=== PATIENT | male | born 1945 | race Caucasian/White ===

== ENCOUNTER 2024-05-15 05:10 | Inpatient (IN) | payer MEDICARE, BC, SELFPAY ==
[2024-05-15] VITALS (8 sets, daily range): BP systolic 139–180; BP diastolic 73–92; PULSE 59–86; RESP 14–18; TEMP 36.1–36.8; O2SAT 97–100; BMI 28.8
--- NOTE | ~2024-05-15 | CT_ITS ---
EXAMINATION: CT abdomen pelvis w con DATE: 05/15/2024 06:11 INDICATION: Abdominal pain. TECHNIQUE: Computed tomography (CT) of the abdomen and pelvis was performed with 100 mL Omnipaque 350 intravenous contrast. Automated exposure control and iterative reconstruction technique were employe d. The dose-length product was 679.13 mGy-cm. COMPARISON: None. FINDINGS: The visualized portions of lung bases demonstrate mild atelectasis. There is a pneumatocele in right lung. No pleural effusion. Calcified right hilar lymph nodes are consistent with old granul omatous disease. Cardiomegaly is noted. There are coronary artery calcifications. No pericardial effu cedrick. There is a small sliding hiatal hernia. There are approximately 5 hypodense masses in the liver measuring up to 18 mm. The gallbladder, spleen, pancreas, and adrenal glands are normal. There are c ysts in the kidneys measuring up to 7.5 cm on the right. There are 3 stones in right kidney measuring up to 4 mm. There is a 3 mm stone in left kidney. The prostate is severely enlarged. There is diffus e bladder wall thickening, likely secondary to chronic outlet obstruction. There are multiple stones in the bladder measuring up to 4 mm. There is diverticulosis of the colon without evidence of diverti culitis. There is focal wall thickening of the ascending colon, consistent with primary malignancy. T he colon is distended proximal to this area. The appendix is normal. There are no pathologically enla rged lymph nodes. There is no free intraperitoneal fluid. There is a right inguinal hernia containing fat. There is severe lumbar spondylosis. There is chronic height loss of multiple vertebral bodies c ourse of L1. IMPRESSION: 1. Focal wall thickening of the ascending colon, consistent with primary malignancy with partial otilia l obstruction. 2. Liver masses, consistent with metastatic disease. Ultrasound-guided core needle biopsy of a liver mass is recommended. Reviewed, dictated and finalized at location A. IMPRESSION: 1. Focal wall thickening of the ascending colon, consistent with primary malign naren with partial bowel obstruction. 2. Liver masses, consistent with metastatic disease. Ultrasound-guided core nee dle biopsy of a liver mass is recommended.
--- NOTE | ~2024-05-15 | US_ITS ---
EXAMINATION: US biopsy liver DATE: 05/18/2024 12:04 INDICATION: Colon cancer with hepatic masses suspicious for metastatic disease TECHNIQUE: The procedure including the risks and benefits was discussed with the patient. Risks discu ssed included bleeding and infection. The patient understood the risks and agreed to proceed. The sk in overlying the liver was prepped and draped in usual sterile fashion. Anesthetic was administered with 1% lidocaine subcutaneously. An 18 gauge core biopsy needle was advanced under continuous ultra sound observation to the lesion of interest. 5 core biopsy specimens were obtained. The needle was removed and the entry site was cleaned and dressed. Post procedure ultrasound demonstrated no hemorr jazmin. FINDINGS: Ultrasound images demonstrate biopsy needle advanced into a subtle approximately 1.5 cm hyp oechoic nodule at the inferior right hepatic lobe which corresponds to the hypodense lesions of penny rn on prior CT. IMPRESSION: 1. Successful Ultrasound-guided biopsy of a 1.5 cm subtly hypoechoic nodule at the inferior right hep atic lobe. Reviewed, dictated and finalized at location A. IMPRESSION: 1. Successful Ultrasound-guided biopsy of a 1.5 cm subtly hypoechoic nodule at the inferior right hepatic lobe.
--- NOTE | ~2024-05-15 | CT_ITS ---
EXAMINATION:CT diagnostic chest w con DATE: 05/16/2024 09:43 INDICATION: Colon cancer. TECHNIQUE: Computed tomography (CT) of the chest was performed with 75 mL Omnipaque 350 intravenous c ontrast. Automated exposure control and iterative reconstruction technique were employed. The dose-le ngth product (DLP) was 456.46 mGy-cm. COMPARISON: CT abdomen and pelvis 05/15/2024 FINDINGS: The lungs demonstrate mild atelectasis. There is a pneumatocele in right lung. A calcified right lung nodule and calcified right hilar lymph nodes are consistent with old granulomatous disease . No pleural effusion. The heart size is normal. No pericardial effusion. There are coronary artery c alcifications. There is contrast in the gallbladder. There are 3 visible hypodense liver masses measu ring up to 14 mm. There are cysts in the kidneys measuring up to 7.7 cm on the right. There is severe cervical and lumbar spondylosis and mild thoracic spondylosis. There is a chronic compression fractu re of L1. IMPRESSION: 1. Liver masses, consistent with metastatic disease. Ultrasound-guided core needle biopsy is recommen ded. Reviewed, dictated and finalized at location A. IMPRESSION: 1. Liver masses, consistent with metastatic disease. Ultrasound-guided core nee dle biopsy is recommended.
[2024-05-15 05:39] LABS: Basophils Absolute Auto 0.1 K/mm3 (0.0-0.1); Basophils Percent Auto 0.7 % (0.2-1.2); Eosinophils Absolute Auto 0.2 K/mm3 (0-0.3); Hematocrit 28.6 % (42.0-52.0); Hemoglobin 7.8 g/dL (14.0-18.0); Immature Granulocyte Absolute 0.02 K/mm3 (0.00-0.031); Immature Granulocyte Percent A 0.3 % (0-0.5); Lymphocytes Absolute Auto 1.27 K/mm3 (0.9-3.2); Lymphocytes Percent Auto 16.8 % (18.3-44.2); Mean Corpuscular HGB Conc 27.3 g/dl (32-36); Mean Corpuscular Volume 73.3 fl (80-100); Mean Platelet Volume 9.1 fl (7.4-10.4); Monocytes Absolute Auto 1.1 K/mm3 (0.1-0.6); Monocytes Percent Auto 14.8 % (2.6-8.5); Neutrophils Percent Auto 65.4 % (45.5-73.1); Platelet Count Result 377 k/mm3 (150-375); White Blood Count 7.6 K/mm3 (4.5-10.0)
[2024-05-15 05:49] LABS: Alanine Aminotransferase 12 U/L (6-50); Alkaline Phosphatase 88 U/L (38-126); Anion Gap 8 mmol/L (4-12); Aspartate Amino Transferase 26 U/L (17-59); Bilirubin,Total 0.3 mg/dL (0.2-1.3); Blood Urea Nitrogen 14 mg/dL (9-20); Calcium 9.5 mg/dL (8.4-10.2); Carbon Dioxide 27 mmol/L (22-30); Chloride 102 mmol/L (98-107); Estimated CRCL calculation 67 ml/min; Estimated Glomerular Filt Rate > 60; Glucose 129 mg/dL (65-110); Lipase 166 U/L (23-300); Sodium 137 mmol/L (137-145)
[2024-05-15 05:54] LABS: Platelet Estimate Adequate (Adequate)
--- NOTE | 2024-05-15 05:54 | ED.GENADULT ---
HPI - General Adult General Chief complaint: Abdominal Pain Stated complaint: abd pain Time Seen by Provider: 05/15/24 05:17 History of Present Illness HPI narrative: patient 78-year-old gentleman who presents emergency department with chief complaint of lower abdominal pain. Patient reports that pain started around 10 30 last night and reports that has been increasing the patient reports some lower quadrants reports worse whenever he ambulates and improved with rest. The patient reports no trauma denies fever denies vomiting denies diarrhea patient reports that the pain is tolerable whenever he is laying on the stretcher Related Data Allergies Allergy/AdvReac Type Severity Reaction Status Date / Time No Known Allergies Allergy Verified 05/15/24 05:16 Review of Systems Review of Systems: A 10 system review of systems was completed on the patient and is negative except for what is stated in the HPI. Nursing and ancillary documentation was reviewed. Exam Narrative: GENERAL: Well-appearing, well-nourished, and in no acute distress. HEAD: Normocephalic, atraumatic. EYES: PERRLA and EOMI. ENT: Nares clear, no rhinorrhea or epistaxis. Mucous membranes moist. NECK: Supple. CHEST: Clear to auscultation. No respiratory distress. HEART: Regular rate and rhythm. No murmur heard. Normal peripheral pulses. ABDOMEN: Soft, tenderness palpation in the lower quadrants of the abdomen no guarding no rebound noted nondistended, normal active bowel sounds. EXTREMITIES: Normal range of motion. No edema. SKIN: Warm, dry, no rash. NEURO: No focal deficits. Alert and oriented x3. PSYCH: Normal mood and affect. Course Vital Signs Vital signs: Vital Signs Temperature 36.8 C 05/15/24 05:16 Pulse Rate 59 L 05/15/24 05:16 Respiratory Rate 14 05/15/24 05:16 Blood Pressure 173/73 H 05/15/24 05:16 Pulse Oximetry 100 05/15/24 05:16 Oxygen Delivery Room Air 05/15/24 05:16 Temperature 36.8 C 05/15/24 05:16 Pulse Rate 73 05/15/24 06:24 Respiratory Rate 14 05/15/24 06:24 Blood Pressure 176/86 H 05/15/24 06:24 Pulse Oximetry 100 05/15/24 06:24 Oxygen Delivery Room Air 05/15/24 05:16 Medical Decision Making KAUSHAL Narrative Medical decision making narrative: differential diagnosis includes intra-abdominal infection, diverticulitis, colitis, intra-abdominal mass, bowel obstruction CT scan of the abdomen pelvis showed partial small bowel obstruction and a mass with possible metastatic lesions. Case was discussed with Dr. Gerardo who will consult on the patient Vital Signs Vital Signs: Vital Signs Temperature 36.8 C 05/15/24 05:16 Pulse Rate 59 L 05/15/24 05:16 Respiratory Rate 14 05/15/24 05:16 Blood Pressure 173/73 H 05/15/24 05:16 Pulse Oximetry 100 05/15/24 05:16 Oxygen Delivery Room Air 05/15/24 05:16 Temperature 36.8 C 05/15/24 05:16 Pulse Rate 73 05/15/24 06:24 Respiratory Rate 14 05/15/24 06:24 Blood Pressure 176/86 H 05/15/24 06:24 Pulse Oximetry 100 05/15/24 06:24 Oxygen Delivery Room Air 05/15/24 05:16 Lab Data 05/15/24 05:30 05/15/24 05:30 Labs: Lab Results 05/15/24 05/15/24 Range/Units 05:30 06:26 WBC 7.6 (4.5-10.0) K/mm3 RBC 3.90 L (4.6-6.20) M/mm3 Hgb 7.8 L (14.0-18.0) g/dL Hct 28.6 L (42.0-52.0) % MCV 73.3 L (80-100) fl MCH 20.0 L (26-34) pg MCHC 27.3 L (32-36) g/dl RDW 19.0 H (11.5-14.5) % Plt Count 377 H (150-375) k/mm3 MPV 9.1 (7.4-10.4) fl Immature Gran % (Auto) 0.3 (0-0.5) % Neut % (Auto) 65.4 (45.5-73.1) % Lymph % (Auto) 16.8 L (18.3-44.2) % [place] % (Auto) 14.8 H (2.6-8.5) % Eos % (Auto) 2.0 (0-4.4) % Baso % (Auto) 0.7 (0.2-1.2) % Lymph # (Auto) 1.27 (0.9-3.2) K/mm3 [place] # (Auto) 1.1 H (0.1-0.6) K/mm3 Eos # (Auto) 0.2 (0-0.3) K/mm3 Baso # (Auto) 0.1 (0.0-0.1) K/mm3 Abs Immat Gran (auto) 0.02
[2024-05-15 05:55] LABS: Anisocytosis 2+; Hypochromasia 1+; Schistocytes None Seen
[2024-05-15 06:42] LABS: Add Urine Microscopic? YES; Appearance Urine Turbid (Clear); Bacteria Urine None Seen /hpf; Bilirubin Urine Negative (Negative); Blood Urine Negative (Negative); Color Urine Yellow (Yellow); Glucose Urine UA Negative (Negative); Ketones Urine Negative (Negative); Leukocyte Esterase Ur Negative LEU/UL (Negative); Nitrate Urine Negative (Negative); Non Pathogenic Casts 0-2; Protein Urine Negative (Negative); RBC Urine 0-2 /hpf (0-2); Specific Grav Ur 1.015 (1.001-1.035); Squamous Epithelial Cell Urine None Seen /hpf (Few); WBC Urine 0-5 /hpf (0-3)
--- NOTE | 2024-05-15 09:22 | PM.IMHP ---
H&P: HPI History of Present Illness Date/Time: 05/15/24 09:22 Chief Complaint: Abdominal pain nausea vomiting Narrative: patient 78-year-old gentleman who presents emergency department with chief complaint of lower abdominal pain. Patient reports that pain started around 10 30 last night and reports that has been increasing the patient reports some lower quadrants reports worse whenever he ambulates and improved with rest. The patient reports no trauma denies fever denies vomiting denies diarrhea patient reports that the pain is tolerable whenever he is laying on the stretcher. ED evaluation revealed partial small-bowel obstruction along with ascending colon mass liver masses. He is admitted in the setting Review of Systems Review of Systems: - CONSTITUTIONAL: Denies weight loss, fever and chills. - HEENT: Denies changes in vision and hearing - RESPIRATORY: Denies SOB and cough. - CV: Denies palpitations and CP. - GI: Reports abdominal pain, nausea, vomiting and denies diarrhea. - : Denies dysuria and urinary frequency. - MSK: Denies myalgia and joint pain. - SKIN: Denies rash and pruritus. - NEUROLOGICAL: Denies headache and syncope. - PSYCHIATRIC: Denies recent changes in mood. Denies anxiety and depression. [facility] Past Medical History Medical History Colonic mass Metastatic disease Microcytic anemia Nausea Social History Social History Smokeless tobacco user: chewing tobacco Second hand tobacco smoke exposure: No Alcohol intake: current Drinks per week: 25 Substance use: never Substance use type: does not use Do You Feel Safe in your Home?: Yes Lack of Transportation: YES Lack of Food: Never True Current Housing: I Do Not Have Housing Concerned About Future Housing: No Difficulty Paying Gas/Electric Bills: No Difficulty Paying for Meds: No Currently Unemployed: No Education: Associate Degree Difficulty w/ Childcare or Family Care: No Spiritual care concerns: No Meds Home Medications and Allergies Home Medications Medication Instructions Recorded Confirmed Type aspirin 81 mg tablet 81 mg PO DAILY 05/15/24 05/15/24 History atorvastatin 40 mg tablet (Lipitor) 40 mg DAILY 05/15/24 05/15/24 History Allergies Allergy/AdvReac Type Severity Reaction Status Date / Time No Known Allergies Allergy Verified 05/15/24 05:16 Vital Signs Vital Signs - 24 hr 05/15/24 05:16 05/15/24 06:24 05/15/24 07:00 Temperature 98.2 F 97.8 F Pulse Rate 59 L 73 82 Respiratory Rate 14 14 16 Blood Pressure 173/73 H 176/86 H 168/90 H Pulse Oximetry 100 100 98 Oxygen Delivery Room Air 05/15/24 08:00 05/15/24 09:00 Temperature 97.8 F 97.7 F Pulse Rate 86 82 Respiratory Rate 16 16 Blood Pressure 162/88 H 158/86 H Pulse Oximetry 97 97 Oxygen Delivery Exam Narrative: GENERAL: Well-appearing, well-nourished, and in no acute distress. HEAD: Normocephalic, atraumatic. EYES: PERRLA and EOMI. ENT: Nares clear, no rhinorrhea or epistaxis. Mucous membranes moist. NECK: Supple. CHEST: Clear to auscultation. No respiratory distress. HEART: Regular rate and rhythm. No murmur heard. Normal peripheral pulses. ABDOMEN: Soft, tenderness palpation in the lower quadrants of the abdomen no guarding no rebound noted nondistended, normal active bowel sounds. EXTREMITIES: Normal range of motion. No edema. SKIN: Warm, dry, no rash. NEURO: No focal deficits. Alert and oriented x3. PSYCH: Normal mood and affect. H&P: Results Labs Labs: Short CBC 05/15/24 Range/Units 05:30 WBC 7.6 (4.5-10.0) K/mm3 Hgb 7.8 L (14.0-18.0) g/dL Hct 28.6 L (42.0-52.0) % Plt Count 377 H (150-375) k/mm3 [facility] 05/15/24 05:30 Sodium 137 Potassium 4.0 Chloride 102 Carbon Dioxide 27 BUN 14 Creatinine 0.80 Glucose 129 H Calcium 9.5
[2024-05-15 09:50] LABS: Iron 32 ug/dL (49-181)
--- NOTE | 2024-05-15 09:50 | ADMGEN ---
This patient, Eamon Wade, was admitted to 3 [facility] Room 301-01. Patient/family oriented to hospital policies and general routines including ID bracelet, bed and alarms, visiting hours, pain management, procedures, bathroom and other care routines, personal items, smoking policy, room service/diet, and visiting hours. Information on how to activate the Rapid Response Team has been discussed. Patient/Family are encouraged to report perceived risks to care and to ask questions if they do not understand what they are told or what they should do.
[2024-05-15 09:53] LABS: Lactate Dehydrogenase 161 U/L (120-246)
[2024-05-15 10:07] LABS: Percent Iron Saturation 7 % (20-50)
[2024-05-15 10:26] LABS: Ferritin 5.92 ng/mL (11.1-264)
[2024-05-15 10:45] LABS: Immature Reticulocyte Fraction 23.6 % (3.0-15.9); Reticulocyte Hemoglobin Conten 21.8 pg (28.2-36.6); Reticulocyte Percent 1.45 % (0.7-4.3); Reticulocytes Absolute 0.06 10^6/uL (0.02-0.10)
[2024-05-15] MEDS: SODIUM CHLORIDE 0.9% IV 1,000 ML 100 ML IV CONT (10:50)
[2024-05-15 11:00] LABS: Folic Acid 11.8 ng/mL (2.76->20)
--- NOTE | 2024-05-15 11:08 | WPDGICN ---
Assessment and Plan Assessment and plan (1) Colonic mass: Code(s): K63.89 - Other specified diseases of intestine Status: Acute Assessment and Plan: most likely colon cancer, if he is able to tolerate liquid diet then we attempt colonoscopy Friday (he denies any more nausea or pain today) will get CEA level and ask oncology to see (2) Partial small bowel obstruction: Code(s): K56.600 - Partial intestinal obstruction, unspecified as to cause Status: Acute Assessment and Plan: clinically improved surgery to see patient (3) Metastatic disease: Code(s): C79.9 - Secondary malignant neoplasm of unspecified site Status: Acute Assessment and Plan: unfortunately with mets to liver oncology to see (4) Microcytic anemia: Code(s): D50.9 - Iron deficiency anemia, unspecified Status: Acute Assessment and Plan: probably from malignancy (5) Abdominal pain: Code(s): R10.9 - Unspecified abdominal pain Status: Acute (6) Nausea: Code(s): R11.0 - Nausea Status: Acute GI Consult Note Consult date/time: 05/15/24 11:08 Reason for consult: metastatic disease, partial sbo HPI: Eamon Wade is a 78 year old male here with new onset of lower abdominal pain that got severe, cramping and also nausea. Because pain worsened he came to ER, CT scan showed partial SBO with possible ascending mass and liver mets (he says that had colonoscopy about 6 years ago). Also noted hgb 7.5 with microcytosis. He is feeling better now, no more pain and he is having BM's Review of Systems Constitutional: Constitutional: Denies headache(s) and Denies weakness Eyes: Eyes: Denies blurry vision ENT: Reports Normal hearing present, Denies headache(s) and Denies neck pain Cardiovascular: Cardiovascular: Denies chest pain and Denies dyspnea Respiratory: Respiratory: Denies dyspnea Gastrointestinal: Gastrointestinal: Reports no additional gastrointestinal complaints Genitourinary: Genitourinary: Denies dysuria Musculoskeletal: Musculoskeletal: Denies neck pain Integumentary/Breasts: Skin/Breast: Denies dry skin Neurologic: Reports Normal hearing present, Denies headache(s) and Denies weakness Psychiatric: Psychiatric: Denies anxiety Endocrine: Endocrine: Denies change in body appearance Hematologic/Lymphatic: Hematologic/Lymphatic: Denies easy bleeding Allergic/Immunologic: Allergic/Immunologic: Denies urticaria PMFSH Past Medical History Medical History (Updated 05/15/24 @ 11:11 by Ollie Denis MD) Colonic mass Metastatic disease Microcytic anemia Nausea Social History Social History Smokeless tobacco user: chewing tobacco Second hand tobacco smoke exposure: No Alcohol intake: current Drinks per week: 25 Substance use: never Substance use type: does not use Do You Feel Safe in your Home?: Yes Lack of Transportation: YES Lack of Food: Never True Current Housing: I Do Not Have Housing Concerned About Future Housing: No Difficulty Paying Gas/Electric Bills: No Difficulty Paying for Meds: No Currently Unemployed: No Education: Associate Degree Difficulty w/ Childcare or Family Care: No Spiritual care concerns: No Meds Home Medications and Allergies Home Medications Medication Instructions Recorded Confirmed Type aspirin 81 mg tablet 81 mg PO DAILY 05/15/24 05/15/24 History atorvastatin 40 mg tablet (Lipitor) 40 mg DAILY 05/15/24 05/15/24 History Allergies Allergy/AdvReac Type Severity Reaction Status Date / Time No Known Allergies Allergy Verified 05/15/24 05:16 Vital Signs Vital Signs - 24 hr 05/15/24 05:16 05/15/24 06:24 05/15/24 07:00 Temperature 98.2 F 97.8 F Pulse Rate 59 L 73 82 Respiratory Rate 14 14 16 Blood Pressure 173/73 H 176/86 H 168/90 H Pulse Oximetry 100 100 98 Oxygen Delivery Amada
--- NOTE | 2024-05-15 12:01 | WPDCN ---
Assessment and Plan Assessment and plan (1) Colonic mass: Code(s): K63.89 - Other specified diseases of intestine Status: Acute Assessment and Plan: Patient has a partially obstructing right ascending colon mass. Likely represents a malignant neoplasm. He is having bowel movements today now and is tolerating some clear liquids. He has been seen by GI and a colonoscopy is planned for Friday as long as he can tolerate a bowel prep. Will need to wait for pathology results. Because as partial obstruction and he does not have other contraindications at this time I think he would benefit from having a right hemicolectomy as he will eventually completely obstructed. This can likely be done during this admission. The only other obvious metastatic disease right now in the abdomen it is the small spots in his liver which will need to be biopsied. Getting oncology on board early would be recommended. Would order a full staging CT of the chest abdomen and pelvis with IV contrast. (2) Metastatic disease: Code(s): C79.9 - Secondary malignant neoplasm of unspecified site Status: Acute Assessment and Plan: Patient appears to have 5 lesions in the liver showed relatively small. Radiologist feels that these can be biopsy with ultrasound-guided liver biopsy. That has been ordered by the primary team. Will await results. HPI Data of Consult Date/Time: 05/15/24 12:01 Requesting Physician: Toney Santacruz MD Primary Care Provider: UNKNOWN,DOCTOR Consult Narrative Reason for consult: Right colon mass with partial obstruction, multiple liver masses Narrative: Eamon Wade is a 78 year old male who presents to the emergency room yesterday with the sudden onset of lower abdominal pain after eating some large meals. He presented to the emergency room for his pain upon workup he was found to be anemic with a hemoglobin of about 7. CT scan abdomen pelvis was performed showing a thickening of the right ascending colon with partial obstruction. Multiple small liver masses were seen consistent with metastatic disease. Patient states he had a colonoscopy done greater than 10 years ago in which x3 benign polyps were removed. The colonoscopy was done down in at [facility] in [facility]. He had another colonoscopy done about 6 or 7 years ago which time he stated there were no polyps removed. He has not had any prior abdominal surgery. He did have an open left inguinal hernia repair with mesh about 5 years ago. He denies any prior history of diabetes, congestive heart failure, myocardial infarction, or stroke. He has prior bilateral knee surgeries in the past many years ago but does not have any replaced joints. Review of Systems Review of Systems: The remainder of the review of systems to include constitutional, HEENT, cardiovascular, respiratory, GI, , integumentary, musculoskeletal, endocrine, immunologic, hematologic, psychiatric, and neurologic are all negative except for which is mentioned above in the HPI. [facility] Past Medical History Medical History Colonic mass Metastatic disease Microcytic anemia Nausea Social History Social History Smokeless tobacco user: chewing tobacco Second hand tobacco smoke exposure: No Alcohol intake: current Drinks per week: 25 Substance use: never Substance use type: does not use Do You Feel Safe in your Home?: Yes Lack of Transportation: YES Lack of Food: Never True Current Housing: I Do Not Have Housing Concerned About Future Housing: No Difficulty Paying Gas/Electric Bills: No Difficulty Paying for Meds: No Currently Unemployed: No Education: Associate Degree Difficulty w/ Childcare or Family Care: No Spiritual care concerns: No Meds Home Medications and Allergies Home Medications Medic
[2024-05-15 12:48] LABS: Hematocrit 28.8 % (42.0-52.0); Hemoglobin 7.7 g/dL (14.0-18.0)
[2024-05-15] MEDS: IRON SUCROSE COMPLEX 200 MG in SODIUM CHLORIDE 0.9% IV 100 ML 220 MG IVPB (16:12)
[2024-05-15 17:06] LABS: Carcinoembryonic Antigen 1.8 ng/mL (0.0-3.0)
[2024-05-15 18:13] LABS: Hematocrit 25.9 % (42.0-52.0); Hemoglobin 7.4 g/dL (14.0-18.0)
[2024-05-15 21:47] LABS: IFOB Positive Control Positive; Immunochemical Fecal Occult Bl Negative (N)
[2024-05-15 23:34] LABS: Hematocrit 24.1 % (42.0-52.0)
[2024-05-15 23:45] LABS: Hemoglobin 6.9 g/dL (14.0-18.0)
[2024-05-16] VITALS (9 sets, daily range): BP systolic 123–173; BP diastolic 56–83; PULSE 68–72; RESP 15–20; TEMP 36.1–37; O2SAT 95–100
[2024-05-16] MEDS: SODIUM CHLORIDE 0.9% IV 1,000 ML 70 ML IV CONT (00:31)
[2024-05-16 00:37] LABS: Hematocrit 25.6 % (42.0-52.0)
[2024-05-16] MEDS: SODIUM CHLORIDE 0.9% IV 250 ML 30 ML IV CONT (01:45)
[2024-05-16 08:08] LABS: Carcinoembryonic Antigen 1.8 ng/mL (0.0-3.0)
[2024-05-16] MEDS: CYANOCOBALAMIN INJ 1,000 MCG/ML VIAL 1000 MCG IM (08:21)
[2024-05-16] MEDS: ATORVASTATIN 40 MG TABLET BY MOUTH (08:21)
--- NOTE | 2024-05-16 10:12 | WPDPN ---
Progress Note: A&P Assessment and Plan (1) Microcytic anemia: Code(s): D50.9 - Iron deficiency anemia, unspecified Status: Acute Assessment and Plan: Likely due to probable right colon cancer. Level is stable. (2) Colonic mass: Code(s): K63.89 - Other specified diseases of intestine Status: Acute Assessment and Plan: Right ascending colon mass which is only partially obstructive. Most likely represents a malignant neoplasm. Colonoscopy is set for tomorrow to evaluate and get a biopsy. Eventually he will obstruct and so as long as there is no contraindication I would recommend a right hemicolectomy hopefully via hand assisted laparoscopic approach. The biopsy reveals primary colonic malignancy with liver metastasis then certainly get oncology on board sooner than later. (3) Liver mass: Code(s): R16.0 - Hepatomegaly, not elsewhere classified Status: Acute Assessment and Plan: Multiple small liver masses seen. Radiologist feels that he could be biopsied with ultrasound guidance. Ultrasound-guided liver biopsy of the mass is already ordered. Await results. Subjective Date/time seen: 05/16/24 10:12 Interval history: Doing well this morning. He is tolerating clear liquids. He really wants some coffee. No abdominal pain or nausea. Her CEA level was normal at 1.8. Plans is for a colonoscopy tomorrow as long as he can bowel prep and then get a ultrasound-guided biopsy of the liver lesions. Exam GI: Other: Abdomen is soft and nondistended. Nontender. No masses. Benign. Objective Data Vital Signs Vital Signs: Vital Signs - 24 hr 05/15/24 10:16 05/15/24 14:00 05/15/24 20:46 Temperature 36.1 C L 36.1 C L Pulse Rate 63 69 Respiratory Rate 18 18 Blood Pressure 139/92 H 180/88 H Pulse Oximetry 100 99 Oxygen Delivery Room Air 05/15/24 21:00 05/15/24 20:00 05/16/24 01:46 Temperature 36.4 C Pulse Rate 72 Respiratory Rate 18 Blood Pressure 168/82 H 158/78 H Pulse Oximetry 96 Oxygen Delivery Room Air 05/16/24 02:03 05/16/24 03:03 05/16/24 04:03 Temperature 36.4 C L 36.7 C 37.0 C Pulse Rate 68 72 68 Respiratory Rate 18 20 18 Blood Pressure 160/80 H 154/66 H 160/69 H Pulse Oximetry 100 95 95 Oxygen Delivery 05/16/24 05:03 05/16/24 05:23 05/16/24 06:00 Temperature 36.1 C L 36.1 C L 37.0 C Pulse Rate 69 72 69 Respiratory Rate 16 15 18 Blood Pressure 132/56 L 123/60 160/69 H Pulse Oximetry 95 95 95 Oxygen Delivery Intake/Output Intake/Output: Intake & Output 05/13/24 05/14/24 05/15/24 05/16/24 23:59 23:59 23:59 23:59 Intake Total 2732.0 823.8 Output Total 1 Balance 2731.0 823.8 Meds/Results Medications: Active Medications Generic Name Dose Route Start Last Admin Trade Name Freq PRN Reason Stop Dose Admin Atorvastatin Calcium 40 mg 05/16/24 09:00 05/16/24 08:21 Atorvastatin 40 Mg Tablet BY MOUTH 40 mg DAILY DANDRE Administration Cyanocobalamin 1,000 mcg 05/16/24 09:00 05/16/24 08:21 Cyanocobalamin Inj 1,000 Mcg/Ml Vial IM 05/23/24 08:59 1,000 mcg DAILY DANDRE Administration Sodium Chloride 1,000 mls @ 70 mls/hr 05/15/24 07:05 05/16/24 05:24 Normal Saline Iv IV CONT 70 mls/hr .[id number] DANDRE Infusion Morphine Sulfate 2 mg 05/15/24 07:01 Morphine Sulfate (*Crx) 2 Mg/Ml Inj IV PUSH Q2H PRN Pain Rated 7-10 Ondansetron HCl 4 mg 05/15/24 07:01 Ondansetron Inj 4 Mg/2 Ml Vial IV PUSH Q4H PRN Nausea Radiology Results: ITS Impressions Abdomen/Pelvis CT 05/15/24 06:13 IMPRESSION: 1. Focal wall thickening of the ascending colon, consistent with primary malignancy with partial bowel obstruction. 2. Liver masses, consistent with metastatic disease. Ultrasound-guided core needle biopsy of a liver mass is recommended. Chest CT 05/16/24 09:47 IMPRESSION: 1. Liver masses, consistent with metastatic disease. Ultrasound-guided core
--- NOTE | 2024-05-16 11:48 | PM.IMPN ---
Progress Note: A&P Assessment and Plan (1) Partial small bowel obstruction: Code(s): K56.600 - Partial intestinal obstruction, unspecified as to cause Status: Acute (2) Intestinal mass: Code(s): K63.89 - Other specified diseases of intestine Status: Acute (3) Abdominal pain: Code(s): R10.9 - Unspecified abdominal pain Status: Acute (4) Anemia: Code(s): D64.9 - Anemia, unspecified Status: Acute Plan This is a 78-year-old male presents to the ED with complaint of lower abdominal pain which started last night constant progressive 3 worsening worse with ambulation and improved with rest. Associated nausea and vomiting. On ED evaluation vitals were stable. Laboratory evaluation showed normal WBC count at 7.6 hemoglobin 7.8 no prior levels available. Anemia is microcytic hypochromic. Renal function and came panel was unremarkable. LFTs were normal urinalysis was negative lipase was normal. CT abdomen pelvis was performed. CT abdomen pelvis reveals focal wall thickening of the descending colon consistent with primary malignancy with partial bowel obstruction. There are also numerous liver masses consistent with metastatic disease. Ultrasound-guided core needle biopsy of the liver masses recommended. GI and General surgery has been consulted. Plan for colonoscopy tomorrow. No active vomiting and hence no NG tube splint placed. Also have ordered IR perform ultrasound-guided biopsy of the liver masses. CEA less came back normal. Anemia likely related to this mass. Iron panel suggestive of iron deficiency. IV Venofer. Also has vitamin B12 deficiency. CT chest reviewed. DVT prophylaxis SCDs Code status full code Subjective Date/time seen: 05/16/24 11:48 Interval history: No overnight events. Received 1 unit of packed red blood cells yesterday for hemoglobin 6.9. Received IV iron as well as vitamin B12. Review of Systems Review of Systems: All systems reviewed & are unremarkable except as noted in HPI and below Exam Narrative: GENERAL: Well-appearing, well-nourished, and in no acute distress. HEAD: Normocephalic, atraumatic. EYES: PERRLA and EOMI. ENT: Nares clear, no rhinorrhea or epistaxis. Mucous membranes moist. NECK: Supple. CHEST: Clear to auscultation. No respiratory distress. HEART: Regular rate and rhythm. No murmur heard. Normal peripheral pulses. ABDOMEN: Soft, tenderness palpation in the lower quadrants of the abdomen no guarding no rebound noted nondistended, normal active bowel sounds. EXTREMITIES: Normal range of motion. No edema. SKIN: Warm, dry, no rash. NEURO: No focal deficits. Alert and oriented x3. PSYCH: Normal mood and affect. Objective Data Vital Signs Vital Signs: Vital Signs - 24 hr 05/15/24 14:00 05/15/24 20:46 05/15/24 21:00 Temperature 97.0 F L 97.0 F L Pulse Rate 63 69 Respiratory Rate 18 18 Blood Pressure 139/92 H 180/88 H 168/82 H Pulse Oximetry 100 99 Oxygen Delivery 05/15/24 20:00 05/16/24 01:46 05/16/24 02:03 Temperature 97.6 F 97.5 F L Pulse Rate 72 68 Respiratory Rate 18 18 Blood Pressure 158/78 H 160/80 H Pulse Oximetry 96 100 Oxygen Delivery Room Air 05/16/24 03:03 05/16/24 04:03 05/16/24 05:03 Temperature 98.0 F 98.6 F 97.0 F L Pulse Rate 72 68 69 Respiratory Rate 20 18 16 Blood Pressure 154/66 H 160/69 H 132/56 L Pulse Oximetry 95 95 95 Oxygen Delivery 05/16/24 05:23 05/16/24 06:00 05/16/24 08:20 Temperature 97 F L 98.6 F Pulse Rate 72 69 Respiratory Rate 15 18 Blood Pressure 123/60 160/69 H Pulse Oximetry 95 95 Oxygen Delivery Room Air Intake/Output Intake/Output: Intake & Output 05/13/24 05/14/24 05/15/24 05/16/24 23:59 23:59 23:59 23:59 Intake Total 2732.0 1423.8 Output Total 1 Balance 2731.0 1423.8 Meds/Results Medications: Active Medications Generic Name Dose Route Start Last Admin Trade Name Freq PRN Reason Stop Dose Admin
--- NOTE | 2024-05-16 14:21 | WPDGIPROGNO ---
Progress Note: A&P Assessment and Plan (1) Colonic mass: Code(s): K63.89 - Other specified diseases of intestine Status: Acute Assessment and Plan: will proceed with colonoscopy tomorrow, no more pain or nausea he should be able to tolerate bowel prep, therefore no need to ask radiology for liver biopsy- will cancel order also will need oncology evaluation (2) Metastatic disease: Code(s): C79.9 - Secondary malignant neoplasm of unspecified site Status: Acute Assessment and Plan: primary probably colon (3) Partial small bowel obstruction: Code(s): K56.600 - Partial intestinal obstruction, unspecified as to cause Status: Acute Assessment and Plan: resolved (4) Nausea: Code(s): R11.0 - Nausea Status: Acute (5) Microcytic anemia: Code(s): D50.9 - Iron deficiency anemia, unspecified Status: Acute Assessment and Plan: from colon mass Subjective Date/time seen: 05/16/24 14:21 Interval history: had BM and no pain Review of Systems Review of Systems: All systems reviewed & are unremarkable except as noted in HPI and below Exam Const: General: comfortable and no acute distress HENMT: Face/Nose/Sinus: Normal nares present Eyes: General: appearance normal, both eyes and all related structures Neck: Neck: no JVD Resp: Auscultation: clear to auscultation bilaterally Cardio: Rate: regular rate Rhythm: regular rhythm GI: Inspection: non-distended GI Palp: Yes Soft to palpation, Yes Tenderness to palpation present (GI) (minimal pain but almost gone, no rebound) and No Guarding due to palpation present (GI) Skin: General skin exam: normal color Neuro: General: gait normal Speech: normal speech Extrem: General: normal to inspection Psych: Mental Status: mental status grossly normal Objective Data Vital Signs Vital Signs: Vital Signs - 24 hr 05/15/24 20:46 05/15/24 21:00 05/15/24 20:00 Temperature 97.0 F L Pulse Rate 69 Respiratory Rate 18 Blood Pressure 180/88 H 168/82 H Pulse Oximetry 99 Oxygen Delivery Room Air 05/16/24 01:46 05/16/24 02:03 05/16/24 03:03 Temperature 97.6 F 97.5 F L 98.0 F Pulse Rate 72 68 72 Respiratory Rate 18 18 20 Blood Pressure 158/78 H 160/80 H 154/66 H Pulse Oximetry 96 100 95 Oxygen Delivery 05/16/24 04:03 05/16/24 05:03 05/16/24 05:23 Temperature 98.6 F 97.0 F L 97 F L Pulse Rate 68 69 72 Respiratory Rate 18 16 15 Blood Pressure 160/69 H 132/56 L 123/60 Pulse Oximetry 95 95 95 Oxygen Delivery 05/16/24 06:00 05/16/24 08:20 Temperature 98.6 F Pulse Rate 69 Respiratory Rate 18 Blood Pressure 160/69 H Pulse Oximetry 95 Oxygen Delivery Room Air Intake/Output Intake/Output: Intake & Output 05/13/24 05/14/24 05/15/24 05/16/24 23:59 23:59 23:59 23:59 Intake Total 2732.0 1423.8 Output Total 1 Balance 2731.0 1423.8 Meds/Results Medications: Active Medications Generic Name Dose Route Start Last Admin Trade Name Freq PRN Reason Stop Dose Admin Atorvastatin Calcium 40 mg 05/16/24 09:00 05/16/24 08:21 Atorvastatin 40 Mg Tablet BY MOUTH 40 mg DAILY DANDRE Administration Bisacodyl 20 mg 05/16/24 17:00 Bisacodyl 5 Mg Tablet Ec PO 05/16/24 17:01 ONCE ONE Cyanocobalamin 1,000 mcg 05/16/24 09:00 05/16/24 08:21 Cyanocobalamin Inj 1,000 Mcg/Ml Vial IM 05/23/24 08:59 1,000 mcg DAILY DANDRE Administration Magnesium Citrate 300 ml 05/17/24 02:00 Magnesium Citrate 300 Ml Btl PO 05/17/24 02:01 ONCE ONE Morphine Sulfate 2 mg 05/15/24 07:01 Morphine Sulfate (*Crx) 2 Mg/Ml Inj IV PUSH Q2H PRN Pain Rated 7-10 Ondansetron HCl 4 mg 05/15/24 07:01 Ondansetron Inj 4 Mg/2 Ml Vial IV PUSH Q4H PRN Nausea Polyethylene Glycol 238 gm 05/16/24 17:00 Polyethylene Glycol 3350 238 Gm Bottle PO 05/16/24 17:01 ONCE ONE Radiology Results: ITS Impression
[2024-05-16] MEDS: polyethylene glycoL 3350 238 GM BOTTLE PO (18:06)
[2024-05-16] MEDS: BISACODYL 5 MG TABLET EC 20 MG PO (18:06)
[2024-05-17] VITALS (7 sets, daily range): BP systolic 135–171; BP diastolic 63–88; PULSE 65–81; RESP 16–25; TEMP 36.3–37.3; O2SAT 95–99
[2024-05-17] MEDS: MAGNESIUM CITRATE 300 ML BTL PO (01:49)
[2024-05-17 05:14] LABS: Basophils Percent Auto 0.7 % (0.2-1.2); Eosinophils Absolute Auto 0.3 K/mm3 (0-0.3); Eosinophils Percent Auto 4.2 % (0-4.4); Hematocrit 29.2 % (42.0-52.0); Hemoglobin 8.4 g/dL (14.0-18.0); Immature Granulocyte Absolute 0.02 K/mm3 (0.00-0.031); Immature Granulocyte Percent A 0.3 % (0-0.5); Lymphocytes Absolute Auto 1.05 K/mm3 (0.9-3.2); Lymphocytes Percent Auto 17.1 % (18.3-44.2); Mean Corpuscular HGB Conc 28.8 g/dl (32-36); Mean Corpuscular Hemoglobin 20.9 pg (26-34); Mean Corpuscular Volume 72.8 fl (80-100); Mean Platelet Volume 9.2 fl (7.4-10.4); Monocytes Percent Auto 16.4 % (2.6-8.5); Neutrophils Absolute Auto 3.8 K/mm3 (1.3-6.7); Neutrophils Percent Auto 61.3 % (45.5-73.1); Platelet Count Result 340 k/mm3 (150-375); Red Blood Count 4.01 M/mm3 (4.6-6.20); Red Cell Distribution Width 19.5 % (11.5-14.5); White Blood Count 6.2 K/mm3 (4.5-10.0)
[2024-05-17 05:27] LABS: INR 1.2; Prothrombin Time 15.3 Seconds (11.1-14.7)
[2024-05-17 05:28] LABS: Partial Thromboplastin Time 29.7 Seconds (22.3-36.8)
[2024-05-17 05:34] LABS: Alanine Aminotransferase 13 U/L (6-50); Albumin Level 3.9 g/dL (3.5-5.1); Alkaline Phosphatase 80 U/L (38-126); Anion Gap 10 mmol/L (4-12); Aspartate Amino Transferase 29 U/L (17-59); Bilirubin,Total 0.4 mg/dL (0.2-1.3); Blood Urea Nitrogen 7 mg/dL (9-20); Calcium 9.4 mg/dL (8.4-10.2); Carbon Dioxide 24 mmol/L (22-30); Chloride 101 mmol/L (98-107); Estimated CRCL calculation 67 ml/min; Estimated Glomerular Filt Rate > 60; Glucose 109 mg/dL (65-110); Magnesium 2.1 mg/dL (1.6-2.3); Potassium 3.5 mmol/L (3.4-5.0); Sodium 135 mmol/L (137-145)
[2024-05-17 05:58] LABS: Anisocytosis 1+; Giant Platelets Present; Hypochromasia 1+; Platelet Clumps Present; Platelet Estimate Adequate (Adequate)
[2024-05-17 05:59] LABS: Microcytosis 1+ (NORMAL); Schistocytes None Seen
--- NOTE | 2024-05-17 11:13 | PC.NURSE ---
Pt. down to GI lab via wheelchair.
[2024-05-17] MEDS: LACTATED RINGERS 1,000 ML 150 ML IV CONT (11:24)
--- NOTE | 2024-05-17 11:40 | WPDANESEPPF ---
Anes - Initial Pre Proc Eval Procedure: Operation Date: 05/17/24 16:00 Proposed Procedures p Colonoscopy - Ollie Denis MD Date/Time: 05/17/24 11:40 Surgeon: Toney Santacruz MD Pre Op Diagnosis: abdominal pain,partial small bowel obsruction,inte Patient Data Age: 78 Gender: M Height: 1.78 m Weight: 91.1 kg Last Vital Signs Temp 97.8 F 05/17/24 11:22 Pulse 66 05/17/24 11:22 Resp 19 05/17/24 11:22 BP 147/70 H 05/17/24 11:22 Pulse Ox 99 05/17/24 11:22 O2 Del Method Room Air 05/17/24 11:22 Allergies Allergy/AdvReac Type Severity Reaction Status Date / Time No Known Allergies Allergy Verified 05/17/24 11:19 Home Medications Medication Instructions Recorded Confirmed Type aspirin 81 mg tablet 81 mg PO DAILY 05/15/24 05/15/24 History atorvastatin 40 mg tablet (Lipitor) 40 mg DAILY 05/15/24 05/15/24 History Laboratory Tests 05/17/24 05:05 WBC 6.2 K/mm3 (4.5-10.0) RBC 4.01 L M/mm3 (4.6-6.20) Hgb 8.4 L g/dL (14.0-18.0) Hct 29.2 L % (42.0-52.0) MCV 72.8 L fl (80-100) MCH 20.9 L pg (26-34) MCHC 28.8 L g/dl (32-36) RDW 19.5 H % (11.5-14.5) Plt Count 340 k/mm3 (150-375) MPV 9.2 fl (7.4-10.4) Immature Gran % (Auto) 0.3 % (0-0.5) Neut % (Auto) 61.3 % (45.5-73.1) Lymph % (Auto) 17.1 L % (18.3-44.2) Sullivan % (Auto) 16.4 H % (2.6-8.5) Eos % (Auto) 4.2 % (0-4.4) Baso % (Auto) 0.7 % (0.2-1.2) Lymph # (Auto) 1.05 K/mm3 (0.9-3.2) Sullivan # (Auto) 1.0 H K/mm3 (0.1-0.6) Eos # (Auto) 0.3 K/mm3 (0-0.3) Baso # (Auto) 0.0 K/mm3 (0.0-0.1) Abs Immat Gran (auto) 0.02 K/mm3 (0.00-0.031) Absolute Neuts (auto) 3.8 K/mm3 (1.3-6.7) Absolute Nucleated RBC 0.000 K/mm3 (0.0-0.012) Nucleated RBC % 0.0 % (0.0-0.2) Platelet Estimate Adequate (Adequate) Clumped Platelets Present Giant Platelets Present Hypochromasia 1+ Anisocytosis 1+ Microcytosis 1+ (NORMAL) Schistocytes None seen PT 15.3 H Seconds (11.1-14.7) INR 1.2 APTT 29.7 Seconds (22.3-36.8) Sodium 135 L mmol/L (137-145) Potassium 3.5 mmol/L (3.4-5.0) Chloride 101 mmol/L (98-107) Carbon Dioxide 24 mmol/L (22-30) Anion Gap 10 mmol/L (4-12) BUN 7 L D mg/dL (9-20) Creatinine 0.80 mg/dL (0.7-1.3) Estim Creat Clear Calc 67 ml/min Estimated GFR > 60 (59 - ) Glucose 109 mg/dL (65-110) Calcium 9.4 mg/dL (8.4-10.2) Magnesium 2.1 mg/dL (1.6-2.3) Total Bilirubin 0.4 mg/dL (0.2-1.3) AST 29 U/L (17-59) ALT 13 U/L (6-50) Alkaline Phosphatase 80 U/L (38-126) Total Protein 7.0 g/dL (6.3-8.2) Albumin 3.9 g/dL (3.5-5.1) Patient hx anesthesia problems: none Family hx anesthesia problems: none Results Review: All pre-operative results and documents have been reviewed as part of the pre-operative evaluation. [facility] Past Medical History Medical History Colonic mass Metastatic disease Microcytic anemia Nausea Social History Social History Smokeless tobacco user: chewing tobacco Second hand tobacco smoke exposure: No Alcohol intake: current Drinks per week: 25 Substance use: never Substance use type: does not use Do You Feel Safe in your Home?: Yes Lack of Transportation: YES Lack of Food: Never True Current Housing: I Do Not Have Housing Concerned About Future Housing: No Difficulty Paying Gas/Electric Bills: No Difficulty Paying for Meds: No Currently Unemployed: No Education: Associate Degree Difficulty w/ Childcare or Family Care: No Spiritual care concerns: No Anes - Eval Final PreProcedure Day of Procedure 05/17/24 11:40 Patient weight: normal Heart: regular rate and rhythm Jim
--- NOTE | 2024-05-17 12:34 | PM.IMPN ---
Progress Note: A&P Assessment and Plan (1) Partial small bowel obstruction: Code(s): K56.600 - Partial intestinal obstruction, unspecified as to cause Status: Acute (2) Intestinal mass: Code(s): K63.89 - Other specified diseases of intestine Status: Acute (3) Abdominal pain: Code(s): R10.9 - Unspecified abdominal pain Status: Acute (4) Anemia: Code(s): D64.9 - Anemia, unspecified Status: Acute Plan This is a 78-year-old male presents to the ED with complaint of lower abdominal pain which started last night constant progressive 3 worsening worse with ambulation and improved with rest. Associated nausea and vomiting. On ED evaluation vitals were stable. Laboratory evaluation showed normal WBC count at 7.6 hemoglobin 7.8 no prior levels available. Anemia is microcytic hypochromic. Renal function and came panel was unremarkable. LFTs were normal urinalysis was negative lipase was normal. CT abdomen pelvis was performed. CT abdomen pelvis reveals focal wall thickening of the descending colon consistent with primary malignancy with partial bowel obstruction. There are also numerous liver masses consistent with metastatic disease. Ultrasound-guided core needle biopsy of the liver masses recommended. GI and General surgery has been consulted. Plan for colonoscopy tomorrow. No active vomiting and hence no NG tube splint placed. Also have ordered IR perform ultrasound-guided biopsy of the liver masses which has been canceled by the GI doctor.. CEA less came back normal. Anemia likely related to this mass. Iron panel suggestive of iron deficiency. IV Venofer. Also has vitamin B12 deficiency. CT chest reviewed. Status post colonoscopy 05/17/2024: A partially obstructing large circumferential fungating friable infiltrative malignancy this was observed in the distal ascending. Few diverticula in left colon. Not actively bleeding. Biopsies were obtained. Oncology consultation for metastatic workup. He may need surgical right hemicolectomy due to potentially obstructing in near future DVT prophylaxis SCDs Code status full code Subjective Date/time seen: 05/17/24 12:34 Interval history: Patient underwent colonoscopy today. Found to have a large ascending colon mass. Partially obstructing. Patient wanted to go home. Awaiting oncology evaluation. Review of Systems Review of Systems: All systems reviewed & are unremarkable except as noted in HPI and below Exam Narrative: GENERAL: Well-appearing, well-nourished, and in no acute distress. HEAD: Normocephalic, atraumatic. EYES: PERRLA and EOMI. ENT: Nares clear, no rhinorrhea or epistaxis. Mucous membranes moist. NECK: Supple. CHEST: Clear to auscultation. No respiratory distress. HEART: Regular rate and rhythm. No murmur heard. Normal peripheral pulses. ABDOMEN: Soft, nontender nondistended, normal active bowel sounds. EXTREMITIES: Normal range of motion. No edema. SKIN: Warm, dry, no rash. NEURO: No focal deficits. Alert and oriented x3. PSYCH: Normal mood and affect. Objective Data Vital Signs Vital Signs: Vital Signs - 24 hr 05/16/24 14:00 05/16/24 20:45 05/17/24 06:00 Temperature 98.3 F 98.1 F 97.7 F Pulse Rate 70 69 71 Respiratory Rate 18 18 20 Blood Pressure 173/78 H 171/83 H 137/64 Pulse Oximetry 96 100 95 Oxygen Delivery 05/17/24 08:00 05/17/24 11:22 05/17/24 12:10 Temperature 97.8 F Pulse Rate 66 72 Respiratory Rate 19 16 Blood Pressure 147/70 H 135/64 Pulse Oximetry 99 96 Oxygen Delivery Room Air Room Air Room Air 05/17/24 12:20 Temperature Pulse Rate 65 Respiratory Rate 17 Blood Pressure 139/63 Pulse Oximetry 97 Oxygen Delivery Room Air Intake/Output Intake/Output: Intake & Output 05/14/24 05/15/24 05/16/24 05/17/24 23:59 23:59 23:59 23:59 Intake Total 2732.0 1783.8 350 Output Total 1 Balance 2731.0 1783.8 350 Meds/Results Medications: Active Med
[2024-05-17] MEDS: ATORVASTATIN 40 MG TABLET BY MOUTH (12:57)
--- NOTE | 2024-05-17 12:59 | PC.NURSE ---
Pt. back from GI lab at 12:45.
[2024-05-17] MEDS: CYANOCOBALAMIN INJ 1,000 MCG/ML VIAL 1000 MCG IM (15:34)
--- NOTE | 2024-05-17 18:52 | PDONCCN ---
HPI - Date of Consult Date/Time: 05/17/24 18:52 Requesting Physician: Toney Santacruz MD Primary Care Provider: UNKNOWN,DOCTOR - Consult Narrative Reason for consult: Right colon mass with partial obstruction, multiple liver masses Narrative: Eamon Wade is a 78 year old male came into the emergency department with complain of lower abdominal pain started night before admission along with tiredness and fatigue. He denies any diarrhea and constipation. Denies any melena hematochezia. He was having some nausea. CT scan showed focal wall thickening of ascending colon along with liver masses consistent with metastatic disease and liver biopsy was recommended. CT chest showed liver masses. Labs showed hemoglobin of 6.9. He received 1 unit of packed red blood cell. He is feeling slightly better. Review of Systems - Review of Systems All systems reviewed & are unremarkable except as noted in HPI and bel - Neurologic Reports hearing normal, Denies headache(s), Denies weakness PMFSH Medical History: Medical History (Last Reviewed 05/15/24 @ 12:04 by Kenneth Gerardo MD) Colonic mass Metastatic disease Microcytic anemia Nausea - Social History Social History: Social History (Last Reviewed 05/15/24 @ 12:04 by Kenneth Gerardo MD) Alcohol Use: Alcohol intake: current Drinks per week: 25 Substance Use: Substance use: never Substance use type: does not use Others: Spiritual care concerns: No Smoking Status: Smokeless tobacco user: chewing tobacco Second hand tobacco smoke exposure: No Social Determinants of Health: Do You Feel Safe in your Home?: Yes Has the Lack of Transportation Kept You From Medical Appointments or From Getting Medications?: Yes Within the Past 12 Months, Were You Worried Whether Your Food Would Run Out Before You Got Money to Buy More?: Never True What is Your Housing Situation Today?: I Do Not Have Housing Are You Worried That in the Next 2 Months, You May Not Have Your Own Housing to Live In?: No Do You Have Trouble Paying Your Heating Or Electricity Bill?: No Do You Have Trouble Paying For Medicines?: No Are You Currently Unemployed and Looking for Work?: No Highest Level of Education Completed: Associate Degree Do You Have Trouble With Childcare or the Care of a Family Member?: No Exam - Vital Signs Vital Signs - 24 hr 05/16/24 20:45 05/17/24 06:00 05/17/24 08:00 Temperature 36.7 C 36.5 C Pulse Rate 69 71 Respiratory Rate 18 20 Blood Pressure 171/83 H 137/64 Pulse Oximetry 100 95 Oxygen Delivery Room Air 05/17/24 11:22 05/17/24 12:10 05/17/24 12:20 Temperature 36.6 C Pulse Rate 66 72 65 Respiratory Rate 19 16 17 Blood Pressure 147/70 H 135/64 139/63 Pulse Oximetry 99 96 97 Oxygen Delivery Room Air Room Air Room Air 05/17/24 12:30 05/17/24 12:56 Temperature 36.3 C L Pulse Rate 70 71 Respiratory Rate 25 H 16 Blood Pressure 137/81 159/88 H Pulse Oximetry 99 98 Oxygen Delivery Room Air - Exam HEENT: EOMI, PERRLA Neck: supple Lungs: clear to auscultation, normal air movement Heart: no murmurs, gallops, or rubs, regular rhythm, regular rate Abdomen: abdomen soft, non-distended, normal bowel sounds Extremities: normal pulses Integumentary: no abnormalities Neurological: normal speech Psychological: mental status NL, mood NL - Lab Results Laboratory Last Values WBC 6.2 K/mm3 (4.5-10.0) 05/17/24 05:05 RBC 4.01 M/mm3 (4.6-6.20) L 05/17/24 05:05 Hgb 8.4 g/dL (14.0-18.0) L 05/17/24 05:05 Hct 29.2 % (42.0-52.0) L 05/17/24 05:05 MCV 72.8 fl (80-100) L 05/17/24 05:05 MCH 20.9 pg (26-34) L 05/17/24 05:05 MCHC 28.8 g/dl (32-36) L 05/17/24 05:05 RDW 19.5 % (11.5-14.5) H 05/17/24 05:05 Plt Count 340 k/mm3 (150-375) 05/17/24 05:05 MPV 9.2 fl (7.4-10.4) 05/17/24 05:05 Immature Gran % (Auto) 0
[2024-05-17] MEDS: IRON SUCROSE COMPLEX 400 MG, IRON SUCROSE COMPLEX 100 MG in SODIUM CHLORIDE 0.9% IV 250 ML 78.57 MG IVPB (21:46)
[2024-05-18 05:05] VITALS: BP 153/76; PULSE 67; RESP 20; TEMP 36.5; O2SAT 95
[2024-05-18 07:17] LABS: Basophils Percent Auto 0.7 % (0.2-1.2); Eosinophils Absolute Auto 0.2 K/mm3 (0-0.3); Eosinophils Percent Auto 3.9 % (0-4.4); Hematocrit 29.3 % (42.0-52.0); Hemoglobin 8.1 g/dL (14.0-18.0); Immature Granulocyte Absolute 0.01 K/mm3 (0.00-0.031); Immature Granulocyte Percent A 0.2 % (0-0.5); Lymphocytes Absolute Auto 0.96 K/mm3 (0.9-3.2); Lymphocytes Percent Auto 15.8 % (18.3-44.2); Mean Corpuscular HGB Conc 27.6 g/dl (32-36); Mean Corpuscular Hemoglobin 20.6 pg (26-34); Mean Corpuscular Volume 74.6 fl (80-100); Mean Platelet Volume 9.3 fl (7.4-10.4); Monocytes Absolute Auto 1.1 K/mm3 (0.1-0.6); Monocytes Percent Auto 18.2 % (2.6-8.5); Neutrophils Absolute Auto 3.7 K/mm3 (1.3-6.7); Neutrophils Percent Auto 61.2 % (45.5-73.1); Platelet Count Result 319 k/mm3 (150-375); Red Blood Count 3.93 M/mm3 (4.6-6.20); Red Cell Distribution Width 19.8 % (11.5-14.5); White Blood Count 6.1 K/mm3 (4.5-10.0)
[2024-05-18 07:35] LABS: Anisocytosis 1+; Hypochromasia 1+; Microcytosis 1+ (NORMAL); Platelet Estimate Adequate (Adequate); Schistocytes None Seen
[2024-05-18 07:45] LABS: Alanine Aminotransferase 12 U/L (6-50); Albumin Level 3.4 g/dL (3.5-5.1); Alkaline Phosphatase 74 U/L (38-126); Anion Gap 9 mmol/L (4-12); Aspartate Amino Transferase 25 U/L (17-59); Bilirubin,Total 0.5 mg/dL (0.2-1.3); Blood Urea Nitrogen 12 mg/dL (9-20); Calcium 8.5 mg/dL (8.4-10.2); Carbon Dioxide 27 mmol/L (22-30); Chloride 100 mmol/L (98-107); Estimated CRCL calculation 60 ml/min; Estimated Glomerular Filt Rate > 60; Glucose 95 mg/dL (65-110); Magnesium 2.1 mg/dL (1.6-2.3); Potassium 3.6 mmol/L (3.4-5.0); Sodium 136 mmol/L (137-145)
[2024-05-18] MEDS: CYANOCOBALAMIN INJ 1,000 MCG/ML VIAL 1000 MCG IM (07:55)
[2024-05-18] MEDS: ATORVASTATIN 40 MG TABLET BY MOUTH (07:56)
--- NOTE | 2024-05-18 10:43 | WPDPN ---
Progress Note: A&P Assessment and Plan (1) Mass of hepatic flexure of colon: Code(s): K63.89 - Other specified diseases of intestine Status: Acute Assessment and Plan: Patient has malignant appearing mass in the distal ascending colon near the hepatic flexure of the colon. Biopsy results are still pending but it is partially obstructive and will to have it resected to avoid a complete obstruction over time. ultrasound-guided liver biopsy of the liver lesion was done today. Path is pending on that as well. We will keep him on clear liquids for now with some Ensure. Given some MiraLax each day and hopefully this can pretty much perform a bowel prep without need to have a full volume mechanical bowel prep in 2 days. Plan on surgery on Friday this week. Plan will be for hand assisted laparoscopic right hemicolectomy. Subjective Date/time seen: 05/18/24 10:43 Interval history: Patient is doing well. He got his ultrasound-guided liver biopsy today. Path pending. Past still pending on the biopsy the colon mass but it certainly looks malignant on endoscopy. He is having some issues with early satiety after eating. I do think he has a partial colonic obstruction. I think if he is discharged home he will be pretty symptomatic if he eats solid food and so I have scheduled the surgery be done on Friday later this week. Exam GI: Other: Abdomen is soft minimally distended. Nontender to palpation. No masses . Benign. Objective Data Vital Signs Vital Signs: Vital Signs - 24 hr 05/17/24 11:22 05/17/24 12:10 05/17/24 12:20 Temperature 36.6 C Pulse Rate 66 72 65 Respiratory Rate 19 16 17 Blood Pressure 147/70 H 135/64 139/63 Pulse Oximetry 99 96 97 Oxygen Delivery Room Air Room Air Room Air 05/17/24 12:30 05/17/24 12:56 05/17/24 21:00 Temperature 36.3 C L 37.3 C Pulse Rate 70 71 81 Respiratory Rate 25 H 16 20 Blood Pressure 137/81 159/88 H 171/75 H Pulse Oximetry 99 98 99 Oxygen Delivery Room Air 05/17/24 20:00 05/18/24 05:05 05/18/24 08:00 Temperature 36.5 C Pulse Rate 67 Respiratory Rate 20 Blood Pressure 153/76 H Pulse Oximetry 95 Oxygen Delivery Room Air Room Air Intake/Output Intake/Output: Intake & Output 05/15/24 05/16/24 05/17/24 05/18/24 23:59 23:59 23:59 23:59 Intake Total 2732.0 1783.8 1380 400 Output Total 1 Balance 2731.0 1783.8 1380 400 Meds/Results Medications: Active Medications Generic Name Dose Route Start Last Admin Trade Name Freq PRN Reason Stop Dose Admin Atorvastatin Calcium 40 mg 05/16/24 09:00 05/18/24 07:56 Atorvastatin 40 Mg Tablet BY MOUTH 40 mg DAILY DANDRE Administration Cyanocobalamin 1,000 mcg 05/16/24 09:00 05/18/24 07:55 Cyanocobalamin Inj 1,000 Mcg/Ml Vial IM 05/23/24 08:59 1,000 mcg DAILY DANDRE Administration Morphine Sulfate 2 mg 05/15/24 07:01 Morphine Sulfate (*Crx) 2 Mg/Ml Inj IV PUSH Q2H PRN Pain Rated 7-10 Ondansetron HCl 4 mg 05/15/24 07:01 Ondansetron Inj 4 Mg/2 Ml Vial IV PUSH Q4H PRN Nausea Radiology Results: ITS Impressions Abdomen/Pelvis CT 05/15/24 06:13 IMPRESSION: 1. Focal wall thickening of the ascending colon, consistent with primary malignancy with partial bowel obstruction. 2. Liver masses, consistent with metastatic disease. Ultrasound-guided core needle biopsy of a liver mass is recommended. Chest CT 05/16/24 09:47 IMPRESSION: 1. Liver masses, consistent with metastatic disease. Ultrasound-guided core needle biopsy is recommended. Labs Labs: Laboratory Results - last 24 hr 05/18/24 06:42 WBC 6.1 RBC 3.93 L Hgb 8.1 L Hct 29.3 L MCV 74.6 L MCH 20.6 L MCHC 27.6 L RDW 19.8 H Plt Count 319 MPV 9.3 Immature Gran % (Auto) 0.2 Neut % (Auto) 61.2 Lymph % (Auto) 15.8 L [place] % (Auto) 18.2 H Eos % (Auto) 3.9 Baso % (Auto) 0.7 Lymph # (Auto) 0.96 [place] # (Auto) 1.1 H Eos # (Auto)
[2024-05-18] MEDS: polyethylene glycoL 3350 17 GM POWD.PACK PO (12:47)
--- NOTE | 2024-05-18 13:38 | PM.IMPN ---
Progress Note: A&P Assessment and Plan (1) Partial small bowel obstruction: Code(s): K56.600 - Partial intestinal obstruction, unspecified as to cause Status: Acute (2) Intestinal mass: Code(s): K63.89 - Other specified diseases of intestine Status: Acute (3) Abdominal pain: Code(s): R10.9 - Unspecified abdominal pain Status: Acute (4) Anemia: Code(s): D64.9 - Anemia, unspecified Status: Acute Plan This is a 78-year-old male presents to the ED with complaint of lower abdominal pain which started last night constant progressive 3 worsening worse with ambulation and improved with rest. Associated nausea and vomiting. On ED evaluation vitals were stable. Laboratory evaluation showed normal WBC count at 7.6 hemoglobin 7.8 no prior levels available. Anemia is microcytic hypochromic. Renal function and came panel was unremarkable. LFTs were normal urinalysis was negative lipase was normal. CT abdomen pelvis was performed. CT abdomen pelvis reveals focal wall thickening of the descending colon consistent with primary malignancy with partial bowel obstruction. There are also numerous liver masses consistent with metastatic disease. Ultrasound-guided core needle biopsy of the liver masses recommended. GI and General surgery has been consulted. Plan for colonoscopy tomorrow. No active vomiting and hence no NG tube splint placed. Also have ordered IR perform ultrasound-guided biopsy of the liver masses which has been canceled by the GI doctor.. CEA less came back normal. Anemia likely related to this mass. Iron panel suggestive of iron deficiency. IV Venofer. Also has vitamin B12 deficiency. CT chest reviewed. He also received biopsy of liver masses on 05/18/24. Status post colonoscopy 05/17/2024: A partially obstructing large circumferential fungating friable infiltrative malignancy this was observed in the distal ascending. Few diverticula in left colon. Not actively bleeding. Biopsies were obtained. Oncology consultation for metastatic workup. He is planned for surgical right hemicolectomy due to potentially obstructing in near future on Friday. Iron deficiency Vitamin B12 deficiency DVT prophylaxis SCDs Code status full code Subjective Date/time seen: 05/18/24 13:38 Interval history: No overnight events. Patient underwent liver biopsy today. No new complaints. Oncology note reviewed. He is planned for right colectomy on Friday Review of Systems Review of Systems: All systems reviewed & are unremarkable except as noted in HPI and below Exam Narrative: GENERAL: Well-appearing, well-nourished, and in no acute distress. HEAD: Normocephalic, atraumatic. EYES: PERRLA and EOMI. ENT: Nares clear, no rhinorrhea or epistaxis. Mucous membranes moist. NECK: Supple. CHEST: Clear to auscultation. No respiratory distress. HEART: Regular rate and rhythm. No murmur heard. Normal peripheral pulses. ABDOMEN: Soft, nontender nondistended, normal active bowel sounds. EXTREMITIES: Normal range of motion. No edema. SKIN: Warm, dry, no rash. NEURO: No focal deficits. Alert and oriented x3. PSYCH: Normal mood and affect. Objective Data Vital Signs Vital Signs: Vital Signs - 24 hr 05/17/24 21:00 05/17/24 20:00 05/18/24 05:05 Temperature 99.1 F 97.7 F Pulse Rate 81 67 Respiratory Rate 20 20 Blood Pressure 171/75 H 153/76 H Pulse Oximetry 99 95 Oxygen Delivery Room Air 05/18/24 08:00 Temperature Pulse Rate Respiratory Rate Blood Pressure Pulse Oximetry Oxygen Delivery Room Air Intake/Output Intake/Output: Intake & Output 05/15/24 05/16/24 05/17/24 05/18/24 23:59 23:59 23:59 23:59 Intake Total 2732.0 1783.8 1380 640 Output Total 1 Balance 2731.0 1783.8 1380 640 Meds/Results Medications: Active Medications Generic Name Dose Route Start Last Admin Trade Name Freq PRN Reason Stop Dose Admin Atorvastatin Calcium 40 mg
[2024-05-18 14:00] VITALS: BP 164/70; PULSE 83; RESP 14; TEMP 36.7; O2SAT 97
--- NOTE | 2024-05-18 14:01 | WPDANESPN ---
Anes - Prog Note Post-Op Date/Time: 05/18/24 14:01 Vital Signs: Last Vital Signs Temp 36.5 C 05/18/24 05:05 Pulse 67 05/18/24 05:05 Resp 20 05/18/24 05:05 BP 153/76 H 05/18/24 05:05 Pulse Ox 95 05/18/24 05:05 O2 Del Method Room Air 05/18/24 08:00 Pain Score (VAS): 0 I/O: Intake & Output 05/17/24 05/18/24 05/18/24 23:59 07:59 15:59 Intake Total 790 400 240 Balance 790 400 240 Laboratory Tests 05/18/24 06:42 05/18/24 06:42 05/18/24 06:42 WBC 6.1 RBC 3.93 L Hgb 8.1 L Hct 29.3 L MCV 74.6 L MCH 20.6 L MCHC 27.6 L RDW 19.8 H Plt Count 319 MPV 9.3 Immature Gran % (Auto) 0.2 Neut % (Auto) 61.2 Lymph % (Auto) 15.8 L [place] % (Auto) 18.2 H Eos % (Auto) 3.9 Baso % (Auto) 0.7 Lymph # (Auto) 0.96 [place] # (Auto) 1.1 H Eos # (Auto) 0.2 Baso # (Auto) 0.0 Abs Immat Gran (auto) 0.01 Absolute Neuts (auto) 3.7 Absolute Nucleated RBC 0.000 Nucleated RBC % 0.0 Platelet Estimate Adequate Hypochromasia 1+ Anisocytosis 1+ Microcytosis 1+ Schistocytes None seen Sodium 136 L Potassium 3.6 Chloride 100 Carbon Dioxide 27 Anion Gap 9 BUN 12 D Creatinine 0.90 Estim Creat Clear Calc 60 Estimated GFR > 60 Glucose 95 Calcium 8.5 Magnesium 2.1 Total Bilirubin 0.5 AST 25 ALT 12 Alkaline Phosphatase 74 Total Protein 6.0 L Albumin 3.4 L Patient Feedback: Patient satisfied with anesthetic care.
--- NOTE | 2024-05-18 17:22 | WPDGIPROGNO ---
Progress Note: A&P Assessment and Plan (1) Colon cancer: Code(s): C18.9 - Malignant neoplasm of colon, unspecified Status: Acute Assessment and Plan: primary source with liver mets surgery is planning rt hemicolectomy to prevent obstructive symptom oncology on board (2) Microcytic anemia: Code(s): D50.9 - Iron deficiency anemia, unspecified Status: Acute Assessment and Plan: from malignancy no overt gib (3) Metastatic disease: Code(s): C79.9 - Secondary malignant neoplasm of unspecified site Status: Acute (4) Abdominal pain: Code(s): R10.9 - Unspecified abdominal pain Status: Acute Assessment and Plan: improved (5) Nausea: Code(s): R11.0 - Nausea Status: Acute Assessment and Plan: tolerating liquid diet Subjective Date/time seen: 05/18/24 17:22 Interval history: colonoscopy with large lesion in ascending colon, today had liver biopsy tolerating liquid diet Review of Systems Review of Systems: All systems reviewed & are unremarkable except as noted in HPI and below Exam Const: General: comfortable and no acute distress HENMT: Face/Nose/Sinus: Normal nares present Eyes: General: appearance normal, both eyes and all related structures Neck: Neck: supple Resp: Auscultation: clear to auscultation bilaterally Cardio: Rate: regular rate Rhythm: regular rhythm GI: Inspection: non-distended GI Palp: Yes Soft to palpation and No Tenderness to palpation present (GI) Auscultation: normal bowel sounds Other: recent liver bx Skin: General skin exam: normal color Neuro: Speech: normal speech Motor exam (neuro): 5/5 motor strength present throughout Extrem: General: normal to inspection Psych: Mental Status: mental status grossly normal Objective Data Vital Signs Vital Signs: Vital Signs - 24 hr 05/17/24 21:00 05/17/24 20:00 05/18/24 05:05 Temperature 99.1 F 97.7 F Pulse Rate 81 67 Respiratory Rate 20 20 Blood Pressure 171/75 H 153/76 H Pulse Oximetry 99 95 Oxygen Delivery Room Air 05/18/24 08:00 05/18/24 14:00 Temperature 98.0 F Pulse Rate 83 Respiratory Rate 14 Blood Pressure 164/70 H Pulse Oximetry 97 Oxygen Delivery Room Air Intake/Output Intake/Output: Intake & Output 05/15/24 05/16/24 05/17/24 08/27/24 23:59 23:59 23:59 23:59 Intake Total 2732.0 1783.8 1380 640 Output Total 1 Balance 2731.0 1783.8 1380 640 Meds/Results Medications: Active Medications Generic Name Dose Route Start Last Admin Trade Name Freq PRN Reason Stop Dose Admin Atorvastatin Calcium 40 mg 05/16/24 09:00 05/18/24 07:56 Atorvastatin 40 Mg Tablet BY MOUTH 40 mg DAILY [facility] Administration Cyanocobalamin 1,000 mcg 05/16/24 09:00 05/18/24 07:55 Cyanocobalamin Inj 1,000 Mcg/Ml Vial IM 05/23/24 08:59 1,000 mcg DAILY [facility] Administration Morphine Sulfate 2 mg 05/15/24 07:01 Morphine Sulfate (*Crx) 2 Mg/Ml Inj IV PUSH Q2H PRN Pain Rated 7-10 Ondansetron HCl 4 mg 05/15/24 07:01 Ondansetron Inj 4 Mg/2 Ml Vial IV PUSH Q4H PRN Nausea Polyethylene Glycol 17 gm 05/19/24 09:00 Polyethylene Glycol 3350 17 Gm Powd.Pack PO QAM [facility] Radiology Results: ITS Impressions Abdomen/Pelvis CT 05/15/24 06:13 IMPRESSION: 1. Focal wall thickening of the ascending colon, consistent with primary malignancy with partial bowel obstruction. 2. Liver masses, consistent with metastatic disease. Ultrasound-guided core needle biopsy of a liver mass is recommended. Chest CT 05/16/24 09:47 IMPRESSION: 1. Liver masses, consistent with metastatic disease. Ultrasound-guided core needle biopsy is recommended. Liver Biopsy Ultrasound 05/18/24 13:28 IMPRESSION: 1. Successful Ultrasound-guided biopsy of a 1.5 cm subtly hypoechoic nodule at the inferior right hepatic lobe. Labs Labs: Laboratory Results - last 24 hr
[2024-05-18 20:53] VITALS: BP 166/67; PULSE 74; RESP 20; TEMP 37.2; O2SAT 99
[2024-05-19 05:24] VITALS: BP 136/71; PULSE 80; RESP 18; TEMP 37.4; O2SAT 94
[2024-05-19 06:55] LABS: Basophils Percent Auto 0.6 % (0.2-1.2); Eosinophils Absolute Auto 0.2 K/mm3 (0-0.3); Eosinophils Percent Auto 3.4 % (0-4.4); Hematocrit 29.7 % (42.0-52.0); Hemoglobin 8.4 g/dL (14.0-18.0); Immature Granulocyte Absolute 0.01 K/mm3 (0.00-0.031); Immature Granulocyte Percent A 0.1 % (0-0.5); Lymphocytes Percent Auto 14.7 % (18.3-44.2); Mean Corpuscular HGB Conc 28.3 g/dl (32-36); Mean Corpuscular Hemoglobin 21.4 pg (26-34); Mean Corpuscular Volume 75.8 fl (80-100); Mean Platelet Volume 9.6 fl (7.4-10.4); Monocytes Absolute Auto 1.3 K/mm3 (0.1-0.6); Monocytes Percent Auto 18.6 % (2.6-8.5); Neutrophils Absolute Auto 4.3 K/mm3 (1.3-6.7); Neutrophils Percent Auto 62.6 % (45.5-73.1); Platelet Count Result 331 k/mm3 (150-375); Red Blood Count 3.92 M/mm3 (4.6-6.20); Red Cell Distribution Width 20.8 % (11.5-14.5); White Blood Count 6.8 K/mm3 (4.5-10.0)
[2024-05-19 07:06] LABS: Alanine Aminotransferase 11 U/L (6-50); Albumin Level 3.4 g/dL (3.5-5.1); Alkaline Phosphatase 78 U/L (38-126); Anion Gap 6 mmol/L (4-12); Aspartate Amino Transferase 24 U/L (17-59); Bilirubin,Total 0.5 mg/dL (0.2-1.3); Blood Urea Nitrogen 11 mg/dL (9-20); Calcium 8.7 mg/dL (8.4-10.2); Carbon Dioxide 29 mmol/L (22-30); Chloride 101 mmol/L (98-107); Estimated CRCL calculation 67 ml/min; Estimated Glomerular Filt Rate > 60; Glucose 91 mg/dL (65-110); Magnesium 1.9 mg/dL (1.6-2.3); Potassium 3.7 mmol/L (3.4-5.0); Sodium 136 mmol/L (137-145)
[2024-05-19] MEDS: polyethylene glycoL 3350 17 GM POWD.PACK PO (07:37)
[2024-05-19] MEDS: ATORVASTATIN 40 MG TABLET BY MOUTH (07:37)
[2024-05-19] MEDS: CYANOCOBALAMIN INJ 1,000 MCG/ML VIAL 1000 MCG IM (07:37)
[2024-05-19 07:58] LABS: Hypochromasia 2+; Platelet Estimate Adequate (Adequate)
[2024-05-19 07:59] LABS: Anisocytosis 1+; Microcytosis 1+ (NORMAL); Schistocytes None Seen
--- NOTE | 2024-05-19 13:56 | P.PNIM_ITS ---
Progress Note: A&P Assessment and Plan (1) Colon cancer: Code(s): C18.9 - Malignant neoplasm of colon, unspecified Status: Acute Assessment and Plan: * CT abdomen pelvis reveals focal wall thickening of the descending colon consistent with primary malignancy with partial bowel obstruction * Surgery consulted * GI consulted * colonoscopy performed 05/18/2024 A partially obstructing large circumferential fungating friable infiltrative malignancy this was observed in the distal ascending * Liquid Diet * Miralax PRN * Pain control * RT hemicolectomy 05/21 (2) Mass of hepatic flexure of colon: Code(s): K63.89 - Other specified diseases of intestine Status: Acute Assessment and Plan: * See Above (3) Liver mass: Code(s): R16.0 - Hepatomegaly, not elsewhere classified Status: Acute Assessment and Plan: * Liver biopsy pending * Mass noted consistent with metastatic * Oncology consulted (4) Microcytic anemia: Code(s): D50.9 - Iron deficiency anemia, unspecified Status: Acute Assessment and Plan: * Likely secondary to current colon and liver mass * Iron panel showing iron deficiency anemia * Monitor H&H * transfuse PRBC if Hgb <7.0 * Start Iron supplements Plan Code status: Full code per patient DVT prophylaxis: SCDs Stress ulcer prophylaxis: Protonix 40 daily PT/OT notes: Ambulatory Disposition: Patient continues admission to the medical unit planned for gallo fraga on Monday 05/21. Patient is ambulatory and plan is to return home when medically stable. Time Spent With Patient Time with patient: 15 - 25 minutes Subjective Date/time seen: 05/19/24 13:56 Interval history: Admission: Medical Chart patient 78-year-old gentleman who presents emergency department with chief complaint of lower abdominal pain. Patient reports that pain started around 10 30 last night and reports that has been increasing the patient reports some lower quadrants reports worse whenever he ambulates and improved with rest. The patient reports no trauma denies fever denies vomiting denies diarrhea patient reports that the pain is tolerable whenever he is laying on the stretcher. ED evaluation revealed partial small-bowel obstruction along with ascending colon mass liver masses. He is admitted in the setting 05/19/2024: Assumed Care Patient up in chair in no acute distress with no complaints. Denies any ABD pain, continues on liquid diet and having BM, plan for right hemicolectomy on Friday05/21/2024. Review of Systems Review of Systems: All systems reviewed & are unremarkable except as noted in HPI and below Exam Narrative: Physical Exam: * GENERAL: Alert and oriented x 3. No acute distress. * EYES: EOMI. No scleral icterus. PERRLA. * HEENT: Moist mucous membranes. * LUNGS: Clear to auscultation bilaterally. No accessory muscle use. * CARDIOVASCULAR: Regular rate and rhythm. No murmur. No JVD. S1-S2 * ABDOMEN: Soft, non tenderness and non-distended. No palpable masses. * EXTR
--- NOTE | 2024-05-19 13:56 | PM.IMPN ---
Progress Note: A&P Assessment and Plan (1) Colon cancer: Code(s): C18.9 - Malignant neoplasm of colon, unspecified Status: Acute Assessment and Plan: CT abdomen pelvis reveals focal wall thickening of the descending colon consistent with primary malignancy with partial bowel obstruction Surgery consulted GI consulted colonoscopy performed 05/18/2024 A partially obstructing large circumferential fungating friable infiltrative malignancy this was observed in the distal ascending Liquid Diet Miralax PRN Pain control RT hemicolectomy 05/21 (2) Mass of hepatic flexure of colon: Code(s): K63.89 - Other specified diseases of intestine Status: Acute Assessment and Plan: See Above (3) Liver mass: Code(s): R16.0 - Hepatomegaly, not elsewhere classified Status: Acute Assessment and Plan: Liver biopsy pending Mass noted consistent with metastatic Oncology consulted (4) Microcytic anemia: Code(s): D50.9 - Iron deficiency anemia, unspecified Status: Acute Assessment and Plan: Likely secondary to current colon and liver mass Iron panel showing iron deficiency anemia Monitor H&H transfuse PRBC if Hgb <7.0 Start Iron supplements Plan Code status: Full code per patient DVT prophylaxis: SCDs Stress ulcer prophylaxis: Protonix 40 daily PT/OT notes: Ambulatory Disposition: Patient continues admission to the medical unit planned for surgery on Monday 05/21. Patient is ambulatory and plan is to return home when medically stable. Time Spent With Patient Time with patient: 15 - 25 minutes Subjective Date/time seen: 05/19/24 13:56 Interval history: Admission: Medical Chart patient 78-year-old gentleman who presents emergency department with chief complaint of lower abdominal pain. Patient reports that pain started around 10 30 last night and reports that has been increasing the patient reports some lower quadrants reports worse whenever he ambulates and improved with rest. The patient reports no trauma denies fever denies vomiting denies diarrhea patient reports that the pain is tolerable whenever he is laying on the stretcher. ED evaluation revealed partial small-bowel obstruction along with ascending colon mass liver masses. He is admitted in the setting 05/19/2024: Assumed Care Patient up in chair in no acute distress with no complaints. Denies any ABD pain, continues on liquid diet and having BM, plan for right hemicolectomy on Friday05/21/2024. Review of Systems Review of Systems: All systems reviewed & are unremarkable except as noted in HPI and below Exam Narrative: Physical Exam: GENERAL: Alert and oriented x 3. No acute distress. EYES: EOMI. No scleral icterus. PERRLA. HEENT: Moist mucous membranes. LUNGS: Clear to auscultation bilaterally. No accessory muscle use. CARDIOVASCULAR: Regular rate and rhythm. No murmur. No JVD. S1-S2 ABDOMEN: Soft, non tenderness and non-distended. No palpable masses. EXTREMITIES: No edema. Non-tender SKIN: No rashes or lesions. Skin warm, dry. NEUROLOGIC: No focal neurological deficits. CN II-XII grossly intact PSYCHIATRIC: Appropriate mood and affect. Good judgement and insight. No visual or auditory hallucinations. No suicidal or homicidal ideation. Objective Data Vital Signs Vital Signs: Vital Signs - 24 hr 05/18/24 14:00 05/18/24 20:53 05/19/24 05:24 Temperature 98.0 F 99 F 99.4 F Pulse Rate 83 74 80 Respiratory Rate 14 20 18 Blood Pressure 164/70 H 166/67 H 136/71 Pulse Oximetry 97 99 94 Oxygen Delivery 05/19/24 08:00 Temperature Pulse Rate Respiratory Rate Blood Pressure Pulse Oximetry Oxygen Delivery Room Air Intake/Output Intake/Output: Intake & Output 05/16/24 05/17/24 05/18/24 05/19/24 23:59 23:59 23:59 23:59 Intake Total 1783.8 1380 1380 620 Balance 1783.8 1380 1380 620 Meds/Results [facility]
[2024-05-19 14:00] VITALS: BP 156/68; PULSE 70; RESP 12; TEMP 37; O2SAT 99
--- NOTE | 2024-05-19 16:04 | WPDPN ---
Progress Note: A&P Assessment and Plan (1) Colon cancer: Code(s): C18.9 - Malignant neoplasm of colon, unspecified Status: Acute Assessment and Plan: Pathology on the right colon mass and liver lesions shows invasive adenocarcinoma with metastatic disease to the liver. He will need to have a right hemicolectomy as the mass was eventually obstruct him. On Tuesday May 21, 2024 he is scheduled undergo a hand assisted laparoscopic right hemicolectomy. Continue clear liquids and Ensure for now. We will do a gentle bowel prep tomorrow with mechanical and antibiotic prep. (2) Metastasis to liver: Code(s): C78.7 - Secondary malignant neoplasm of liver and intrahepatic bile duct Status: Acute Assessment and Plan: Ultrasound-guided core needle biopsy of the liver lesion shows metastatic disease consistent with colon primary. He will need to be evaluated by oncology and likely need adjuvant chemotherapy. Subjective Date/time seen: 05/19/24 16:04 Interval history: Patient is clinically stable. He had a bowel movement yesterday. He is tolerating a clear liquid diet with some Ensure. The pathology results are back on his colonoscopy biopsy and this shows invasive adenocarcinoma in the right ascending colon mass. The needle core biopsies which were done ultrasound-guided yesterday in Radiology the liver lesion showed metastatic adenocarcinoma from the colon primary. He is scheduled for a hand assisted laparoscopic right hemicolectomy on Tuesday May 21, 2024. He will eventually obstruct if the right colon is not resected. Postoperatively he can evaluated by Oncology for adjuvant chemotherapy. Exam GI: GI Palp: Yes Soft to palpation, No Firmness to palpation present (GI), No Tenderness to palpation present (GI), No Guarding due to palpation present (GI) and No Hernia present Objective Data Vital Signs Vital Signs: Vital Signs - 24 hr 05/18/24 20:53 05/19/24 05:24 05/19/24 08:00 Temperature 37.2 C 37.4 C Pulse Rate 74 80 Respiratory Rate 20 18 Blood Pressure 166/67 H 136/71 Pulse Oximetry 99 94 Oxygen Delivery Room Air 05/19/24 14:00 Temperature 37.0 C Pulse Rate 70 Respiratory Rate 12 Blood Pressure 156/68 H Pulse Oximetry 99 Oxygen Delivery Intake/Output Intake/Output: Intake & Output 05/16/24 05/17/24 05/18/24 05/19/24 23:59 23:59 23:59 23:59 Intake Total 1783.8 1380 1380 1100 Balance 1783.8 1380 1380 1100 Meds/Results Medications: Active Medications Generic Name Dose Route Start Last Admin Trade Name Freq PRN Reason Stop Dose Admin Acetaminophen 650 mg 05/19/24 14:06 Acetaminophen 325 Mg Tablet PO Q4H PRN Mild Pain (1-3) or Fever Atorvastatin Calcium 40 mg 05/16/24 09:00 05/19/24 07:37 Atorvastatin 40 Mg Tablet BY MOUTH 40 mg DAILY [facility]AND[facility] Administration Cyanocobalamin 1,000 mcg 05/16/24 09:00 05/19/24 07:37 Cyanocobalamin Inj 1,000 Mcg/Ml Vial IM 05/23/24 08:59 1,000 mcg DAILY [facility] Administration Morphine Sulfate 2 mg 05/15/24 07:01 Morphine Sulfate (*Crx) 2 Mg/Ml Inj IV PUSH Q2H PRN Pain Rated 7-10 Ondansetron HCl 4 mg 05/15/24 07:01 Ondansetron Inj 4 Mg/2 Ml Vial IV PUSH Q4H PRN Nausea Ondansetron HCl 4 mg 05/19/24 14:06 Ondansetron Inj 4 Mg/2 Ml Vial IV PUSH Q6H PRN Nausea And Vomiting Pantoprazole Sodium 40 mg 05/20/24 09:00 Pantoprazole Sodium Iv 40 Mg Vial IV PUSH QAM DANDRE Polyethylene Glycol 17 gm 05/19/24 09:00 05/19/24 07:37 Polyethylene Glycol 3350 17 Gm Powd.Pack PO 17 gm QAM DANDRE Administration Radiology Results: ITS Impressions Abdomen/Pelvis CT 05/15/24 06:13 IMPRESSION: 1. Focal wall thickening of the ascending colon, consistent with primary malignancy with partial bowel obstruction. 2. Liver masses, consistent with metastatic disease. Ultrasound-guided core needle biopsy of a liver mass is recommended. Chest CT
[2024-05-19 20:10] VITALS: BP 146/71; PULSE 78; RESP 18; TEMP 37.1; O2SAT 98
[2024-05-19 22:00] VITALS: O2SAT 98
[2024-05-20 06:00] VITALS: BP 142/77; PULSE 68; RESP 20; TEMP 36.3; O2SAT 94
[2024-05-20 06:34] LABS: Basophils Percent Auto 0.6 % (0.2-1.2); Eosinophils Absolute Auto 0.2 K/mm3 (0-0.3); Eosinophils Percent Auto 2.8 % (0-4.4); Hematocrit 30.2 % (42.0-52.0); Hemoglobin 8.6 g/dL (14.0-18.0); Immature Granulocyte Absolute 0.01 K/mm3 (0.00-0.031); Immature Granulocyte Percent A 0.1 % (0-0.5); Lymphocytes Absolute Auto 1.12 K/mm3 (0.9-3.2); Lymphocytes Percent Auto 16.8 % (18.3-44.2); Mean Corpuscular HGB Conc 28.5 g/dl (32-36); Mean Corpuscular Hemoglobin 21.7 pg (26-34); Mean Corpuscular Volume 76.1 fl (80-100); Mean Platelet Volume 9.1 fl (7.4-10.4); Monocytes Absolute Auto 1.4 K/mm3 (0.1-0.6); Monocytes Percent Auto 21.3 % (2.6-8.5); Neutrophils Absolute Auto 3.9 K/mm3 (1.3-6.7); Neutrophils Percent Auto 58.4 % (45.5-73.1); Platelet Count Result 314 k/mm3 (150-375); Red Blood Count 3.97 M/mm3 (4.6-6.20); Red Cell Distribution Width 21.6 % (11.5-14.5); White Blood Count 6.7 K/mm3 (4.5-10.0)
[2024-05-20 06:48] LABS: Alanine Aminotransferase 11 U/L (6-50); Albumin Level 3.4 g/dL (3.5-5.1); Alkaline Phosphatase 79 U/L (38-126); Anion Gap 8 mmol/L (4-12); Aspartate Amino Transferase 21 U/L (17-59); Bilirubin,Total 0.6 mg/dL (0.2-1.3); Blood Urea Nitrogen 9 mg/dL (9-20); Calcium 8.8 mg/dL (8.4-10.2); Carbon Dioxide 28 mmol/L (22-30); Chloride 99 mmol/L (98-107); Estimated CRCL calculation 67 ml/min; Estimated Glomerular Filt Rate > 60; Glucose 95 mg/dL (65-110); Potassium 3.4 mmol/L (3.4-5.0); Sodium 135 mmol/L (137-145)
[2024-05-20 07:02] LABS: Anisocytosis 2+; Hypochromasia 1+; Macrocytosis 1+ (NORMAL); Microcytosis 1+ (NORMAL); Platelet Estimate Adequate (Adequate); Polychromasia 1+
[2024-05-20 07:03] LABS: Schistocytes None Seen
--- NOTE | 2024-05-20 07:53 | P.PNIM_ITS ---
Progress Note: A&P Assessment and Plan (1) Colon cancer: Code(s): C18.9 - Malignant neoplasm of colon, unspecified Status: Acute Assessment and Plan: * CT abdomen pelvis reveals focal wall thickening of the descending colon consistent with primary malignancy with partial bowel obstruction * Surgery consulted * GI consulted * colonoscopy performed 05/18/2024 A partially obstructing large circumferential fungating friable infiltrative malignancy this was observed in the distal ascending * Liquid Diet * Miralax PRN * Pain control * RT hemicolectomy 05/21 (2) Mass of hepatic flexure of colon: Code(s): K63.89 - Other specified diseases of intestine Status: Acute Assessment and Plan: * See Above (3) Liver mass: Code(s): R16.0 - Hepatomegaly, not elsewhere classified Status: Acute Assessment and Plan: * Liver biopsy 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 Patient is ambulatory and plan is to return home when medically stable. Will need follow-up with oncology outpatient for further treatment plans Time Spent With Patient Time with patient: 15 - 25 minutes Subjective Date/time seen: 05/20/24 07:53 Interval history: Admission: Medical Chart patient 78-year-old gentleman who presents emergency department with chief complaint of lower abdominal pain. Patient reports that pain started around 10 30 last night and reports that has been increasing the patient reports some lower quadrants reports worse whenever he ambulates and improved with rest. The patient reports no trauma denies fever denies vomiting denies diarrhea patient reports that the pain is tolerable whenever he is laying on the stretcher. ED evaluation revealed partial small-bowel obstruction along with ascending colon mass liver masses. He is admitted in the setting 05/19/2024: Assumed Care Patient up in chair in no acute distress with no complaints. Denies any ABD pain, continues on liquid diet and having BM, plan for right hemicolectomy on Friday05/21/2024. 05/20/24: Hgb stable, no acute distress plan for surgery 05/21. Patient with no complaints and denies ABD pain. Patient passing gas and tolerating liquids. Review of Systems Review of Systems: All systems reviewed & are unremarkable except as noted in HPI and below Exam Narrative: Physical Exam:
--- NOTE | 2024-05-20 07:53 | PM.IMPN ---
Progress Note: A&P Assessment and Plan (1) Colon cancer: Code(s): C18.9 - Malignant neoplasm of colon, unspecified Status: Acute Assessment and Plan: CT abdomen pelvis reveals focal wall thickening of the descending colon consistent with primary malignancy with partial bowel obstruction Surgery consulted GI consulted colonoscopy performed 05/18/2024 A partially obstructing large circumferential fungating friable infiltrative malignancy this was observed in the distal ascending Liquid Diet Miralax PRN Pain control RT hemicolectomy 05/21 (2) Mass of hepatic flexure of colon: Code(s): K63.89 - Other specified diseases of intestine Status: Acute Assessment and Plan: See Above (3) Liver mass: Code(s): R16.0 - Hepatomegaly, not elsewhere classified Status: Acute Assessment and Plan: Liver biopsy 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 Patient is ambulatory and plan is to return home when medically stable. Will need follow-up with oncology outpatient for further treatment plans Time Spent With Patient Time with patient: 15 - 25 minutes Subjective Date/time seen: 05/20/24 07:53 Interval history: Admission: Medical Chart patient 78-year-old gentleman who presents emergency department with chief complaint of lower abdominal pain. Patient reports that pain started around 10 30 last night and reports that has been increasing the patient reports some lower quadrants reports worse whenever he ambulates and improved with rest. The patient reports no trauma denies fever denies vomiting denies diarrhea patient reports that the pain is tolerable whenever he is laying on the stretcher. ED evaluation revealed partial small-bowel obstruction along with ascending colon mass liver masses. He is admitted in the setting 05/19/2024: Assumed Care Patient up in chair in no acute distress with no complaints. Denies any ABD pain, continues on liquid diet and having BM, plan for right hemicolectomy on Friday05/21/2024. 05/20/24: Hgb stable, no acute distress plan for surgery 05/21. Patient with no complaints and denies ABD pain. Patient passing gas and tolerating liquids. Review of Systems Review of Systems: All systems reviewed & are unremarkable except as noted in HPI and below Exam Narrative: Physical Exam: GENERAL: Alert and oriented x 3. No acute distress. EYES: EOMI. No scleral icterus. PERRLA. HEENT: Moist mucous membranes. LUNGS: Clear to auscultation bilaterally. No accessory muscle use. CARDIOVASCULAR: Regular rate and rhythm. No murmur. No JVD. S1-S2 ABDOMEN: Soft, non tenderness and non-distended. No palpable masses. EXTREMITIES: No edema. Non-tender SKIN: No rashes or lesions. Skin warm, dry. NEUROLOGIC: No focal neurological deficits. CN II-XII grossly intact PSYCHIATRIC: Appropriate mood and affect. Good judgement and insight. No visual or auditory hallucinations. No suicidal or homicidal ideation. Objective Data Vital Signs Vital Signs: Vital Signs - 24 hr 05/19/24 08:00 05/19/24 14:00 05/19/24 20:10 Temperature 98.6 F 98.8 F Pulse Rate 70 78 Respiratory Rate 12 18 Blood Pressure 156/68 H 146/71 H Pulse Oximetry 99 98 Oxygen Delivery Room Air 05/19/24 22:00 08
[2024-05-20] MEDS: PANTOPRAZOLE SODIUM IV 40 MG VIAL IV PUSH (09:12)
[2024-05-20] MEDS: polyethylene glycoL 3350 17 GM POWD.PACK PO ×2 (09:12→14:55)
[2024-05-20] MEDS: CYANOCOBALAMIN INJ 1,000 MCG/ML VIAL 1000 MCG IM (09:12)
[2024-05-20] MEDS: ATORVASTATIN 40 MG TABLET BY MOUTH (09:12)
--- NOTE | 2024-05-20 09:53 | WPDPN ---
Progress Note: A&P Assessment and Plan (1) Colon cancer: Code(s): C18.9 - Malignant neoplasm of colon, unspecified Status: Acute Assessment and Plan: Patient is to undergo a hand assisted laparoscopic right hemicolectomy tomorrow. We will make sure all of his preoperative labs are done he has type and screen for blood. He has been on clear liquids and ensure. Will give an additional dose of MiraLax today to make sure his colon is cleaned out. Will also give Cipro and Flagyl orally for antibiotic prep. Patient was informed of his biopsy results today. His daughter works at [facility] [facility]. His preference is to have Oncology evaluation after surgery as an outpatient with the oncologist at [facility]. Subjective Date/time seen: 05/20/24 09:53 Interval history: Patient is doing well today. No acute clinical changes. Continuing on clear liquids with Ensure. Both the liver biopsy and biopsy of colon mass shows invasive adenocarcinoma. Exam GI: GI Palp: Yes Soft to palpation, No Firmness to palpation present (GI), No Tenderness to palpation present (GI), No Guarding due to palpation present (GI) and No Hernia present Objective Data Vital Signs Vital Signs: Vital Signs - 24 hr 05/19/24 14:00 05/19/24 20:10 05/19/24 22:00 Temperature 37.0 C 37.1 C Pulse Rate 70 78 Respiratory Rate 12 18 Blood Pressure 156/68 H 146/71 H Pulse Oximetry 99 98 98 Oxygen Delivery Room Air 05/20/24 06:00 Temperature 36.3 C L Pulse Rate 68 Respiratory Rate 20 Blood Pressure 142/77 H Pulse Oximetry 94 Oxygen Delivery Intake/Output Intake/Output: Intake & Output 05/17/24 05/18/24 05/19/24 05/20/24 23:59 23:59 23:59 23:59 Intake Total 1380 1380 1350 750 Balance 1380 1380 1350 750 Meds/Results Medications: Active Medications Generic Name Dose Route Start Last Admin Trade Name Freq PRN Reason Stop Dose Admin Acetaminophen 650 mg 05/19/24 14:06 Acetaminophen 325 Mg Tablet PO Q4H PRN Mild Pain (1-3) or Fever Atorvastatin Calcium 40 mg 05/16/24 09:00 05/20/24 09:12 Atorvastatin 40 Mg Tablet BY MOUTH 40 mg DAILY DANDRE Administration Cyanocobalamin 1,000 mcg 05/16/24 09:00 05/20/24 09:12 Cyanocobalamin Inj 1,000 Mcg/Ml Vial IM 05/23/24 08:59 1,000 mcg DAILY DANDRE Administration Morphine Sulfate 2 mg 05/15/24 07:01 Morphine Sulfate (*Crx) 2 Mg/Ml Inj IV PUSH Q2H PRN Pain Rated 7-10 Ondansetron HCl 4 mg 05/15/24 07:01 Ondansetron Inj 4 Mg/2 Ml Vial IV PUSH Q4H PRN Nausea Ondansetron HCl 4 mg 05/19/24 14:06 Ondansetron Inj 4 Mg/2 Ml Vial IV PUSH Q6H PRN Nausea And Vomiting Pantoprazole Sodium 40 mg 05/20/24 09:00 05/20/24 09:12 Pantoprazole Sodium Iv 40 Mg Vial IV PUSH 40 mg QAM DANDRE Administration Polyethylene Glycol 17 gm 05/19/24 09:00 05/20/24 09:12 Polyethylene Glycol 3350 17 Gm Powd.Pack PO 17 gm QAM DANDRE Administration Radiology Results: ITS Impressions Abdomen/Pelvis CT 05/15/24 06:13 IMPRESSION: 1. Focal wall thickening of the ascending colon, consistent with primary malignancy with partial bowel obstruction. 2. Liver masses, consistent with metastatic disease. Ultrasound-guided core needle biopsy of a liver mass is recommended. Chest CT 05/16/24 09:47 IMPRESSION: 1. Liver masses, consistent with metastatic disease. Ultrasound-guided core needle biopsy is recommended. Liver Biopsy Ultrasound 05/18/24 13:28 IMPRESSION: 1. Successful Ultrasound-guided biopsy of a 1.5 cm subtly hypoechoic nodule at the inferior right hepatic lobe. Labs Labs: Laboratory Results - last 24 hr 05/20/24 05:51 WBC 6.7 RBC 3.97 L Hgb 8.6 L Hct 30.2 L MCV 76.1 L MCH 21.7 L MCHC 28.5 L RDW 21.6 H Plt Count 314 MPV 9.1 Immature Gran % (Auto) 0.1 Neut % (Auto) 58.4 Lymph % (Auto) 16.8 L [place] % (Auto) 21.3 H Eos % (Auto) 2.8 Baso % (Auto) 0.6 Lymph
[2024-05-20] MEDS: metroNIDAZOLE 500 MG TABLET PO ×3 (13:44→22:15)
[2024-05-20] MEDS: CIPROFLOXACIN 500 MG TAB PO (13:44)
[2024-05-20] MEDS: HEPARIN SODIUM 5,000 UNITS/ML VIAL 5000 UNITS SUB-Q ×2 (13:45→22:15)
[2024-05-20 14:00] VITALS: BP 144/68; PULSE 76; RESP 18; TEMP 36.4; O2SAT 98
[2024-05-20] MEDS: CHLORHEXIDINE GLUCONATE 4% SOL 120 ML BTL 1 APPLIC TOPICAL (16:41)
[2024-05-20 19:55] VITALS: BP 146/82; PULSE 70; RESP 18; TEMP 36.6; O2SAT 100
[2024-05-21] VITALS (9 sets, daily range): BP systolic 112–160; BP diastolic 48–76; PULSE 71–88; RESP 15–22; TEMP 36.6–37.7; O2SAT 93–99
[2024-05-21 06:38] LABS: Basophils Percent Auto 0.3 % (0.2-1.2); Eosinophils Absolute Auto 0.2 K/mm3 (0-0.3); Eosinophils Percent Auto 3.5 % (0-4.4); Hematocrit 29.8 % (42.0-52.0); Hemoglobin 8.4 g/dL (14.0-18.0); Immature Granulocyte Absolute 0.03 K/mm3 (0.00-0.031); Immature Granulocyte Percent A 0.5 % (0-0.5); Lymphocytes Absolute Auto 1.14 K/mm3 (0.9-3.2); Lymphocytes Percent Auto 19.3 % (18.3-44.2); Mean Corpuscular HGB Conc 28.2 g/dl (32-36); Mean Corpuscular Hemoglobin 21.4 pg (26-34); Mean Platelet Volume 9.2 fl (7.4-10.4); Monocytes Absolute Auto 1.1 K/mm3 (0.1-0.6); Monocytes Percent Auto 18.1 % (2.6-8.5); Neutrophils Absolute Auto 3.5 K/mm3 (1.3-6.7); Neutrophils Percent Auto 58.3 % (45.5-73.1); Platelet Count Result 308 k/mm3 (150-375); Red Blood Count 3.92 M/mm3 (4.6-6.20); Red Cell Distribution Width 22.5 % (11.5-14.5); White Blood Count 5.9 K/mm3 (4.5-10.0)
[2024-05-21 06:49] LABS: Anion Gap 7 mmol/L (4-12); Aspartate Amino Transferase 22 U/L (17-59); Bilirubin,Total 0.5 mg/dL (0.2-1.3); Blood Urea Nitrogen 8 mg/dL (9-20); Calcium 8.6 mg/dL (8.4-10.2); Carbon Dioxide 28 mmol/L (22-30); Chloride 98 mmol/L (98-107); Estimated CRCL calculation 67 ml/min; Estimated Glomerular Filt Rate > 60; Glucose 100 mg/dL (65-110); Potassium 3.4 mmol/L (3.4-5.0); Sodium 133 mmol/L (137-145)
[2024-05-21 06:50] LABS: Alanine Aminotransferase 11 U/L (6-50); Albumin Level 3.4 g/dL (3.5-5.1); Alkaline Phosphatase 78 U/L (38-126)
[2024-05-21 07:02] LABS: Anisocytosis 1+; Hypochromasia 2+; Microcytosis 1+ (NORMAL); Platelet Estimate Adequate (Adequate); Schistocytes None Seen
--- NOTE | 2024-05-21 07:31 | WPDHPUPDATE1 ---
History and Physical Update Update Date/Time: 05/21/24 07:31 History and Physical has been reviewed, including an updated exam of the patient. There are NO changes in the patient's condition. Risks, benefits, and alternatives have been discussed and questions answered. Patient agrees to proceed with procedure.
--- NOTE | 2024-05-21 07:40 | P.PNIM_ITS ---
Progress Note: A&P Assessment and Plan (1) Colon cancer: Code(s): C18.9 - Malignant neoplasm of colon, unspecified Status: Acute Assessment and Plan: * CT abdomen pelvis reveals focal wall thickening of the descending colon consistent with primary malignancy with partial bowel obstruction * Surgery consulted * GI consulted * colonoscopy performed 05/18/2024 A partially obstructing large circumferential fungating friable infiltrative malignancy this was observed in the distal ascending * Liquid Diet * Miralax PRN * Pain control * RT hemicolectomy 05/21 (2) Mass of hepatic flexure of colon: Code(s): K63.89 - Other specified diseases of intestine Status: Acute Assessment and Plan: * See Above (3) Liver mass: Code(s): R16.0 - Hepatomegaly, not elsewhere classified Status: Acute Assessment and Plan: * Liver biopsy 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 Patient is ambulatory and plan is to return home when medically stable. Will need follow-up with oncology outpatient for further treatment plans Time Spent With Patient Time with patient: 15 - 25 minutes Subjective Date/time seen: 05/21/24 07:40 Interval history: Admission: Medical Chart patient 78-year-old gentleman who presents emergency department with chief complaint of lower abdominal pain. Patient reports that pain started around 10 30 last night and reports that has been increasing the patient reports some lower quadrants reports worse whenever he ambulates and improved with rest. The patient reports no trauma denies fever denies vomiting denies diarrhea patient reports that the pain is tolerable whenever he is laying on the stretcher. ED evaluation revealed partial small-bowel obstruction along with ascending colon mass liver masses. He is admitted in the setting 05/19/2024: Assumed Care Patient up in chair in no acute distress with no complaints. Denies any ABD pain, continues on liquid diet and having BM, plan for right hemicolectomy on Friday05/21/2024. 05/20/24: Hgb stable, no acute distress plan for surgery 05/21. Patient with no complaints and denies ABD pain. Patient passing gas and tolerating liquids. 05/21/24: Patient to have surgery today aware of the liver biopsy findings will follow outpatient with an oncologist for further evaluation and discuss treatment options. Hgb remains stable 1530: Follow-up with patie
--- NOTE | 2024-05-21 07:40 | PM.IMPN ---
Progress Note: A&P Assessment and Plan (1) Colon cancer: Code(s): C18.9 - Malignant neoplasm of colon, unspecified Status: Acute Assessment and Plan: CT abdomen pelvis reveals focal wall thickening of the descending colon consistent with primary malignancy with partial bowel obstruction Surgery consulted GI consulted colonoscopy performed 05/18/2024 A partially obstructing large circumferential fungating friable infiltrative malignancy this was observed in the distal ascending Liquid Diet Miralax PRN Pain control RT hemicolectomy 05/21 (2) Mass of hepatic flexure of colon: Code(s): K63.89 - Other specified diseases of intestine Status: Acute Assessment and Plan: See Above (3) Liver mass: Code(s): R16.0 - Hepatomegaly, not elsewhere classified Status: Acute Assessment and Plan: Liver biopsy 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 Patient is ambulatory and plan is to return home when medically stable. Will need follow-up with oncology outpatient for further treatment plans Time Spent With Patient Time with patient: 15 - 25 minutes Subjective Date/time seen: 05/21/24 07:40 Interval history: Admission: Medical Chart patient 78-year-old gentleman who presents emergency department with chief complaint of lower abdominal pain. Patient reports that pain started around 10 30 last night and reports that has been increasing the patient reports some lower quadrants reports worse whenever he ambulates and improved with rest. The patient reports no trauma denies fever denies vomiting denies diarrhea patient reports that the pain is tolerable whenever he is laying on the stretcher. ED evaluation revealed partial small-bowel obstruction along with ascending colon mass liver masses. He is admitted in the setting 05/19/2024: Assumed Care Patient up in chair in no acute distress with no complaints. Denies any ABD pain, continues on liquid diet and having BM, plan for right hemicolectomy on Friday05/21/2024. 05/20/24: Hgb stable, no acute distress plan for surgery 05/21. Patient with no complaints and denies ABD pain. Patient passing gas and tolerating liquids. 05/21/24: Patient to have surgery today aware of the liver biopsy findings will follow outpatient with an oncologist for further evaluation and discuss treatment options. Hgb remains stable 1530: Follow-up with patient post surgery doing well alert oriented, denied any SOB or CP with minimal pain. Can start on liquid diet per surgery and encourage ambulation. Review of Systems Review of Systems: All systems reviewed & are unremarkable except as noted in HPI and below Exam Narrative: Physical Exam: GENERAL: Alert and oriented x 3. No acute distress. EYES: EOMI. No scleral icterus. PERRLA. HEENT: Moist mucous membranes. LUNGS: Clear to auscultation bilaterally. No accessory muscle use. CARDIOVASCULAR: Regular rate and rhythm. No murmur. No JVD. S1-S2 ABDOMEN: Soft, non tenderness and non-distended. No palpable masses. midline incision mitchell in place EXTREMITIES: No edema. Non-tender SKIN: No rashes or lesions. Skin warm, dry. NEUROLOGIC: No focal neurological deficits. CN II-XII grossly intact PSYCHIATRIC: Appropriate mood and affec
--- NOTE | 2024-05-21 08:05 | WPDANESEPPF ---
Anes - Initial Pre Proc Eval Procedure: Operation Date: 05/17/24 16:00 Proposed Procedures p Colonoscopy - Ollie Denis MD Operation Date: 05/21/24 09:00 Proposed Procedures p Hand Assisted Laparoscopic Right Hemicolectomy - Kenneth Gerardo MD Date/Time: 05/21/24 08:05 Surgeon: Lizet Garcia APRN Pre Op Diagnosis: abdominal pain,partial small bowel obsruction,inte Patient Data Age: 78 Gender: M Height: 1.78 m Weight: 91.1 kg Last Vital Signs Temp 97.9 F 05/21/24 07:57 Pulse 72 05/21/24 07:57 Resp 16 05/21/24 07:57 BP 133/76 05/21/24 07:57 Pulse Ox 96 05/21/24 07:57 O2 Del Method Room Air 05/21/24 07:57 Allergies Allergy/AdvReac Type Severity Reaction Status Date / Time No Known Allergies Allergy Verified 05/21/24 07:55 Home Medications Medication Instructions Recorded Confirmed Type aspirin 81 mg tablet 81 mg PO DAILY 05/15/24 05/15/24 History atorvastatin 40 mg tablet (Lipitor) 40 mg DAILY 05/15/24 05/15/24 History Laboratory Tests 05/21/24 05:59 WBC 5.9 K/mm3 (4.5-10.0) RBC 3.92 L M/mm3 (4.6-6.20) Hgb 8.4 L g/dL (14.0-18.0) Hct 29.8 L % (42.0-52.0) MCV 76.0 L fl (80-100) MCH 21.4 L pg (26-34) MCHC 28.2 L g/dl (32-36) RDW 22.5 H % (11.5-14.5) Plt Count 308 k/mm3 (150-375) MPV 9.2 fl (7.4-10.4) Immature Gran % (Auto) 0.5 % (0-0.5) Neut % (Auto) 58.3 % (45.5-73.1) Lymph % (Auto) 19.3 % (18.3-44.2) [place] % (Auto) 18.1 H % (2.6-8.5) Eos % (Auto) 3.5 % (0-4.4) Baso % (Auto) 0.3 % (0.2-1.2) Lymph # (Auto) 1.14 K/mm3 (0.9-3.2) [place] # (Auto) 1.1 H K/mm3 (0.1-0.6) Eos # (Auto) 0.2 K/mm3 (0-0.3) Baso # (Auto) 0.0 K/mm3 (0.0-0.1) Abs Immat Gran (auto) 0.03 K/mm3 (0.00-0.031) Absolute Neuts (auto) 3.5 K/mm3 (1.3-6.7) Absolute Nucleated RBC 0.000 K/mm3 (0.0-0.012) Nucleated RBC % 0.0 % (0.0-0.2) Platelet Estimate Adequate (Adequate) Hypochromasia 2+ Anisocytosis 1+ Microcytosis 1+ (NORMAL) Schistocytes None seen Sodium 133 L mmol/L (137-145) Potassium 3.4 mmol/L (3.4-5.0) Chloride 98 mmol/L (98-107) Carbon Dioxide 28 mmol/L (22-30) Anion Gap 7 mmol/L (4-12) BUN 8 L mg/dL (9-20) Creatinine 0.80 mg/dL (0.7-1.3) Estim Creat Clear Calc 67 ml/min Estimated GFR > 60 (59 - ) Glucose 100 mg/dL (65-110) Calcium 8.6 mg/dL (8.4-10.2) Total Bilirubin 0.5 mg/dL (0.2-1.3) AST 22 U/L (17-59) ALT 11 U/L (6-50) Alkaline Phosphatase 78 U/L (38-126) Total Protein 6.0 L g/dL (6.3-8.2) Albumin 3.4 L g/dL (3.5-5.1) Patient hx anesthesia problems: none Family hx anesthesia problems: none Results Review: All pre-operative results and documents have been reviewed as part of the pre-operative evaluation. [facility] Past Medical History Medical History (Updated 05/19/24 @ 16:07 by Kenneth Gerardo MD) Colon cancer Colonic mass Metastatic disease Microcytic anemia Nausea Social History Social History Smokeless tobacco user: chewing tobacco Second hand tobacco smoke exposure: No Alcohol intake: current Drinks per week: 25 Substance use: never Substance use type: does not use Do You Feel Safe in your Home?: Yes Lack of Transportation: YES Lack of Food: Never True Current Housing: I Do Not Have Housing Concerned About Future Housing: No Difficulty Paying Gas/Electric Bills: No Difficulty Paying for Meds: No Currently Unemployed: No Education: Associate Degree Difficulty w/ Childcare or Family Care: No Spiritual care concerns: No Anes - Eval Final PreProcedure Day of Procedure 05/21/24 08:05 Patient weight: normal Heart: regular rate and rhythm Lungs: clear to auscultation Airway: Mallampati scale
[2024-05-21] MEDS: LACTATED RINGERS 1,000 ML 30 ML IV CONT ×2 (08:33→13:01)
[2024-05-21] MEDS: ALVIMOPAN 12 MG CAPSULE PO ×2 (08:33→19:52)
[2024-05-21] MEDS: ceFAZolin 2 GM/D5W 50 ML 2 GM/50 ML BAG IVPB (09:48)
[2024-05-21] MEDS: LIDO 1%/EPINEPHRINE 1:100,000 20 ML VIAL 30 ML INFILTRATE (10:30)
[2024-05-21] MEDS: BUPivacaine HCL 0.5% PF 30 ML VIAL INFILTRATE (10:36)
[2024-05-21] MEDS: KETOROLAC 15 MG/ML VIAL (*BKC) IV PUSH (12:28)
--- NOTE | 2024-05-21 13:12 | W.PM.PROC2 ---
Procedure Note - Detailed Date of Procedure 05/21/24 Pre-op Diagnosis Right ascending colon invasive adenocarcinoma with liver metastasis Post-op Diagnosis Same Procedure Performed Hand assisted laparoscopic colectomy with [id number] stapled ileocolic anastomosis Surgeon Kenneth Gerardo MD [employer] Summer POTTSA Anesthesia General Indications Patient is a 78-year-old white male admitted to the hospital with severe microcytic anemia. He got blood transfusion and underwent a colonoscopy. He was found to have a partially obstructive right ascending colon mass which was biopsied and results showed invasive adenocarcinoma. He had several small liver lesions as well and 1 of the lesions was biopsied with ultrasound guidance in Radiology and this unfortunate pipe turner to be metastatic adenocarcinoma from the colon primary. He presents now for a hand assisted laparoscopic right hemicolectomy for resection of the primary tumor and to prevent eventually obstruction of the colon. Findings Patient had a tangerine sized mass in the ascending colon just proximal to the hepatic flexure. There was no evidence of extension of the tumor through the serosa of the colon. No enlarged lymph nodes were palpated along the ileocolic chain. There was no peritoneal studding. I could not see any masses on the surface of the liver. Description of Procedure After informed consent was obtained patient brought to the operating room placed supine position and general endotracheal anesthesia was administered. A Reyes catheter was placed decompress the bladder an orogastric tube was placed decompress the stomach. The abdomen was then prepped and draped usual sterile fashion. Time-out was then performed correctly identifying the patient as well as procedure to be performed. He was given preoperative IV antibiotics. I 1st started by placing a 5mm Optiview port left upper quadrant under direct optical insertion. Once inside the abdomen insufflated to adequate pneumoperitoneum of 15mmHg of CO2. There were no adhesions of bowel or omentum to the undersurface of the anterior abdominal wall and so then made a small 7 the 8cm midline incision starting just at the umbilicus and extending cephalad on the lower epigastric region of the abdomen the scalpel. Dissection was then carried down through the subcutaneous tissue electrocautery and the abdomen was entered in the lower epigastric region. The fascia was then opened to match the length of the skin incision. A GelPort was then placed and pneumoperitoneum was then read she had. I then placed 2 more 5mm trocar ports under direct visualization 1 being in the left lateral abdominal wall and other in the right upper quadrant abdominal wall. Working through all these ports I was then able to divide some omental adhesions to the right lateral abdominal wall. This done with the LigaSure energy device. I then placed my hand into the abdomen via the GelPort and then was able to then reflect the omentum to the left side of the abdomen and divided it off of the right transverse colon utilizing the LigaSure device. I then started to mobilize the ascending colon to the midline. The lateral peritoneal reflection on the right side was then divided utilizing LigaSure device. The mass is easily palpated in the ascending colon just proximal to the hepatic flexure. As I continued to mobilize the hepatic flexure to the midline I divided the hepatocolic ligament. I then identified the duodenum and preserved distal any injury continued to dissect the mesentery of the right colon off of the duodenum with the LigaSure device. I continued to mobilize the colon until the hepatic flexure was at the midline. Dissection was carried to the midline to the mid transverse colon. I then proceeded to mobilize the cecum to the midline as well. There was some peritoneal attachments holding the cecum laterally. These were divided with LigaSure device. The appendix was i
[2024-05-21] MEDS: PANTOPRAZOLE SODIUM IV 40 MG VIAL IV PUSH (18:51)
[2024-05-21] MEDS: ceFAZolin 1 GM/NS 50 ML 1 GM/50 ML BAG IVPB (18:51)
[2024-05-21] MEDS: HEPARIN SODIUM 5,000 UNITS/ML VIAL 5000 UNITS SUB-Q (19:53)
[2024-05-22] MEDS: ACETAMINOPHEN 500 MG TABLET 1000 MG PO ×3 (05:09→20:30)
[2024-05-22] MEDS: ceFAZolin 1 GM/NS 50 ML 1 GM/50 ML BAG IVPB (05:11)
[2024-05-22] MEDS: HEPARIN SODIUM 5,000 UNITS/ML VIAL 5000 UNITS SUB-Q (05:11)
[2024-05-22 05:53] VITALS: BP 160/72; PULSE 74; RESP 20; TEMP 37.1; O2SAT 99
[2024-05-22 06:55] LABS: Hematocrit 29.2 % (42.0-52.0); Hemoglobin 8.3 g/dL (14.0-18.0); Mean Corpuscular HGB Conc 28.4 g/dl (32-36); Mean Corpuscular Hemoglobin 21.9 pg (26-34); Mean Platelet Volume 9.2 fl (7.4-10.4); Platelet Count Result 302 k/mm3 (150-375); Red Blood Count 3.79 M/mm3 (4.6-6.20); Red Cell Distribution Width 22.7 % (11.5-14.5)
[2024-05-22 07:14] LABS: Anion Gap 8 mmol/L (4-12); Blood Urea Nitrogen 12 mg/dL (9-20); Calcium 8.8 mg/dL (8.4-10.2); Carbon Dioxide 27 mmol/L (22-30); Chloride 100 mmol/L (98-107); Estimated CRCL calculation 50 ml/min; Estimated Glomerular Filt Rate > 60; Glucose 128 mg/dL (65-110); Potassium 3.6 mmol/L (3.4-5.0); Sodium 135 mmol/L (137-145)
[2024-05-22] MEDS: ALVIMOPAN 12 MG CAPSULE PO (08:43)
[2024-05-22] MEDS: ATORVASTATIN 40 MG TABLET BY MOUTH (08:43)
[2024-05-22] MEDS: PANTOPRAZOLE SODIUM IV 40 MG VIAL IV PUSH (08:44)
[2024-05-22] MEDS: CYANOCOBALAMIN INJ 1,000 MCG/ML VIAL 1000 MCG IM (08:44)
[2024-05-22] MEDS: ENOXAPARIN 40 MG/0.4 ML SYRINGE SUB-Q (08:45)
--- NOTE | 2024-05-22 11:10 | P.PNIM_ITS ---
Progress Note: A&P Assessment and Plan (1) Colon cancer: Code(s): C18.9 - Malignant neoplasm of colon, unspecified Status: Acute Assessment and Plan: * CT abdomen pelvis reveals focal wall thickening of the descending colon consistent with primary malignancy with partial bowel obstruction * Surgery consulted * GI consulted * colonoscopy performed 05/18/2024 A partially obstructing large circumferential fungating friable infiltrative malignancy this was observed in the distal ascending * Liquid Diet * Miralax PRN * Pain control * RT hemicolectomy 05/2105/22/24: * Full liquid diet * encourage activity (2) Mass of hepatic flexure of colon: Code(s): K63.89 - Other specified diseases of intestine Status: Acute Assessment and Plan: * See Above (3) Liver mass: Code(s): R16.0 - Hepatomegaly, not elsewhere classified Status: Acute Assessment and Plan: * Liver biopsy 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 * Mass noted consistent with metastatic * Oncology consulted (4) Microcytic anemia: Code(s): D50.9 - Iron deficiency anemia, unspecified Status: Acute Assessment and Plan: * Likely secondary to current colon and liver mass * Iron panel showing iron deficiency anemia * Monitor H&H * transfuse PRBC if Hgb <7.0 * Start Iron supplements Plan Code status: Full code per patient DVT prophylaxis: SCDs Stress ulcer prophylaxis: Protonix 40 daily PT/OT notes: Ambulatory Disposition: Patient continues admission to the medical unit had surgery on Monday 05/21 waiting on return of bowel function advance diet per surgery.. Patient is ambulatory and plan is to return home when medically stable. Will need follow-up with oncology outpatient for further treatment plans Time Spent With Patient Time with patient: 15 - 25 minutes Subjective Date/time seen: 05/22/24 11:10 Interval history: Admission: Medical Chart patient 78-year-old gentleman who presents emergency department with chief complaint of lower abdominal pain. Patient reports that pain started around 10 30 last night and reports that has been increasing the patient reports some lower quadrants reports worse whenever he ambulates and improved with rest. The patient reports no trauma denies fever denies vomiting denies diarrhea patient reports that the pain is tolerable whenever he is laying on the stretcher. ED evaluation revealed partial small-bowel obstruction along with ascending colon mass liver masses. He is admitted in the setting 05/19/2024: Assumed Care Patient up in chair in no acute distress with no complaints. Denies any ABD pain, continues on liquid diet and having BM, plan for right hemicolectomy on Friday05/21/2024. 05/20/24: Hgb stable, no acute distress plan for surgery 05/21. Patient with no complaints and denies ABD pain. Patient passing gas and tolerating liquids. 05/21/24: Patient to have surgery today aware of the liver biopsy findings will follow outpatient with
--- NOTE | 2024-05-22 11:10 | PM.IMPN ---
Progress Note: A&P Assessment and Plan (1) Colon cancer: Code(s): C18.9 - Malignant neoplasm of colon, unspecified Status: Acute Assessment and Plan: CT abdomen pelvis reveals focal wall thickening of the descending colon consistent with primary malignancy with partial bowel obstruction Surgery consulted GI consulted colonoscopy performed 05/18/2024 A partially obstructing large circumferential fungating friable infiltrative malignancy this was observed in the distal ascending Liquid Diet Miralax PRN Pain control RT hemicolectomy 05/2105/22/24: Full liquid diet encourage activity (2) Mass of hepatic flexure of colon: Code(s): K63.89 - Other specified diseases of intestine Status: Acute Assessment and Plan: See Above (3) Liver mass: Code(s): R16.0 - Hepatomegaly, not elsewhere classified Status: Acute Assessment and Plan: Liver biopsy 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 Mass noted consistent with metastatic Oncology consulted (4) Microcytic anemia: Code(s): D50.9 - Iron deficiency anemia, unspecified Status: Acute Assessment and Plan: Likely secondary to current colon and liver mass Iron panel showing iron deficiency anemia Monitor H&H transfuse PRBC if Hgb <7.0 Start Iron supplements Plan Code status: Full code per patient DVT prophylaxis: SCDs Stress ulcer prophylaxis: Protonix 40 daily PT/OT notes: Ambulatory Disposition: Patient continues admission to the medical unit had surgery on Monday 05/21 waiting on return of bowel function advance diet per surgery.. Patient is ambulatory and plan is to return home when medically stable. Will need follow-up with oncology outpatient for further treatment plans Time Spent With Patient Time with patient: 15 - 25 minutes Subjective Date/time seen: 05/22/24 11:10 Interval history: Admission: Medical Chart patient 78-year-old gentleman who presents emergency department with chief complaint of lower abdominal pain. Patient reports that pain started around 10 30 last night and reports that has been increasing the patient reports some lower quadrants reports worse whenever he ambulates and improved with rest. The patient reports no trauma denies fever denies vomiting denies diarrhea patient reports that the pain is tolerable whenever he is laying on the stretcher. ED evaluation revealed partial small-bowel obstruction along with ascending colon mass liver masses. He is admitted in the setting 05/19/2024: Assumed Care Patient up in chair in no acute distress with no complaints. Denies any ABD pain, continues on liquid diet and having BM, plan for right hemicolectomy on Friday05/21/2024. 05/20/24: Hgb stable, no acute distress plan for surgery 05/21. Patient with no complaints and denies ABD pain. Patient passing gas and tolerating liquids. 05/21/24: Patient to have surgery today aware of the liver biopsy findings will follow outpatient with an oncologist for further evaluation and discuss treatment options. Hgb remains stable 1530: Follow-up with patient post surgery doing well alert oriented, denied any SOB or CP with minimal pain. Can start on liquid diet per surgery and encourage ambulation. 05/22/24: Patient up in chair mild ABD pain, no flatulence or BM currently on full liquid diet will Reyes can advance once patient's bowel function returns patient ambulatory encourage hydration and activity. Normal WBC and afebrile Review of Systems Review of Systems: All systems reviewed & are unremarkable except as noted in HPI and below Exam Narrative: Physical Exam: GENERAL: Alert and oriented x 3. No acute distress. EYES: EOMI. No scleral icterus. PERRLA. HEENT: Moist mucous membranes. LUNGS: Clear to auscultation bilaterally. No accessory muscle use. CARDIOVASCULAR: Regula
[2024-05-22 13:42] VITALS: BP 155/64; PULSE 76; RESP 18; TEMP 36.6; O2SAT 100
--- NOTE | 2024-05-22 13:48 | PM.PNGS ---
Progress Note: A&P Assessment and Plan (1) Colon cancer: Code(s): C18.9 - Malignant neoplasm of colon, unspecified Status: Acute Assessment and Plan: s/p resection, doing well, will ADAT, encourage OOB/IS, home soon Subjective Subjective Date/Time Seen: 05/22/24 13:48 Interval history: feels pretty good, some incisional soreness, nathanael clears Review of Systems Review of Systems: All systems reviewed & are unremarkable except as noted in HPI and below Exam Const: General: cooperative, comfortable and no acute distress Resp: Auscultation: clear to auscultation bilaterally Cardio: Rate: regular rate Rhythm: regular rhythm GI: Inspection: normal to inspection, distended and incision GI Palp: Yes abdominal tenderness, Yes Soft to palpation and Yes Tenderness to palpation present (GI) Objective Data Vital Signs Vital Signs: Vital Signs - 24 hr 05/21/24 13:54 05/21/24 20:00 05/21/24 21:22 Temperature 37.7 C H Pulse Rate 78 78 Respiratory Rate 18 22 H Blood Pressure 132/62 160/75 H Pulse Oximetry 94 94 98 Oxygen Delivery Room Air Room Air 05/22/24 05:53 05/22/24 08:40 05/22/24 13:42 Temperature 37.1 C 36.6 C Pulse Rate 74 76 Respiratory Rate 20 18 Blood Pressure 160/72 H 155/64 H Pulse Oximetry 99 100 Oxygen Delivery Room Air Intake/Output Intake/Output: Intake & Output 05/19/24 05/20/24 05/21/24 05/22/24 23:59 23:59 23:59 23:59 Intake Total 1350 2190 672 1270 Output Total 3 Balance 1350 2187 672 1270 Meds/Results Medications: Active Medications Generic Name Dose Route Start Last Admin Trade Name Freq PRN Reason Stop Dose Admin Acetaminophen 1,000 mg 05/21/24 13:56 05/22/24 12:41 Acetaminophen 500 Mg Tablet PO 1,000 mg Q6H PRN Administration Mild Pain (1-3) or Fever Hydrocodone Bitart/Acetaminophen 1 tab 05/21/24 13:56 Hydrocodone/Acetaminophen (*Crx) 5-325 Mg Tablet PO Q4H PRN Pain Rated 4-6 Atorvastatin Calcium 40 mg 05/16/24 09:00 05/22/24 08:43 Atorvastatin 40 Mg Tablet BY MOUTH 40 mg DAILY DANDRE Administration Cyanocobalamin 1,000 mcg 05/16/24 09:00 05/22/24 08:44 Cyanocobalamin Inj 1,000 Mcg/Ml Vial IM 05/23/24 08:59 1,000 mcg DAILY DANDRE Administration Enoxaparin Sodium 40 mg 05/22/24 09:00 05/22/24 08:45 Enoxaparin 40 Mg/0.4 Ml Syringe SUB-Q 40 mg DAILY DANDRE Administration Fentanyl Citrate 25 mcg 05/21/24 08:07 Fentanyl Citrate Inj (*Crx) 100 Mcg/2 Ml Vial IV PUSH Q2M PRN Pain Heparin Sodium (Porcine) 5,000 units 05/20/24 14:00 05/22/24 12:45 Heparin Sodium 5,000 Units/Ml Vial SUB-Q Not Given Q8HR [facility] Lactated Ringer's 1,000 mls @ 30 mls/hr 05/21/24 08:10 05/22/24 07:39 Lr - Lactated Ringers Iv IV CONT Not Given .Q24H DANDRE Lactated Ringer's 1,000 mls @ 30 mls/hr 05/21/24 08:10 05/22/24 07:39 Lr - Lactated Ringers Iv IV CONT Not Given .Q24H [facility] Ibuprofen 800 mg in 200 mls @ 400 mls/hr 05/21/24 13:56 Caldolor 800 Mg/200 Ml IVPB Q8H PRN Pain Rated 4-6 Dextrose/Lactated Ringer's 1,000 mls @ 125 mls/hr 05/22/24 09:10 Dextrose 5%/Lactated Ringers IV CONT .Q8H [facility] Morphine Sulfate 2 mg 05/15/24 07:01 Morphine Sulfate (*Crx) 2 Mg/Ml Inj IV PUSH Q2H PRN Pain Rated 7-10 Morphine Sulfate 4 mg 05/21/24 13:56 Morphine Sulfate (*Crx) 4 Mg/Ml Inj IV PUSH Q4H PRN Pain Rated 7-10 Ondansetron HCl 4 mg 05/19/24 14:06 Ondansetron Inj 4 Mg/2 Ml Vial IV PUSH Q6H PRN Nausea And Vomiting Ondansetron HCl 4 mg 05/21/24 08:07 Ondansetron Inj 4 Mg/2 Ml Vial IV PUSH ONCE PRN Nausea Oxycodone HCl 5 mg 05/21/24 13:56 Oxycodone Hcl (*Crx) 5 Mg Tab Ir PO Q4H PRN Pain Rated 7-10 Pantoprazole Sodium 40 mg 05/20/24 09:00 05/22/24 08:44 Pantoprazole Sodium Iv 40 Mg Vial IV PUSH 40 mg QAM DANDRE Administration Radiology Results: IT
[2024-05-22] MEDS: DEXTROSE 5%/LACTATED RINGERS 1,000 ML 125 ML IV CONT (16:50)
--- NOTE | 2024-05-22 19:55 | WPDANESPN ---
Anes - Prog Note Post-Op Date/Time: 05/22/24 19:55 Cardiovascular status: normal Respiratory status: normal Airway patency: baseline Mental status: baseline Post-Op hydration status: normal Vital Signs: Last Vital Signs Temp 36.6 C 05/22/24 13:42 Pulse 76 05/22/24 13:42 Resp 18 05/22/24 13:42 BP 155/64 H 05/22/24 13:42 Pulse Ox 100 05/22/24 13:42 O2 Del Method Room Air 05/22/24 19:32 O2 Flow Rate 10 05/21/24 13:01 Pain Score (VAS): 0 I/O: Intake & Output 05/22/24 05/22/24 05/22/24 07:59 15:59 23:59 Intake Total 550 720 720 Balance 550 720 720 Laboratory Tests 05/22/24 06:09 05/22/24 06:09 05/22/24 06:09 WBC 9.0 RBC 3.79 L Hgb 8.3 L Hct 29.2 L MCV 77.0 L MCH 21.9 L MCHC 28.4 L RDW 22.7 H Plt Count 302 MPV 9.2 Sodium 135 L Potassium 3.6 Chloride 100 Carbon Dioxide 27 Anion Gap 8 BUN 12 Creatinine 1.10 Estim Creat Clear Calc 50 Estimated GFR > 60 Glucose 128 H Calcium 8.8 Post-procedural complaints: none Patient Feedback: Patient satisfied with anesthetic care.
[2024-05-22 20:52] VITALS: BP 162/76; PULSE 73; RESP 20; TEMP 36.8; O2SAT 99
[2024-05-23 05:59] VITALS: BP 166/59; PULSE 83; RESP 20; TEMP 38.1; O2SAT 98
[2024-05-23] MEDS: ACETAMINOPHEN 500 MG TABLET 1000 MG PO ×2 (08:48→14:22)
[2024-05-23] MEDS: ENOXAPARIN 40 MG/0.4 ML SYRINGE SUB-Q (08:48)
[2024-05-23] MEDS: ATORVASTATIN 40 MG TABLET BY MOUTH (08:48)
[2024-05-23] MEDS: PANTOPRAZOLE SODIUM IV 40 MG VIAL IV PUSH (08:49)
[2024-05-23 09:53] LABS: Hematocrit 34.4 % (42.0-52.0); Hemoglobin 9.9 g/dL (14.0-18.0); Mean Corpuscular HGB Conc 28.8 g/dl (32-36); Mean Corpuscular Hemoglobin 22.3 pg (26-34); Mean Corpuscular Volume 77.7 fl (80-100); Mean Platelet Volume 8.7 fl (7.4-10.4); Platelet Count Result 335 k/mm3 (150-375); Red Blood Count 4.43 M/mm3 (4.6-6.20); Red Cell Distribution Width 23.9 % (11.5-14.5); White Blood Count 7.5 K/mm3 (4.5-10.0)
--- NOTE | 2024-05-23 10:05 | PM.PNGS ---
Progress Note: A&P Assessment and Plan (1) Colon cancer: Code(s): C18.9 - Malignant neoplasm of colon, unspecified Status: Acute Assessment and Plan: doing well, nathanael regular diet, +flatus, cont routine postop care, OOB/IS, ok to dc home from surgical standpoint if doing well later today Subjective Subjective Date/Time Seen: 05/23/24 10:05 Interval history: feels good, nathanael diet, +flatus Review of Systems Review of Systems: All systems reviewed & are unremarkable except as noted in HPI and below Exam Const: General: cooperative, comfortable and no acute distress Resp: Auscultation: clear to auscultation bilaterally Cardio: Rate: regular rate Rhythm: regular rhythm GI: Inspection: normal to inspection, distended and incision GI Palp: Yes abdominal tenderness and Yes Soft to palpation Other: incisions C/D/I Objective Data Vital Signs Vital Signs: Vital Signs - 24 hr 05/22/24 13:42 05/22/24 19:32 05/22/24 20:52 Temperature 36.6 C 36.8 C Pulse Rate 76 73 Respiratory Rate 18 20 Blood Pressure 155/64 H 162/76 H Pulse Oximetry 100 99 Oxygen Delivery Room Air 05/23/24 05:59 Temperature 38.1 C H Pulse Rate 83 Respiratory Rate 20 Blood Pressure 166/59 H Pulse Oximetry 98 Oxygen Delivery Intake/Output Intake/Output: Intake & Output 05/20/24 05/21/24 05/22/24 05/23/24 23:59 23:59 23:59 23:59 Intake Total 2190 672 1989 840 Output Total 3 Balance 2187 672 1989 840 Meds/Results Medications: Active Medications Generic Name Dose Route Start Last Admin Trade Name Freq PRN Reason Stop Dose Admin Acetaminophen 1,000 mg 05/21/24 13:56 05/23/24 08:48 Acetaminophen 500 Mg Tablet PO 1,000 mg Q6H PRN Administration Mild Pain (1-3) or Fever Hydrocodone Bitart/Acetaminophen 1 tab 05/21/24 13:56 Hydrocodone/Acetaminophen (*Crx) 5-325 Mg Tablet PO Q4H PRN Pain Rated 4-6 Atorvastatin Calcium 40 mg 05/16/24 09:00 05/23/24 08:48 Atorvastatin 40 Mg Tablet BY MOUTH 40 mg DAILY DANDRE Administration Enoxaparin Sodium 40 mg 05/22/24 09:00 05/23/24 08:48 Enoxaparin 40 Mg/0.4 Ml Syringe SUB-Q 40 mg DAILY DANDRE Administration Fentanyl Citrate 25 mcg 05/21/24 08:07 Fentanyl Citrate Inj (*Crx) 100 Mcg/2 Ml Vial IV PUSH Q2M PRN Pain Ibuprofen 800 mg in 200 mls @ 400 mls/hr 05/21/24 13:56 Caldolor 800 Mg/200 Ml IVPB Q8H PRN Pain Rated 4-6 Dextrose/Lactated Ringer's 1,000 mls @ 125 mls/hr 05/22/24 09:10 05/23/24 07:52 Dextrose 5%/Lactated Ringers IV CONT Not Given .Q8H DANDRE Morphine Sulfate 2 mg 05/15/24 07:01 Morphine Sulfate (*Crx) 2 Mg/Ml Inj IV PUSH Q2H PRN Pain Rated 7-10 Morphine Sulfate 4 mg 05/21/24 13:56 Morphine Sulfate (*Crx) 4 Mg/Ml Inj IV PUSH Q4H PRN Pain Rated 7-10 Ondansetron HCl 4 mg 05/19/24 14:06 Ondansetron Inj 4 Mg/2 Ml Vial IV PUSH Q6H PRN Nausea And Vomiting Ondansetron HCl 4 mg 05/21/24 08:07 Ondansetron Inj 4 Mg/2 Ml Vial IV PUSH ONCE PRN Nausea Oxycodone HCl 5 mg 05/21/24 13:56 Oxycodone Hcl (*Crx) 5 Mg Tab Ir PO Q4H PRN Pain Rated 7-10 Pantoprazole Sodium 40 mg 05/20/24 09:00 05/23/24 08:49 Pantoprazole Sodium Iv 40 Mg Vial IV PUSH 40 mg QAM DANDRE Administration Radiology Results: ITS Impressions Abdomen/Pelvis CT 05/15/24 06:13 IMPRESSION: 1. Focal wall thickening of the ascending colon, consistent with primary malignancy with partial bowel obstruction. 2. Liver masses, consistent with metastatic disease. Ultrasound-guided core needle biopsy of a liver mass is recommended. Chest CT 05/16/24 09:47 IMPRESSION: 1. Liver masses, consistent with metastatic disease. Ultrasound-guided core needle biopsy is recommended. Liver Biopsy Ultrasound 05/18/24 13:28 IMPRESSION: 1. Successful Ultrasound-guided biopsy of a 1.5 cm subtly hypoechoic nodule
[2024-05-23 10:06] LABS: Alanine Aminotransferase 14 U/L (6-50); Albumin Level 3.9 g/dL (3.5-5.1); Alkaline Phosphatase 81 U/L (38-126); Anion Gap 8 mmol/L (4-12); Aspartate Amino Transferase 32 U/L (17-59); Bilirubin,Total 0.5 mg/dL (0.2-1.3); Blood Urea Nitrogen 10 mg/dL (9-20); Calcium 9.2 mg/dL (8.4-10.2); Carbon Dioxide 30 mmol/L (22-30); Chloride 98 mmol/L (98-107); Estimated CRCL calculation 60 ml/min; Estimated Glomerular Filt Rate > 60; Glucose 137 mg/dL (65-110); Sodium 136 mmol/L (137-145)
--- NOTE | 2024-05-23 12:07 | P.DS_ITS ---
DS: Admitting Diagnosis Discharge Date 05/23/2024 Admitting Diagnosis SBO secondary to colon mass/ metastatic liver adenocarcinoma DS: Discharge Diagnosis Discharge Diagnosis (1) Colon cancer: Code(s): C18.9 - Malignant neoplasm of colon, unspecified Status: Acute Assessment and Plan: * CT abdomen pelvis reveals focal wall thickening of the descending colon consistent with primary malignancy with partial bowel obstruction * Surgery consulted * GI consulted * colonoscopy performed 05/18/2024 A partially obstructing large circumferential fungating friable infiltrative malignancy this was observed in the distal ascending * Liquid Diet * Miralax PRN * Pain control * RT hemicolectomy 05/2105/22/24: * Full liquid diet * encourage activity (2) Mass of hepatic flexure of colon: Code(s): K63.89 - Other specified diseases of intestine Status: Acute Assessment and Plan: * See Above (3) Liver mass: Code(s): R16.0 - Hepatomegaly, not elsewhere classified Status: Acute Assessment and Plan: * Liver biopsy 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 guerra 2 weeks and follow-up with oncologist at [facility] for metastatic liver adenocarcinoma DS: Summary Hospital Course Reason for hospitalization: SBO secondary to colon mass/ metastatic liver adenocarcinoma Hospital Course: patient was a 78-year-old gentleman who presents emergency department with chief complaint of lower abdominal pain. Patient reports that pain started around 10 30 last night and reports that has been increasing the patient reports some lower quadrants reports worse whenever he ambulates and improved with rest. The patient reports no trauma denies fever denies vomiting denies diarrhea patient reports that the pain is tolerable whenever he is laying on the stretcher. ED evaluation revealed partial small-bowel obstruction along with ascending colon mass liver masses. 05/19/2024: Assumed Care Patient up in chair in no acute distress with no complaints. Denies any ABD pain, continues on liquid diet and having BM, plan for right hemicolectomy on Friday05/21/2024. 05/20/24: Hgb stable, no acute distress plan for surgery 05/21. Patient with no complaints and denies ABD pain. Patient passing gas and tolerating liquids. 05/21/24: Patient to have surgery today aware of the liver biopsy findings will follow outpatient with an oncologist for further evaluation and discuss treatment options. Hgb remains stable 1530: Follow-up with patient post surgery doing well alert oriented
--- NOTE | 2024-05-23 12:07 | PM.DS ---
DS: Admitting Diagnosis Discharge Date 05/23/2024 Admitting Diagnosis SBO secondary to colon mass/ metastatic liver adenocarcinoma DS: Discharge Diagnosis Discharge Diagnosis (1) Colon cancer: Code(s): C18.9 - Malignant neoplasm of colon, unspecified Status: Acute Assessment and Plan: CT abdomen pelvis reveals focal wall thickening of the descending colon consistent with primary malignancy with partial bowel obstruction Surgery consulted GI consulted colonoscopy performed 05/18/2024 A partially obstructing large circumferential fungating friable infiltrative malignancy this was observed in the distal ascending Liquid Diet Miralax PRN Pain control RT hemicolectomy 05/2105/22/24: Full liquid diet encourage activity (2) Mass of hepatic flexure of colon: Code(s): K63.89 - Other specified diseases of intestine Status: Acute Assessment and Plan: See Above (3) Liver mass: Code(s): R16.0 - Hepatomegaly, not elsewhere classified Status: Acute Assessment and Plan: Liver biopsy 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 guerra 2 weeks and follow-up with oncologist at [facility] for metastatic liver adenocarcinoma DS: Summary Hospital Course Reason for hospitalization: SBO secondary to colon mass/ metastatic liver adenocarcinoma Hospital Course: patient was a 78-year-old gentleman who presents emergency department with chief complaint of lower abdominal pain. Patient reports that pain started around 10 30 last night and reports that has been increasing the patient reports some lower quadrants reports worse whenever he ambulates and improved with rest. The patient reports no trauma denies fever denies vomiting denies diarrhea patient reports that the pain is tolerable whenever he is laying on the stretcher. ED evaluation revealed partial small-bowel obstruction along with ascending colon mass liver masses. 05/19/2024: Assumed Care Patient up in chair in no acute distress with no complaints. Denies any ABD pain, continues on liquid diet and having BM, plan for right hemicolectomy on Friday05/21/2024. 05/20/24: Hgb stable, no acute distress plan for surgery 05/21. Patient with no complaints and denies ABD pain. Patient passing gas and tolerating liquids. 05/21/24: Patient to have surgery today aware of the liver biopsy findings will follow outpatient with an oncologist for further evaluation and discuss treatment options. Hgb remains stable 1530: Follow-up with patient post surgery doing well alert oriented, denied any SOB or CP with minimal pain. Can start on liquid diet per surgery and encourage ambulation. 05/22/24: Patient up in chair mild ABD pain, no flatulence or BM currently on full liquid diet will Reyes can advance once patient's bowel function returns patient ambulatory encourage hydration and activity. Normal WBC and afebrile 05/23/24: DISCHARGED Patient postop day 2 ambulatory on own and tolerating full diet minimal abdominal pain post surgery reports gas. Patient was cleared by surgery to discharge home will have follow-up with them in 2 weeks in their office. Patient states he will follow-up with oncologist at [facility] for further evaluation and treatment of metastatic liver cancer. patient denied any new complaints was done any acute distress upon assessment. Status at Discharge Functional status at discharge: independent ambulation Time Spent with
== END 2024-05-23 14:55 | disposition home or self-care (01) | DRG 330 ==
LOC: ANHED 07:07 → ANH3MEDSUR 09:11
PROVIDERS: Internal Medicine Gastroenterology; Radiology Diagnostic Radiology; Surgery; Admitting Provider Internal Medicine; Emergency Provider Emergency Medicine; Visit Provider Nurse Practitioner Family
PROC: 0DJD8ZZ Inspection of Lower Intestinal Tract, Via Natural or Artificial Opening Endoscopic (ICD-10-PCS; CPT 45378; principal; 2024-05-17 16:00)
PROC: 0DTF4ZZ Resection of Right Large Intestine, Percutaneous Endoscopic Approach (ICD-10-PCS; CPT 44204; principal; 2024-05-21 09:00)
DX: C18.9 Malignant neoplasm of colon, unspecified (principal); C78.7 Secondary malignant neoplasm of liver and intrahepatic bile duct; K56.600 Partial intestinal obstruction, unspecified as to cause; K64.8 Other hemorrhoids; K57.30 Diverticulosis of large intestine without perforation or abscess without bleeding; D50.9 Iron deficiency anemia, unspecified; D63.8 Anemia in other chronic diseases classified elsewhere; E53.8 Deficiency of other specified B group vitamins; F17.290 Nicotine dependence, other tobacco product, uncomplicated; Z79.82 Long term (current) use of aspirin; R16.0 Hepatomegaly, not elsewhere classified
CPT/HCPCS: 36415; 36430; 47000; 71260; 74177; 76942; 80048; 80053; 81001; 82274; 82378; 82607; 82728; 82746; 83540; 83550; 83615; 83690; 83735; 85014; 85018; 85025; 85027; 85046; 85610; 85730; 86850; 86900; 86901; 86923; 88305; 88307; 88309; 88342; 96361; 96365; 96372; 99285; A9270; G0378; J0690; J1100; J1170; J1644; J1650; J1756; J1885; J2405; J2470; J2704; J3010; J3420; J7030; J7050; J7120; J7121; P9016; Q9967

== ENCOUNTER 2024-06-07 01:17 | Day surgery (SDC) | payer MEDICARE, BC, SELFPAY ==
[2024-06-03 13:00] VITALS: BMI 25.8
--- NOTE | 2024-06-03 13:29 | PC.NURSE ---
Report to the Outpatient Waiting Room, entrance under the green pavilion located off [facility], at time _11:15AM_ on date _06/07/24_. Planned Procedure Time: _1:15PM_.? Time changes happen often and if your time is changed the preop area will call you the afternoon before. - You and your visitor will be asked to self-screen and do not enter if you have any COVID symptoms. Please call surgeon if you need to reschedule. - A mask is optional within the hospital at this time. Patients may have clear liquids (water, carbonated beverages, clear teas, apple juice) until 3 hours prior to surgery with a maximum of 20 ounces. - No food from midnight until time of surgery and no smoking. Take only the following medications with a SIP of water on the morning of surgery: HYDROCODONE NEEDED DO NOT STOP ANY OF YOUR OTHER PRESCRIPTION MEDICATIONS PRIOR TO SURGERY EXCEPT THE FOLLOWING Medications to discontinue per physician NONE Date to take last dose Please no make-up, nail luxembourgish, hairspray, perfume, deodorant, or body powder the day of surgery.? No jewelry (including any body piercings) or valuables the day of surgery, leave them at home.? Please take a shower or bath the night before, or the morning of, surgery with an antibacterial soap.? Wear comfortable, loose fitting clothing.? - Jewelry must be removed prior to entering the operating room.? Rings and piercings that are not removed may be cut off. - The hospital will not accept responsibility for valuables.? - Please leave all valuables, including medications, at home the day of surgery. If you are going home after surgery, a licensed paratransit driver must drive you home.? - NO public transportation without another adult if you receive anesthesia. - We recommend that an adult stay with you for 24 hours following discharge. - We also recommend that you do not drive, make important decision, drink alcoholic beverages, or take any drugs that were not prescribed by your health care provider for at least 24 hours after your discharge time. . Follow any additional instructions given to you from your surgeon. Telephone instructions given to ____PATIENT and asked if any additional questions and then verbalized understanding. Patient advised to call surgeon office or pre surgery nurse liaison [phone] if any additional questions.
[2024-06-07] VITALS (10 sets, daily range): BP systolic 109–133; BP diastolic 64–94; PULSE 62–117; RESP 16–30; TEMP 36.2–36.3; O2SAT 97–100
--- NOTE | ~2024-06-07 | XR_ITS ---
XR chest port-a-cath/central Ordering provider: Kenneth Gerardo MD History: 78 years Male with . POST-OP, INSERTION CHASTITY CATH . Comparison: None. FINDINGS: MEDIASTINUM: The cardiac silhouette is not enlarged. Right Port-A-Cath with the tip overlying superior vena cava. LUNGS: No infiltrates, effusions or pneumothorax. OTHER: No free air under the diaphragm. IMPRESSION: No acute cardiopulmonary pathology. Reviewed, dictated and finalized at location A.
--- NOTE | ~2024-06-07 | XR_ITS ---
EXAMINATION: XR fl guide central line place DATE: 06/07/2024 14:34 INDICATION: Port placement. TECHNIQUE: 2 intraoperative fluoroscopic views of the chest were obtained. I was not present. Fluoros copy exposure time was 15 seconds. COMPARISON: Chest CT 05/16/2024 FINDINGS: There is a right subclavian port with tip in superior vena cava. IMPRESSION: 1. Port tip in superior vena cava. Reviewed, dictated and finalized at location A.
--- NOTE | 2024-06-07 11:19 | PM.IMHP ---
H&P: HPI History of Present Illness Date/Time: 06/07/24 11:19 Chief Complaint: Metastatic colon cancer Narrative: Patient is a 78-year-old gentleman who approximately 3 weeks ago underwent a hand assisted laparoscopic right hemicolectomy for an invasive partially obstructing right colon cancer. Lesions in the liver were biopsied and this showed metastatic disease to his liver. Resection with a right hemicolectomy also showed for of 23 lymph nodes positive with metastatic cancer. Patient is seen oncology and it is planned that he will undergo chemotherapy treatments. He presents now for placement of a emilie catheter to begin his chemotherapy treatments. Review of Systems Review of Systems: The remainder of the review of systems to include constitutional, HEENT, cardiovascular, respiratory, GI, , integumentary, musculoskeletal, endocrine, immunologic, hematologic, psychiatric, and neurologic are all negative except for which is mentioned above in the HPI. [facility] Past Medical History Medical History (Updated 06/07/24 @ 11:22 by Kenneth Gerardo MD) Colon cancer Colonic mass Metastatic disease Microcytic anemia Nausea Social History Social History Smoking status: Former smoker Tobacco type: cigars and smokeless tobacco Smokeless tobacco user: chewing tobacco Second hand tobacco smoke exposure: No Smoking end date: 03/22/04 Additional smoking assessment comments: 50 YRS -CHEWING TOBACCO, 30 YRS- CIGARS Alcohol intake: current Drinks per week: 28 Substance use: never Substance use type: does not use Do You Feel Safe in your Home?: Yes Lack of Transportation: YES Lack of Food: Never True Current Housing: I Do Not Have Housing Concerned About Future Housing: No Difficulty Paying Gas/Electric Bills: No Difficulty Paying for Meds: No Currently Unemployed: No Education: Associate Degree Difficulty w/ Childcare or Family Care: No Living arrangements: alone Spiritual care concerns: No Meds Home Medications and Allergies Home Medications Medication Instructions Recorded Confirmed Type aspirin 81 mg tablet 81 mg PO DAILY 05/15/24 06/03/24 History atorvastatin 40 mg tablet (Lipitor) 40 mg PO DAILY 05/15/24 06/03/24 History hydrocodone 5 mg-acetaminophen 325 1 tablet PO Q4H PRN pain #20 tabs 05/21/24 06/03/24 Rx mg tablet Allergies Allergy/AdvReac Type Severity Reaction Status Date / Time No Known Allergies Allergy Verified 06/03/24 12:58 Exam Const: General: comfortable and no acute distress HENMT: Ears: TM's normal bilaterally Face/Nose/Sinus: Normal nares present Mouth: Yes moist mucous membranes Eyes: General: appearance normal, both eyes and all related structures Sclera: sclerae normal Pupils: Equal, round and reactive pupils present EOM: EOMs intact bilaterally Neck: Neck: supple and no JVD Resp: Effort & Inspection: normal respiratory effort Auscultation: clear to auscultation bilaterally Cardio: Rate: regular rate Rhythm: regular rhythm GI: Other: Abdomen is soft and nondistended. Port site incisions are healing well without any wound complications. Small hand access midline incision is healing well without any redness or drainage and no incisional hernia. Skin: General skin exam: normal color and no rashes or lesions noted Neuro: General: gait normal Speech: normal speech Motor exam (neuro): 5/5 motor strength present throughout Sensory Exam: normal sensation Extrem: General: normal to inspection Psych: Mental Status: mental status grossly normal Affect: normal affect Assessment and Plan Assessment and plan (1) S/P right hemicolectomy: Code(s): Z90.49 - Acquired absence of other specified parts of digestive tract Status: Acute (2) Colon cancer metastasized to liver: Code(s): C18.9 - Malignant neoplasm of colon, unspecified; C78.7 - S
[2024-06-07] MEDS: LACTATED RINGERS 1,000 ML 30 ML IV CONT ×2 (12:05→16:07)
--- NOTE | 2024-06-07 12:21 | WPDHPUPDATE1 ---
History and Physical Update Update Date/Time: 06/07/24 12:21 History and Physical has been reviewed, including an updated exam of the patient. There are NO changes in the patient's condition. Risks, benefits, and alternatives have been discussed and questions answered. Patient agrees to proceed with procedure.
--- NOTE | 2024-06-07 13:06 | WPDANESEPPF ---
Anes - Initial Pre Proc Eval Procedure: Operation Date: 06/07/24 13:15 Proposed Procedures p Insertion Liu Cath - Kenneth Gerardo MD Date/Time: 06/07/24 13:06 Surgeon: Kenneth Gerardo MD Pre Op Diagnosis: Colon Ca Patient Data Age: 78 Gender: M Height: 1.8 m Weight: 84 kg Last Vital Signs Temp 97.4 F L 06/07/24 11:44 Pulse 62 06/07/24 11:44 Resp 16 06/07/24 11:44 BP 133/67 06/07/24 11:44 Pulse Ox 100 06/07/24 11:44 O2 Del Method Room Air 06/07/24 11:44 Allergies Allergy/AdvReac Type Severity Reaction Status Date / Time No Known Allergies Allergy Verified 06/03/24 12:58 Home Medications Medication Instructions Recorded Confirmed Type aspirin 81 mg tablet 81 mg PO DAILY 05/15/24 06/07/24 History atorvastatin 40 mg tablet (Lipitor) 40 mg PO DAILY 05/15/24 06/07/24 History hydrocodone 5 mg-acetaminophen 325 1 tablet PO Q4H PRN pain #20 tabs 05/21/24 06/03/24 Rx mg tablet Patient hx anesthesia problems: none Family hx anesthesia problems: none Results Review: All pre-operative results and documents have been reviewed as part of the pre-operative evaluation. [facility] Past Medical History Medical History Colon cancer Colonic mass Metastatic disease Microcytic anemia Nausea Social History Social History Smoking status: Former smoker Tobacco type: cigars and smokeless tobacco Smokeless tobacco user: chewing tobacco Second hand tobacco smoke exposure: No Smoking end date: 03/22/04 Additional smoking assessment comments: 50 YRS -CHEWING TOBACCO, 30 YRS- CIGARS Alcohol intake: current Drinks per week: 28 Substance use: never Substance use type: does not use Do You Feel Safe in your Home?: Yes Lack of Transportation: YES Lack of Food: Never True Current Housing: I Do Not Have Housing Concerned About Future Housing: No Difficulty Paying Gas/Electric Bills: No Difficulty Paying for Meds: No Currently Unemployed: No Education: Associate Degree Difficulty w/ Childcare or Family Care: No Living arrangements: alone Spiritual care concerns: No Anes - Eval Final PreProcedure Day of Procedure 06/07/24 13:06 Patient weight: normal Heart: regular rate and rhythm Lungs: clear to auscultation Airway: Mallampati scale and special considerations (Edentulous. ) Neurological: alert and oriented Last oral intake: >/= 8 hours ASA classification: III Emergent: no Anesthetic plan: proceed Anesthesia type and monitoring: general GIVS and standard monitoring Results Review: All pre-operative results and documents have been reviewed as part of the pre-operative evaluation. Colon ca w mets to liver, ex smoker quit approx 1999. Informed Consent: The patient's anesthetic plan and its attendant risks and benefits were discussed with the patient/family/POA. Questions were solicited and answers provided to the satisfaction of the patient/family/POA.
[2024-06-07] MEDS: ceFAZolin 2 GM/D5W 50 ML 2 GM/50 ML BAG IVPB (13:43)
[2024-06-07] MEDS: LIDO 1%/EPINEPHRINE 1:100,000 50 ML VIAL 10 ML INFILTRATE (14:34)
[2024-06-07] MEDS: BUPivacaine HCL 0.5% 10 ML AMP INFILTRATE (14:34)
--- NOTE | 2024-06-07 14:54 | ECG_ITS ---
Test Date: 2024-06-07 15:06:36 Measurements Intervals [place] Rate: 100 P: 0 RI: 0 QRS: 55 QRSD: 101 T: 2 QT: 363 QTc: 470 Interpretive Statements ATRIAL FIBRILLATION WITH RAPID VENTRICULAR RESPONSE MINIMAL Q WAVES- ANTEROLAT/INF LEADS BORDERLINE ST-T WAVE ABNORMALITY- INFERIOR LEADS ABNORMAL ECG No previous ECG available for comparison Electronically Signed On 06-07-2024 20:00:31 CDT by Mekhi Oneil D.O.
--- NOTE | 2024-06-07 15:13 | W.PM.PROC2 ---
Procedure Note - Detailed Date of Procedure 06/07/24 Pre-op Diagnosis Colon Ca with liver metastasis Post-op Diagnosis Same Procedure Performed placement of right subclavian vein single-lumen port a catheter with intraoperative fluoroscopy. Surgeon Kenneth Gerardo MD [employer] Worker Bambi Leonard, [facility] Anesthesia MAC Indications Patient is a 78-year-old gentleman who about 3 weeks ago had a hemicolectomy for obstructing colon cancer. Unfortunately he was found to have metastasis to his liver and metastatic disease to his regional lymph nodes. He has seen Oncology for follow-up and now presents for placement emilie catheter for anticipated chemotherapy treatments. Findings None significant Description of Procedure After informed consent was obtained patient brought to the operating room was placed supine position and then IV sedation was administered by anesthesia. The bilateral upper anterior neck and chest was then prepped and draped usual sterile fashion. Time-out was then performed correctly identifying the patient as well as procedure to be performed. He was given perioperative IV antibiotics. 1% lidocaine mixed with 0.5% Marcaine was injected just below the medial 3rd of the right clavicle. A transverse incision was administered the scalp and then dissection was carried down through the subcu tissue electrocautery. I then created subcu port pocket below the incision utilized electrocautery and blunt finger dissection subcutaneous tissues just above the pectoralis major fascia. Then with the patient head-down Trendelenburg position I then proceeded to percutaneously cannulate the right subclavian vein on the 1st pass with an 18gauge spinal needle. There was prompt performed our venous appearing blood. A guidewire was then passed through the vein into the distal superior vena cava. Intraoperative fluoroscopy was then used to confirm the tip of the guidewire was in the proper position. I then advanced a dilator breakaway sheath over the guidewire. Dilator and guidewire were removed leaving the sheath in place. A single-lumen 9.6 Tunisian silastic catheter was then advanced through the sheath into the right subclavian vein subsequent down into the right atrium of the heart. Then utilizing intraoperative fluoroscopy I visualized the tip of the catheter and then pulled back on the catheter external to the chest wall into the tip was in the distal superior vena cava. About this time the patient started to have a heart rate into the 150s. His blood pressure dropped into the high 80s systolic. He was then given some esmolol which decreased his hear rate into the low 100s. His systolic blood pressure improved. I then cut the catheter to the appropriate length and then attached to the titanium Smart Port. The port was then secured in subcu port pocket on 3 sides utilizing 3-0 Prolene sutures. I then accessed the port and flushed and aspirated blood easily. I then closed the incision utilizing interrupted 3-0 Vicryl sutures in the subcutaneous tissues. The skin edges were then approximated utilizing a running subcuticular 4 Monocryl suture. I then accessed the port percutaneously and once again aspirated blood easily and then flushed with 5000units of heparin. The incision was cleaned and then skin glue was applied. The patient tolerated the procedure well. All sponge ,needles, and instrument counts were correct at the end the procedure. He did have 1 episode of hypotension which responded to asthma wall and decrease of his tachycardia. Estimated blood loss under suture was 15cc. The patient was taken to the recovery room. A formal EKG was obtained in the recovery room in look like he had new onset atrial fibrillation with rapid ventricular rate. Chest x-ray was obtained was no evidence of pneumothorax the tip of the catheter the mid to distal superior vena cava. No pneumothorax was seen. Final reading will be deferred to Radiology reading
--- NOTE | 2024-06-07 15:27 | SUR.PHASEI ---
1525 - dr. levine spoke with Lorie via phone in regards to consulting for pt's new onset of afib 1530 - dr. guerra at bedside talking with pt
--- NOTE | 2024-06-07 15:43 | SUR.PHASEI ---
1540 - dr. smith in PACU
--- NOTE | 2024-06-07 16:06 | PM.CNCAR ---
Assessment and Plan Assessment and plan (1) Atrial fibrillation: Code(s): I48.91 - Unspecified atrial fibrillation Status: Acute Plan This is a 78-year-old man without previous cardiac history who was found to develop atrial fibrillation during his procedure for placement of a chemotherapy infusion port. Procedure was otherwise uneventful. He was still in atrial fibrillation heart rate is 100-110 he is asymptomatic and hemodynamically stable. I would recommend starting beta-travis and I have written orders for metoprolol XL 50 mg starting now. He should be anticoagulated have written orders for apixaban 5 mg q.12 hours. Since he is stable and hemodynamically not embarrassed he does not have to be admitted to the hospital with this. I will see him in the office next week to see if he is back in sinus rhythm or not and further recommendations will be forthcoming at that time. My office will reach out to him for an appointment next week. Obviously he is also about to start chemotherapy for metastatic colon cancer Baltazar Arauz MD [facility] History of Present Illness History of Present Illness Consult date/time: 06/07/24 16:06 Reason For Visit: Colon Ca Narrative: This is a 78-year-old man I am seeing at the request of the surgeon/Dr. Gerardo because of atrial fibrillation. Patient has no prior history of cardiac problems and is currently in PACU bed 1. Following placement of a chemotherapy port today as an outpatient. The patient was recently found to have colon cancer endoscopically when he says he presented with a change in bowel habits. He underwent hemicolectomy recently and unfortunately was found to have metastatic disease in his liver. For this reason he was readmitted today for placement of a chemotherapy port. He says that he has not had any cardiac problems in the past he denies any symptoms of chest pain shortness of breath palpitations syncope near syncope orthopnea PND or edema. The notes in the chart clearly indicate that he was in sinus rhythm when he went to the operating room but that during the surgery he went atrial fib. Unfortunately there are no rhythm strips or EKGs for me to review to corroborate that. Assuming that this is accurate information his atrial fib is a new diagnosis for him he has not been known to have paroxysmal atrial fib in the past he does take medication for his cholesterol but does have no history of diabetes or hypertension. 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 Review of Systems Constitutional: Constitutional: Reports fatigue Eyes: Eyes: Reports no additional eye complaints ENT: Reports system reviewed and no additional complaints, except as documented Cardiovascular: Cardiovascular: Reports no additional cardiovascular complaints Respiratory: Respiratory: Reports no additional respiratory complaints Gastrointestinal: Gastrointestinal: Reports as per HPI Musculoskeletal: Musculoskeletal: Reports no additional musculoskeletal complaints Integumentary/Breasts: Skin/Breast: Reports system reviewed and no additional complaints, except as docu Neurologic: Comments: Alert and oriented x3 Endocrine: Endocrine: Reports no additional endocrine complaints Hematologic/Lymphatic: Hematologic/Lymphatic: Reports no additional hematologic/lymphatic complaints Allergic/Immunologic: Allergic/Immunologic: Reports no additional allergic/immunologic complaints PMFSH Past Medical History Medical History Colon cancer Colonic mass Metastatic disease Microcytic anemia Nausea Social History Social History Smoking status: Former smoker Tobacco type: cigars and smokeless tobacco Smokeless tobacco user: chewing tobacco Second hand tobacco smoke exposure: No Smoking end date: 03/22/04 Additional smoking ass
[2024-06-07] MEDS: METOPROLOL SUCCINATE EXT REL 50 MG TABCR PO (16:37)
== END 2024-06-07 17:00 | disposition home or self-care (01) ==
PROVIDERS: PCP Internal Medicine; Visit Provider Surgery
PROC: (CPT 36561; principal; 2024-06-07 13:15)
DX: C18.9 Malignant neoplasm of colon, unspecified (principal); C78.7 Secondary malignant neoplasm of liver and intrahepatic bile duct; C77.9 Secondary and unspecified malignant neoplasm of lymph node, unspecified; Z90.49 Acquired absence of other specified parts of digestive tract; Z87.891 Personal history of nicotine dependence; I48.91 Unspecified atrial fibrillation
CPT/HCPCS: 36561; 77001; 93005; A9270; C1788; J0690; J1644; J2405; J2704; J3010; J7030; J7120

== ENCOUNTER 2024-09-03 08:45 | Outpatient (CLI) | payer MEDICARE, BC, SELFPAY ==
--- NOTE | ~2024-09-03 | CT_ITS ---
Clinical Indication: Colon cancer CT Scan of the Chest, Abdomen, and Pelvis with Contrast: Technique: Contiguous sections were acquired throughout the chest, abdomen, and pelvis after intraven ous administration of 100 cc of Omnipaque 350. Dose reduction technique was used on this scan by cele crespoing automated exposure control and iterative reconstruction technique. The dose-length product (DL P) was 470.50 mGy-cm. Comparison: 05/16/2024 Findings: There is no evidence of any significant mediastinal, hilar or axillary lymphadenopathy. The mediastin al soft tissues appear normal. There is no evidence of pleural or pericardial effusion. The lungs are clear. No pulmonary nodules or infiltrates are noted. Subcentimeter hypodense lesion present in the inferior hepatic lobe measuring 6 mm (axial image 156). Additional subcentimeter hypodense mass present towards the dome of liver measuring 6 mm (axial imag e 106). The spleen, pancreas, gallbladder, adrenals and kidneys are within normal limits. There are a therosclerotic calcifications of the aorta. No lymphadenopathy. No bowel obstruction or bowel wall thickening. There is evidence of prior right colonic resection. Urinary bladder is unremarkable. Markedly enlarged prostate gland present. No ascites. Stable L1 comp ression fracture. Impression: Small hypodense hepatic lesions, as above, decreased in size from prior exam, which could reflect sma ll metastatic lesions. Correlate with prior biopsy results. Postoperative changes in the large bowel. Marked prostatomegaly. Stable L1 compression fracture. Reviewed, dictated and finalized at location . LATE CLERK Impression: Small hypodense hepatic lesions, as above, decreased in size from prior exam, w hich could reflect small metastatic lesions. Correlate with prior biopsy result s. Postoperative changes in the large bowel. Marked prostatomegaly. Stable L1 compression fracture.
[2024-09-03 09:06] LABS: Estimated Glomerular Filt Rate > 60
== END 2024-09-03 08:46 | disposition home or self-care (01) ==
PROVIDERS: PCP Internal Medicine; Visit Provider Internal Medicine Hematology & Oncology
DX: C18.9 Malignant neoplasm of colon, unspecified (principal); N40.0 Benign prostatic hyperplasia without lower urinary tract symptoms; S32.010A Wedge compression fracture of first lumbar vertebra, initial encounter for closed fracture; X58.XXXA Exposure to other specified factors, initial encounter
CPT/HCPCS: 71260; 74177; Q9967

== ENCOUNTER 2024-12-15 09:55 | Outpatient (CLI) | payer MEDICARE, BC, SELFPAY ==
--- NOTE | ~2024-12-15 | CT_ITS ---
EXAMINATION: CT chest abdomen pelvis w con DATE: 12/15/2024 10:18 INDICATION: Malignant neoplasm of colon. TECHNIQUE: Computed tomography (CT) of the chest, abdomen, and pelvis was performed with 100 mL Omnip aque 350 intravenous contrast. Automated exposure control and iterative reconstruction technique were employed. The dose-length product was 499.08 mGy-cm. COMPARISON: CT 09/03/2024, 05/15/2024 FINDINGS: CHEST CT: There is chronic peripheral septal thickening in the lungs. There is a pneumatocele in right middle l obe. Calcified right lung nodules and calcified right hilar lymph nodes are consistent with old granu lomatous disease. No pleural effusion. The heart size is normal. There are coronary artery calcificat ions. No pericardial effusion. There is a right subclavian port with tip in superior vena cava. There is moderate thoracic spondylosis. ABDOMEN/PELVIS CT: There are 7 mm and 5 mm hypodense masses in right hepatic lobe, improved from 10 mm and 6 mm on 09/03. The gallbladder, spleen, pancreas, and adrenal glands are normal. There are cysts in the kidne ys measuring up to 7.8 cm on the right. There is a 4 mm stone in right kidney. There is a 3 mm stone in left kidney. The prostate is severely enlarged. There are 5 stones in the bladder measuring up to 4 mm. There is a right inguinal hernia containing fat. There is diverticulosis of the colon without e vidence of diverticulitis. There are changes of right hemicolectomy. There are no pathologically enla rged lymph nodes. There is no free intraperitoneal fluid. There is severe lumbar spondylosis. There i s a chronic compression fracture of L1. IMPRESSION: 1. Liver masses with interval improvement, consistent with metastatic disease. Reviewed, dictated and finalized at location A.
--- OUTSIDE RECORDS SUMMARY | 2024-12-15 11:06 | XMS_ITS | Encounter Summary ---
Author Organization [facility] FELECIA Campos [facility] Address [id number] [place] [address] Care Team Providers Care Senior Backup Administrator Name Role Phone Unavailable Primary Care Provider Unavailabl e Encounter Details Date Type Department Care Team (Late st Contact Info) Description 12/13/2024 Orders Only [facility] (Former[facility]3] Oncology and Hematology [facility] Mirtha [address] [place] [address] Frederick Aldana MD [address] [place] [address] Malignant neoplasm of colon, unspecified part of colon (CMS/HCC) Social History Tobacco Use Types Packs/Day Years Used Date Smoking Tobacco: Former Cigars Smokeless Tobacco: Former Chew Quit: 09/22/2003 Sex and Gender Information Value Date Recorded Sex Assigned at Not on file Legal Sex Male 10:06 AM CDT Gender Identity Not on file Sexual Orientation Not on file documented as of this encounter Plan of Treatment Upcoming Encounters Date Type Department Care Team (Late st Contact Info) Description 12/24/2024 11:45 AM CDT Office Visit [facility] ([facility]3] Oncology and Hematology Jovani Mirtha [address] [place] [address] Frederick Aldana MD [address] [place] [address] documented as of this encounter Visit Diagnoses Diagnosis Malignant neoplasm of colon, unspecified part of colon (CMS/HCC) documented in this encounter
--- OUTSIDE RECORDS SUMMARY | 2024-12-15 11:06 | XMS_ITS | Clinical Summary ---
Author Organization [facility] Giselle downs Emi Address [address] [place] [address] Care Team Providers Care Circuit Breaker Supervisor Name Role Phone Unavailable Primary Care Provider Unavailabl e Allergies No known active allergies Medications lidocaine-pril ocaine (EMLA) 2.5-2.5 % Cream Apply to affected area see administration instructions. 30 Gram 1 Active FERROUS SULFATE ORAL Take by mouth daily. Active Active Problems No known active problems Encounters Date Type Department Care Team Description 12/13/2024 Orders Only [facility] Oncology and Hematology - J[address] [place] [address] Frederick Aldana MD Malignant neoplasm of colon, unspecified part of colon (CMS/HCC) 12/08/2024 External Device Data STL ABSTRACTION Provider, Abstract 11/29/2024 Orders Only [facility] Oncology and Hematology - [place] Myrna [address] [place] [address] Frederick Aldana MD Malignant neoplasm of colon, unspecified part of colon (CMS/HCC) 11/27/2024 External Device Data STL ABSTRACTION Provider, Abstract 11/26/2024 External Device Data STL ABSTRACTION Provider, Abstract 11/23/2024 9:00 AM PULMONOLOGIST/INTENSIVIST Office Visit [facility] Oncology and Hematology [facility] Myrna [address] [place] [address] Frederick Aldana MD Malignant neoplasm of colon, unspecified part of colon (CMS/HCC) (Primary Dx) 11/23/2024 Orders Only [facility] Oncology and Hematology [facility] Myrna [address] [place] [phone] Frederick Aldana MD 11/15/2024 Orders Only [facility] Oncology and Hematology - [place]ovani Myrna [address] [place] [address] Frederick Aldana MD Malignant neoplasm of colon, unspecified part of colon (CMS/HCC) 11/10/2024 External Device Data STL ABSTRACTION Provider, Abstract 11/10/2024 Orders Only [facility] Oncology and Hematology - Jovani [address] [place] [id number] Frederick Aldana MD 11/10/2024 Abstract [facility] Oncology and Hematology - [address]ani [address] [place] [address] Frederick Aldana MD 11/01/2024 Orders Only [facility] Oncology and Hematology - Jovani [address] [place] [id number] Frederick Aldana MD Malignant neoplasm of colon, unspecified part of colon (CMS/HCC) 10/26/2024 8:30 AM PULMONOLOGIST/INTENSIVIST Office Visit [facility] Oncology and Hematology - [place] Myrna [address] [place] [address] Frederick Aldana MD Malignant neoplasm of colon, unspecified part of colon (CMS/HCC) (Primary Dx) 10/18/2024 Orders Only [facility] Oncology and Hematology - [place]ovani Myrna [address] [place] [id number] Frederick Aldana MD Malignant neoplasm of colon, unspecified part of colon (CMS/HCC) 10/14/2024 External Device Data STL ABSTRACTION Provider, Abstract 10/13/2024 Orders Only [facility] Oncology and Hematology - [place] Myrna [address] [place] [address] Frederick Aldana MD 10/12/2024 8:30 AM PULMONOLOGIST/INTENSIVIST Office Visit [facility] Oncology and Hematology - [place] Myrna [address] [place] [address] Frederick Aldana MD Malignant neoplasm of colon, unspecified part of colon (CMS/HCC) (Primary Dx) 10/04/2024 Orders Only [facility] Oncology and Hematology [facility] [address] [place] [phone] Frederick Aldana MD Malignant neoplasm of colon, unspecified part of colon (CMS/HCC) 09/29/2024 Orders Only [facility] Oncology and Hematology - Jovani [address] [place] [address] Frederick Aldana MD 09/21/2024 9:30 AM PULMONOLOGIST/INTENSIVIST Office Visit [facility] Oncology and Hematology [facility] Emi [address] [place] [address] Beverly Ferreira MD Malignant neoplasm of colon, unspecified part of colon (CMS/HCC) (Primary Dx); Metastatic colon cancer to liver (CMS/HCC); Chronic anemia; Iron deficiency anemia, unspecified iron deficiency anemia type 09/20/2024 Orders Only [facility] Oncology and Hematology [facility] Emi [address] [place] [address] Frederick Aldana MD Malignant neoplasm of colon, unspecified part of colon (CMS/HCC) from Last 3 Months Family History Medical History Relation Name Comments Diabetes Brother Heart Disease Brother No Known Problems Child No Known Problems Father No Known Problems Sister Relation Name Status Comments Brother Child Alive Father Mother Sister Social History Tobacco Use Types Packs/Day Years Used Date Smoking Tobacco: Former Cigars Smokeless Tobacco: Former Chew Quit: 09/22/2003 Tobacco Cessation:Counseling Given: Not Answered Sex and Gender Information Value Date Recorded Sex Assigned at Not on file Legal Sex Male 10:06 AM CDT Gender Identity Not on file Sexual Orientation Not on file Last Filed Vital Signs Vital Sign Reading Time Taken Comments Blood Pressure 170/94 11/23/2024 8:51 AM PULMONOLOGIST/INTENSIVIST Pulse 69 11/23/2024 8:47 AM PULMONOLOGIST/INTENSIVIST Temperature 36.2 C (97.2 F) 11/23/2024 8:47 AM PULMONOLOGIST/INTENSIVIST Respiratory Rate 15 11/23/2024 8:47 AM PULMONOLOGIST/INTENSIVIST Oxygen Saturation 97% 11/23/2024 8:47 AM PULMONOLOGIST/INTENSIVIST Inhaled Oxygen Concentration - - Weight 74.4 kg (164 lb) 11/23/2024 8:47 AM PULMONOLOGIST/INTENSIVIST Height 180.3 cm (5' 11 ) 05/27/2024 1:24 PM CDT Body Mass Index 22.87 05/27/2024 1:24 PM CDT Plan of Treatment Upcoming Encounters Date Type Department Care Team (Late st Contact Info) Description 12/24/2024 11:45 AM CDT Office Visit [facility] Oncology and Hematology - Jovani [address] [facility] [address] [place] [address] Frederick Aldana MD [address] [facility] [address] [place] [address] Health Maintenance Due Date Last Done Comments DTAP/TDAP/TD VACCINES (1 - Tdap) 1964 PNEUMOCOCCAL VACCINE 50+ YEARS (1 of 2 - PCV) 07/08/19 63 Traditional Medicare (ACO) Annual Wellness Visit 07/08 ZOSTER VACCINE (1 of 2) 1964 RSV VACCINE (60+ or ) (1 - 1-dose 75+ series) 2019 INFLUENZA VACCINE (#1) 2024 Procedures Procedure Name Priority Date/Time Associated Diagnosis Comments BASIC METABOLIC PANEL Routine 11/23/2024 1:24 PM PULMONOLOGIST/INTENSIVIST CBC WITH DIFFERENTIAL Routine 11/09/2024 8:14 AM PULMONOLOGIST/INTENSIVIST COMPREHENSIVE METABOLIC PANEL Routine 10/12/2024 3:22 PM PULMONOLOGIST/INTENSIVIST CBC WITH DIFFERENTIAL Routine 10/12/2024 2:08 PM PULMONOLOGIST/INTENSIVIST BASIC METABOLIC PANEL Routine 10/12/2024 1:28 PM PULMONOLOGIST/INTENSIVIST COMPREHENSIVE METABOLIC PANEL Routine 09/28/2024 11:26 AM PULMONOLOGIST/INTENSIVIST BASIC METABOLIC PANEL Routine 09/28/2024 11:20 AM PULMONOLOGIST/INTENSIVIST CBC WITH AUTODIFFERENTIAL Routine 2024 11:15 AM PULMONOLOGIST/INTENSIVIST CBC WITH DIFFERENTIAL Routine 09/21/2024 4:15 PM PULMONOLOGIST/INTENSIVIST BASIC METABOLIC PANEL Routine 09/21/2024 4:13 PM PULMONOLOGIST/INTENSIVIST from Last 3 Months Results * BASIC METABOLIC PANEL (11/23/2024 1:24 PM PULMONOLOGIST/INTENSIVIST) Only the most recent of4 resultswithin the time period is included. Blood us Frederick Aldana MD CHEMISTRY ORDERABLES Final Resu lt * CBC WITH DIFFERENTIAL (11/09/2024 8:14 AM PULMONOLOGIST/INTENSIVIST) Only the most recent of3 resultswithin the time period is included. Blood us Frederick Aldana MD HEMATOLOGY ORDERABLES Final Res ult * COMPREHENSIVE METABOLIC PANEL (10/12/2024 3:22 PM PULMONOLOGIST/INTENSIVIST) Only the most recent of2 resultswithin the time period is included. Blood us Frederick Aldana MD CHEMISTRY ORDERABLES Final Resu lt * CBC WITH AUTODIFFERENTIAL (09/28/2024 11:15 AM PULMONOLOGIST/INTENSIVIST) Blood us Frederick Aldana MD HEMATOLOGY ORDERABLES Final Res ult from Last 3 Months Insurance MEDICARE PART A AND B [facility]
== END 2024-12-15 09:56 | disposition home or self-care (01) ==
PROVIDERS: PCP Internal Medicine; Visit Provider Internal Medicine Hematology & Oncology
DX: C18.9 Malignant neoplasm of colon, unspecified (principal); K76.89 Other specified diseases of liver
CPT/HCPCS: 71260; 74177; Q9967

== ENCOUNTER 2025-05-24 10:21 | Outpatient (CLI) | payer MEDICARE, BC, SELFPAY ==
--- NOTE | ~2025-05-24 | CT_ITS ---
EXAMINATION: CT chest abdomen pelvis w con DATE: 05/24/2025 10:51 INDICATION: Colon cancer TECHNIQUE: Computed tomography (CT) of the chest, abdomen, and pelvis was performed with 100 mL Omnipaque-350 intravenous contrast. Automated exposure control and iterative reconstruction technique were employed. The dose-length product was 443.21 mGy-cm. COMPARISON: 12/15/2024 FINDINGS: CHEST CT: Pneumatocele in the right middle lobe. Unchanged mild peripheral septal line thickening in the lungs. Few small calcified pulmonary nodules in the superior segment of the right lower lobe and calcified right hilar lymph nodes consistent with old granulomatous disease. No pleural effusion. Heart size is normal. No pericardial effusion. Thoracic aorta is normal in caliber with no dissection. Right subclavian central venous port catheter with distal tip in the midsuperior vena cava. No pathologically enlarged thoracic lymphadenopathy. Moderate thoracic spondylosis. ABDOMEN/PELVIS CT: There are 3 new hypodense hepatic masses measuring 4.3 x 2.9 cm along the periphery of the posterior right hepatic lobe, 1.5 x 0.9 cm subcapsular nodule along the lateral more caudal right hepatic lobe and a third 2.5 x 1.8 cm mass at the caudal tip of the right hepatic lobe. Spleen, pancreas and bilateral adrenal glands are normal. There are bilateral renal cysts the largest measuring 8.1 cm arising from the upper pole of the right kidney. Bilateral nonobstructing renal stones the largest measuring 5 mm at the lower pole the right kidney and the largest on the left measuring 3 mm at the lower pole of the left kidney. Proximal right hemicolectomy with ileocolic anastomosis suture line in the right lower quadrant. No bowel obstruction. Prostatomegaly measuring 7.6 x 6.6 cm. There are 5 small stones measuring up to 2 mm in the dependent aspect of the bladder. There is small amount scattered calcified atherosclerosis of the normal caliber aorta and many of the other arteries. No free intraperitoneal gas or fluid. No pathologically enlarged abdominal or pelvic lymphadenopathy. Moderate lumbar spondylosis with chronic L1 compression fracture IMPRESSION: 1. 3 new hypodense hepatic masses concerning for metastatic disease.. 2. Bilateral nonobstructing nephrolithiasis and a few tiny bladder stones. 3. Marked prostatomegaly measuring 7.6-6.6 cm. Reviewed, dictated and finalized at location A.
--- OUTSIDE RECORDS SUMMARY | 2025-05-24 10:50 | XMS_ITS | Clinical Summary ---
Author Organization [facility] Giselle downs Emi Address [address] [place] [address] Care Team Providers Care Outreach Manager Name Role Phone Unavailable Primary Care Provider Unavailabl e Allergies No known active allergies Medications lidocaine-pril ocaine (EMLA) 2.5-2.5 % Cream Apply to affected area see administration instructions. 30 Gram 1 4 Active FERROUS SULFATE ORAL Take by mouth daily. Active CYANOCOBALAMIN , VITAMIN B-12, ORAL Take 1 Tablet by mouth daily. Active ondansetron (ZOFRAN ODT) 8 mg Tablet, Rapid Dissolve Dissolve 1 tablet on top of tongue then swallow with saliva every 8 hours as needed for nausea or vomiting 30 Tablet 1 5 Active HYDROcodone-ac etaminophen (NORCO) 5-325 mg tabletIndicati ons:Liver lesion Take 1 Tablet by mouth every 6 hours as needed for Moderate Pain. Max Daily Amount: 4 Tablets 20 Tablet 02/02/2025 5:35 PM CDT 5 Active multivitamin (DAILY-OMARI) tablet Take 1 Tablet by mouth daily. Active aspirin (ECOTRIN EC) 81 mg Tablet, Delayed Release (E.C.) Take 81 mg by mouth every other day. Active Active Problems No known active problems Encounters Date Type Department Care Team Description 05/16/2025 Orders Only [facility] Oncology and Hematology - Jov[address] [place] [address] Frederick Aldana MD Malignant neoplasm of colon, unspecified part of colon (CMS/HCC) 05/12/2025 Orders Only [facility] Oncology and Hematology - Jovani [address] [place] [address] Frederick Aldana MD 05/11/2025 External Device Data STL ABSTRACTION Provider, Abstract 05/10/2025 External Device Data STL ABSTRACTION Provider, Abstract 05/10/2025 Orders Only [facility] Oncology and Hematology - Jovani [address] [place] [address] Frederick Aldana MD Malignant neoplasm of colon, unspecified part of colon (CMS/HCC) (Primary Dx); Iron deficiency anemia, unspecified iron deficiency anemia type 05/02/2025 Orders Only [facility] Oncology and Hematology - Jovani [address] [place] [address] Frederick Aldana MD Malignant neoplasm of colon, unspecified part of colon (CMS/HCC) 04/27/2025 External Device Data STL ABSTRACTION Provider, Abstract 04/20/2025 Orders Only [facility] Oncology and Hematology - Jovani [address] [place] [address] Frederick Aldana MD 04/19/2025 9:15 AM CDT Office Visit [facility] Oncology and Hematology [facility] [address] [place] [address] Frederick Aldana MD Malignant neoplasm of colon, unspecified part of colon (CMS/HCC) (Primary Dx) 04/18/2025 Orders Only [facility] Oncology and Hematology - Jovani [address] [place] [address] Frederick Aldana MD Malignant neoplasm of colon, unspecified part of colon (CMS/HCC) 04/06/2025 External Device Data STL ABSTRACTION Provider, Abstract 04/06/2025 External Device Data STL ABSTRACTION Provider, Abstract 04/06/2025 External Device Data STL ABSTRACTION Provider, Abstract 04/04/2025 Orders Only [facility] Oncology and Hematology - Jovani [address] [place] [address] Frederick Aldana MD Malignant neoplasm of colon, unspecified part of colon (CMS/HCC) 03/21/2025 Orders Only [facility] Oncology and Hematology Jovani Emi [address] [place] [address] Frederick Aldana MD Malignant neoplasm of colon, unspecified part of colon (CMS/HCC) 03/08/2025 9:15 AM CDT Office Visit [facility] Oncology and Hematology [facility] Emi [address] [place] [address] Frederick Aldana MD Malignant neoplasm of colon, unspecified part of colon (CMS/HCC) (Primary Dx) 03/08/2025 External Device Data STL ABSTRACTION Provider, Abstract 03/07/2025 Orders Only [facility] Oncology and Hematology [facility] Emi [address] [place] [address] Frederick Aldana MD Malignant neoplasm of colon, unspecified part of colon (CMS/HCC) 02/21/2025 Orders Only [facility] Oncology and Hematology - Jovani Emi [address] [place] [address] Frederick Aldana MD Malignant neoplasm of colon, [...] Quit: 09/22/2003 Tobacco Cessation:Counseling Given: Not Answered Alcohol Use Standard Drinks/Week Comments Yes 0 (1 standard drink = 0.6 oz pur e alcohol) 3-4 cans per night Feeling Safe Answer Date Recorded Are you in a relationship wi th someone who hurts you emotionally and/or physically? No 02/02/2025 Sex and Gender Information Value Date Recorded Sex Assigned at Not on file Legal Sex Male 10:06 AM CDT Gender Identity Not on file Sexual Orientation Not on file Last Filed Vital Signs Vital Sign Reading Time Taken Comments Blood Pressure 128/81 04/19/2025 9:24 AM CDT Pulse 60 04/19/2025 9:21 AM CDT Temperature 36.7 C (98.1 F) 04/19/2025 9:21 AM CDT Respiratory Rate 16 04/19/2025 9:21 AM CDT Oxygen Saturation 95% 04/19/2025 9:21 AM CDT Inhaled Oxygen Concentration - - Weight 77.1 kg (170 lb) 04/19/2025 9:21 AM CDT Height 175.3 cm (5' 9) 02/16/2025 10:49 AM CDT Body Mass Index 25.1 02/16/2025 10:49 AM CDT Plan of Treatment Upcoming Encounters Date Type Department Care Team (Late st Contact Info) Description 05/31/2025 9:00 AM CDT Office Visit [facility] Oncology and Hematology [facility] [address] [place] [address] Sonali Pearce MD [address] [place] [address] 06/09/2025 9:45 AM CDT Office Visit [facility] Oncology [facility] [address] [place] [address] Frederick Aldana MD [address] [place] [address] Health Maintenance Due Date Last Done Comments DTAP/TDAP/TD VACCINES (1 - Tdap) 1964 ZOSTER VACCINE (1 of 2) 1964 RSV VACCINE (60+ or ) (1 - 1-dose 75+ series) 2019 INFLUENZA VACCINE (#1) 2025 0, 07/17/2019, 06/25/2016, Additional history exists PNEUMOCOCCAL VACCINE 50+ YEARS Completed 07/17/2019 , 06/25/2016 Medical Devices Implanted Type Area [employer] Device Identifier Shelf Expiration Date Model / Serial / Lot Hemostat Surg Snow 2x4in 208 - [id number] Implanted:Qt y: 1 on 02/02/2025 by Zelalem Bansal MD at [facility] N/A: Abdomen [employer] [id number] 10/22/2026 [id number] / / [id number] Procedures Procedure Name Priority Date/Time Associated Diagnosis Comments BASIC METABOLIC PANEL Routine 05/10/2025 12:53 PM CDT COMPREHENSIVE METABOLIC PANEL Routine 05/10/2025 12:50 PM CDT COMPREHENSIVE METABOLIC PANEL Routine 05/10/2025 9:41 AM CDT BASIC METABOLIC PANEL Routine 04/19/2025 2:38 PM CDT COMPREHENSIVE METABOLIC PANEL Routine 04/19/2025 12:09 PM CDT from Last 3 Months Results * BASIC METABOLIC PANEL (05/10/2025 12:53 PM CDT) Only the most recent of2 resultswithin the time period is included. Blood us Frederick Aldana MD CHEMISTRY ORDERABLES Final Resu lt * COMPREHENSIVE METABOLIC PANEL (05/10/2025 12:50 PM CDT) Only the most recent of3 resultswithin the time period is included. Blood us Frederick Aldana MD CHEMISTRY ORDERABLES Final Resu lt from Last 3 Months Insurance MEDICARE PART A AND B [facility] MEDICARE PART A AND B [facility] [employer] Medicare Part D Advance Directives For more information, please contact: [phone] * Full Code (Latest Code Status on File) Date Activated Date Inactivated Comments 02/02/2025 12:47 PM 02/02/2025 7:32 PM
== END 2025-05-24 10:22 | disposition home or self-care (01) ==
PROVIDERS: PCP Internal Medicine; Visit Provider Internal Medicine Hematology & Oncology
DX: C18.9 Malignant neoplasm of colon, unspecified (principal); R16.0 Hepatomegaly, not elsewhere classified; N20.0 Calculus of kidney; N40.0 Benign prostatic hyperplasia without lower urinary tract symptoms
CPT/HCPCS: 71260; 74177; Q9967

== ENCOUNTER 2025-05-31 08:31 | Outpatient (CLI) | payer MEDICARE, BC, SELFPAY ==
--- OUTSIDE RECORDS SUMMARY | 2025-05-31 09:00 | XMS_ITS | Encounter Summary ---
Author Organization [facility] FELECIA Campos [facility] Address [address] [place] [address] Care Team Providers Care Cigar Packer Name Role Phone Unavailable Primary Care Provider Unavailabl e Encounter Details Date Type Department Care Team (Late st Contact Info) Description 05/30/2025 Orders Only [facility] Oncology and Hematology - Jovani [address] [place] [address] Frederick Aldana MD [address] [facility] [address] [place] [address] Malignant neoplasm of colon, unspecified part of colon (CMS/HCC) Social History Tobacco Use Types Packs/Day Years Used Date Smoking Tobacco: Former Cigars Smokeless Tobacco: Former Chew Quit: 09/22/2003 Alcohol Use Standard Drinks/Week Comments Yes 0 [...] Description 05/31/2025 9:00 AM CDT Office Visit [facility] On[facility] and Hematology - Jovani [address] [place] [address] Sonali Pearce MD [address] [place] [address] Arrived 06/09/2025 9:45 AM CDT Office Visit [facility] On[facility] and Hematology [facility] [address] [facility] [address] [place] [address] Frederick Aldana MD [address] [facility] [address] [place] [address] documented as of this encounter Visit Diagnoses Diagnosis Malignant neoplasm of colon, unspecified part of colon (CMS/HCC) documented in this encounter
--- OUTSIDE RECORDS SUMMARY | 2025-05-31 09:00 | XMS_ITS | Clinical Summary ---
Author Organization [facility] Giselle downs Emi Address [address] [place] [address] Care Team Providers Care Managed Care Specialist Name Role Phone Unavailable Primary Care Provider [...] Encounters Date Type Department Care Team Description 05/30/2025 Orders Only [facility] Oncology and Hematology - Jovani [address] [place] [address] Frederick Aldana MD Malignant neoplasm of colon, unspecified part of colon (CMS/HCC) 05/16/2025 Orders Only [facility] Oncology and Hematology - Jovani [address] [place] [address] Frederick Aldana MD Malignant neoplasm of colon, unspecified part of colon (CMS/HCC) 05/12/2025 Orders Only [facility] Oncology and Hematology - Jovani [address] [place] [address] Frederick Aldana MD 05/11/2025 External Device Data STL ABSTRACTION Provider, Abstract 05/10/2025 External Device Data STL ABSTRACTION Provider, Abstract 05/10/2025 Orders Only [facility] Oncology and Hematology - Jovani [address] [place] [address] Frederick Aldana MD Malignant neoplasm of colon, unspecified part of colon (CMS/HCC) (Primary Dx); Iron deficiency anemia, unspecified iron deficiency anemia type 05/02/2025 Orders Only [facility] Oncology and Hematology - Jovani [address] [place] [address] Frederick Aldana MD Malignant neoplasm of colon, unspecified part of colon (CMS/HCC) 04/27/2025 External Device Data STL ABSTRACTION Provider, Abstract 04/20/2025 Orders Only [facility] Oncology and Hematology - Jovani [address] [place] [address] Frederick Aldana MD 04/19/2025 9:15 AM CDT Office Visit [facility] Oncology and Hematology - Jovani [address] [place] [address] Frederick Aldana MD Malignant neoplasm of colon, unspecified part of colon (CMS/HCC) (Primary Dx) 04/18/2025 Orders Only [facility] Oncology and Hematology - Jovani [address] [place] [address] Frederick Aldana MD Malignant neoplasm of colon, unspecified part of colon (CMS/HCC) 04/06/2025 External Device Data STL ABSTRACTION Provider, Abstract 04/06/2025 External Device Data STL ABSTRACTION Provider, Abstract 04/06/2025 External Device Data STL ABSTRACTION Provider, Abstract 04/04/2025 Orders Only [facility] Oncology and Hematology - Jovani [address] [place] [address] Frederick Aldana MD Malignant neoplasm of colon, unspecified part of colon (CMS/HCC) 03/21/2025 Orders Only [facility] Oncology and Hematology - Jovani [address] [place] [address] Frederick Aldana MD Malignant neoplasm of colon, unspecified part of colon (CMS/HCC) 03/08/2025 9:15 AM CDT Office Visit [facility] Oncology and Hematology [facility] [address] [place] [address] Frederick Aldana MD Malignant neoplasm of colon, unspecified part of colon (CMS/HCC) (Primary Dx) 03/08/2025 External Device Data STL ABSTRACTION Provider, Abstract 03/07/2025 Orders Only [facility] Oncology and Hematology - Jovani [address] [place] [address] Frederick Aldana MD Malignant neoplasm of colon, [...] Description 05/31/2025 9:00 AM CDT Office Visit [facility] Oncology and Hematology [facility] [address] [place] [address] Sonali Pearce MD [address] [place] [address] Arrived 06/09/2025 9:45 AM CDT Office Visit [facility] Oncology and Hematology [facility] [address] [place] [address] Frederick Aldana MD [address] [facility] [address] [place] [address] Health Maintenance Due Date Last Done Comments DTAP/TDAP/TD VACCINES (1 - Tdap) 1964 ZOSTER VACCINE (1 of 2) 1964 RSV VACCINE (60+ or ) (1 - 1-dose 75+ series) 2019 INFLUENZA VACCINE (#1) 2025 0, 07/17/2019, 06/25/2016, Additional history exists PNEUMOCOCCAL VACCINE 50+ YEARS Completed 07/17/2019 , 06/25/2016 Medical Devices Implanted Type Area Custom Tailor Apprentice Device Identifier Shelf Expiration Date Model / Serial / Lot Hemostat Surg Snow 2x4in 208 - [id number] Implanted:Qt y: 1 on 02/02/2025 by Zelalem Bansal MD at [facility] N/A: Abdomen [employer]- [employer] [id number] 10/22/2026 2082 / / [id number] Procedures Procedure [...] resultswithin the time period is included. Blood Frederick Aldana MD CHEMISTRY ORDERABLES Final Resu lt * COMPREHENSIVE METABOLIC PANEL (05/10/2025 12:50 PM CDT) Only the most recent of3 resultswithin the time period is included. Blood us Frederick Aldana MD CHEMISTRY ORDERABLES Final Resu lt from Last 3 Months Insurance MEDICARE PART A AND B [facility] SUPP MEDICARE PART A AND B [facility] RX [employer] S[employer] Medicare Part D Advance Directives For more information, please contact: [phone] * Full Code (Latest Code Status on File) Date Activated Date Inactivated Comments 02/02/2025 12:47 PM 02/02/2025 7:32 PM
[2025-05-31 11:57] LABS: Cholesterol 198 mg/dL (0-200); HDL Direct 48 mg/dL; Triglycerides 143 mg/dL (<150)
[2025-05-31 12:21] LABS: Hemoglobin A1C 4.9 % (<5.7)
[2025-05-31 12:35] LABS: Prostate Specific Antigen 5.9 ng/mL (< OR = 4.0)
== END 2025-05-31 08:32 | disposition home or self-care (01) ==
PROVIDERS: PCP Internal Medicine; Visit Provider Internal Medicine
DX: Z12.5 Encounter for screening for malignant neoplasm of prostate (principal); R97.20 Elevated prostate specific antigen [PSA]; R73.9 Hyperglycemia, unspecified; E78.5 Hyperlipidemia, unspecified
CPT/HCPCS: 36415; 80061; 83036; 84153

== ENCOUNTER 2025-07-21 10:52 | Outpatient (CLI) | payer MEDICARE, BC, SELFPAY ==
--- NOTE | ~2025-07-21 | PE_ITS ---
EXAMINATION: PET skull to mid thigh DATE: 07/21/2025 13:04 INDICATION: New hepatic lesions on prior CT concerning for metastatic disease in patient with known history of colon cancer TECHNIQUE: Blood glucose level was 102 mg/dL. 9.579 mCi of 18-fluorodeoxyglucose (18-FDG) was administered i.v. Low dose computed tomography (CT) images were acquired from the base of the brain to the proximal thighs for attenuation correction and anatomic localization. Positron emission tomography (PET) images were acquired in the same distribution beginning 48 minutes after injection. Images including fused PET/CT images were reconstructed in axial, coronal, and sagittal planes. Automated exposure control technique was employed. The dose- length product was 884.80mGy-cm. COMPARISON: CT studies dated 05/24/2025 FINDINGS: Head/neck: There is symmetric increased activity in the oral cavity, palatine tonsils, laryngeal muscles and ocular muscles without CT correlate, likely physiologic. Additional likely physiologic muscular activity extending craniocaudally along the sternocleidomastoid and scalene muscles. No pathologically enlarged cervical lymphadenopathy or suspicious foci of increased FDG uptake in the visualized head or neck. Chest: Right subclavian central venous port catheter with distal tip at the caudal superior vena cava. Pneumatocele at the junction of the right upper and middle lobes. No pneumonia, suspicious pulmonary nodules or pleural effusion. Heart size normal. Atherosclerotic coronary artery calcification is. No pericardial effusion. Calcified right hilar lymph nodes consistent with old granulomatous disease. No pathologically enlarged or FDG avid thoracic lymphadenopathy. Abdomen/pelvis/proximal thighs: Physiologic renal accumulation and excretion of FDG activity in the kidneys, bladder and along portions of ureters. Photopenic defects associated with bilateral exophytic renal cysts measuring up to 7.8 cm at the upper pole the right kidney and 3.7 cm the upper pole the left kidney. Nonobstructing bilateral nephrolithiasis. There are also a few tiny bladder stones along the dependent wall of the bladder. Normal degree and heterogenous pattern of uptake throughout the liver. No evident increased or decreased activity relative to the surrounding liver associated with the 3 previously noted hypodense lesions in the right hepatic lobe. The gallbladder, pancreas, spleen and bilateral adrenal glands are normal. Postoperative change of prior right hemicolectomy with ileocolic anastomosis in the right lower quadrant. Mild uptake scattered throughout the bowels without radiologic correlate, also likely physiologic. There are several diverticula along the sigmoid colon without adjacent from trace stranding to suggest diverticulitis. Marked prostatomegaly measuring 7.6 x 6.6 cm without focal abnormal FDG avid lesion. No other abnormal foci of increased FDG uptake or pathologically enlarged lymphadenopathy in the abdomen, pelvis or proximal thighs. Musculoskeletal: Severe lower cervical and moderate thoracic and lumbar spondylosis. Chronic L1 compression fracture. No suspicious lytic, blastic or abnormally FDG avid bone lesions. There is mild likely physiologic muscular activity along the bilateral infraspinatus and teres minor muscles bellies of the musculature at the bilateral hands and forearms. IMPRESSION: 1. No abnormal increased or decreased FDG activity associated with the 3 previously noted hypodense mass in the right hepatic lobe which would favor a benign etiology such as focal hepatic steatosis. No other FDG avid lesions suspicious for metastatic disease. Would consider pre and postcontrast MRI for further evaluation. 2. Marked prostatomegaly measuring 7.6 x 6.6 cm without focally increased FDG activity. Correlate with PSA level. 3. Nonobstructing bilateral nephrolithiasis along with a few tiny bladder stones. Reviewed, dictated and finalized at location A. IMPRESSION: 1. No abnormal increased or decreased FDG activity associated with the 3 previo usly noted hypodense mass in the right hepatic lobe which would favor a benign etiology such as focal hepatic steatosis. No other FDG avid lesions suspicious for metastatic disease. Would consider pre and postcontrast MRI for further margy luation. 2. Marked prostatomegaly measuring 7.6 x 6.6 cm without focally increased FDG a ctivity. Correlate with PSA level. 3. Nonobstructing bilateral nephrolithiasis along with a few tiny bladder stone s.
--- OUTSIDE RECORDS SUMMARY | 2025-07-21 12:02 | XMS_ITS | Clinical Summary ---
Author Organization [facility] Giselle downs Emi Address [address] [place] [address] Care Team Providers Care Nipple Machine Operator Name Role Phone Unavailable Primary Care Provider [...] or vomiting 30 Tablet 1 5 Active multivitamin (DAILY-OMARI) tablet Take 1 Tablet by mouth daily. Active Active Problems No known active problems Encounters Date Type Department Care Team Description 07/20/2025 External Device Data STL ABSTRACTION Provider, Abstract 07/13/2025 External Device Data STL ABSTRACTION Provider, Abstract 07/12/2025 External Device Data STL ABSTRACTION Provider, Abstract 07/11/2025 9:45 AM CDT Office Visit [facility] Oncology and Hematology [facility] [address] [place] [address] Frederick Aldana MD Liver lesion (Primary Dx) 06/28/2025 Orders Only [facility] Oncology and [facility] [address] [place] [address] Frederick Aldana MD Malignant neoplasm of colon, unspecified part of colon (CMS/HCC) (Primary Dx) 06/27/2025 Telephone [facility] Oncology and Hematology [facility] [address] [place] [address] Frederick Aldana MD [facility] for appts 06/20/2025 Telephone [facility] Oncology and Hematology - Jovani [address] [place] [address] Frederick Aldana MD [facility] Results 06/13/2025 Orders Only [facility] Oncology and Hematology - Jovani [address] [place] [address] Frederick Aldana MD Malignant neoplasm of colon, unspecified part of colon (CMS/HCC) 06/07/2025 External Device Data STL ABSTRACTION Provider, Abstract 06/07/2025 External Device Data STL ABSTRACTION Provider, Abstract 05/31/2025 9:00 AM CDT Office Visit [facility] Oncology and Hematology - Jovani [address] [place] [address] Sonali Pearce MD Malignant neoplasm of colon, unspecified part of colon (CMS/HCC) (Primary Dx) 05/31/2025 Orders Only [facility] Oncology and Hematology - Jovani [address] Frederick Aldana MD 05/30/2025 Orders Only [facility] Oncology and Hematology - Jovani [address] [place] [address] Frederick Aldana MD Malignant neoplasm of colon, unspecified part of colon (CMS/HCC) 05/16/2025 Orders Only [facility] Oncology and Hematology - Jovani [address] [place] [address] Frederick Aldana MD Malignant neoplasm of colon, unspecified part of colon (CMS/HCC) 05/12/2025 Orders Only [facility] Oncology and Hematology - Jovani [address] [place] [address] Frederick Aldana MD 05/11/2025 External Device Data STL ABSTRACTION Provider, Abstract 05/10/2025 External Device Data STL ABSTRACTION Provider, Abstract 05/10/2025 Orders Only [facility] Oncology and Hematology - Jovani [facility] [address] [place] [address] Frederick Aldana MD Malignant neoplasm of colon, unspecified part of colon (CMS/HCC) (Primary Dx); Iron deficiency anemia, unspecified iron deficiency anemia type 05/02/2025 Orders Only [facility] Oncology and Hematology - Jovani [address] [place] [address] Frederick Aldana MD Malignant neoplasm of colon, unspecified part of colon (CMS/HCC) 04/27/2025 External Device Data STL ABSTRACTION Provider, Abstract 04/20/2025 Orders Only [facility] Oncology and Hematology - Jovani [facility] [address] [place] [address] Frederick Aldana MD from Last 3 Months Family History Medical [...] Sign Reading Time Taken Comments Blood Pressure 177/78 07/11/2025 9:31 AM CDT Pulse 55 07/11/2025 9:28 AM CDT Temperature 36.6 C (97.9 F) 07/11/2025 9:28 AM CDT Respiratory Rate 14 07/11/2025 9:28 AM CDT Oxygen Saturation 96% 07/11/2025 9:28 AM CDT Inhaled Oxygen Concentration - - Weight 80.1 kg (176 lb 9.6 oz) 07/11/2025 9:28 A M CDT Height 175.3 cm (5' 9) 02/16/2025 10:49 AM CDT Body Mass Index 26.08 02/16/2025 10:49 AM CDT Plan of Treatment Upcoming Encounters Date Type Department Care Team (Late st Contact Info) Description 07/28/2025 4:35 PM BIOMATERIALS ENGINEER Telephone Check Up [facility] Oncology and Hematology - Jovani [address] [facility] [address] [place] [address] Frederick Aldana MD [address] [facility] [address] [place] [address] Health Maintenance Due Date Last Done Comments DTAP/TDAP/TD VACCINES (1 - Tdap) 1964 Traditional Medicare (ACO) A nnual Wellness Visit 1964 ZOSTER VACCINE (1 of 2) 1963 RSV VACCINE (60+ or ) (1 - 1-dose 75+ series) 2019 INFLUENZA VACCINE (#1) 2025 0, 07/17/2019, 06/25/2016, Additional history exists PNEUMOCOCCAL VACCINE 50+ YEARS Completed 07/17/2019 , 06/25/2016 Medical Devices Implanted Type Area Fish Filleter Device Identifier Shelf Expiration Date Model / Serial / Lot Hemostat Surg Snow 2x4in 2081 - [id number] Implanted:Qt y: 1 on 02/02/2025 by Zelalem Bansal MD at [facility] Hemostatic N/A: Abdomen J[employer]- [employer] [id number] 10/22/2026 2082 / / [id number] Procedures Procedure Name Priority Date/Time Associated Diagnosis Comments [facility] XF Routine 06/12/2025 2:16 PM CDT Malignant neoplasm of colon, unspecified part of colon (CMS/HCC) COMPREHENSIVE METABOLIC PANEL Routine 05/31/2025 3:48 PM CDT BASIC METABOLIC PANEL Routine 05/31/2025 3:35 PM CDT CBC WITH AUTODIFFERENTIAL Routine 05/31/2025 3:33 PM CDT [facility] XT DNA AND RNA Routine 05/31/2025 9:36 AM CDT Malignant neoplasm of colon, unspecified part of colon (CMS/HCC) [facility] NORMAL BLOOD Routine 9:36 AM CDT Malignant neoplasm of colon, unspecified part of colon (CMS/HCC) [facility] DNA AND RNA SOLID TUMOR Routine 05/31/2025 9:36 AM CDT Malignant neoplasm of colon, unspecified part of colon (CMS/HCC) CT CHEST ABDOMEN PELVIS W CONT Routine 05/24/2025 11:07 AM CDT BASIC METABOLIC PANEL Routine 05/10/2025 12:53 PM CDT COMPREHENSIVE METABOLIC PANEL Routine 05/10/2025 12:50 PM CDT COMPREHENSIVE METABOLIC PANEL Routine 05/10/2025 9:41 AM CDT from Last 3 Months Results * [facility] XF (06/12/2025 2:16 PM CDT) Reason for Study To identify mutations relevant to patient's cancer. 06/12/2025 2:16 PM CDT [facility] Genetic Diseases Assessed Cancer 06/12/2025 2:16 PM CDT [facility] Description of Ranges of DNA Sequences Examined 105 gene liquid biopsy 06/12/2025 2:16 PM CDT [facility] Overall Interpretation inconclusive 06/12/2025 2:16 PM CDT [facility] [email or web address] 06/12/2025 2:16 PM CDT [facility] Comment:[facility] link Low Coverage Regions BTK, FOXL2, TERT 06/12/2025 2:16 PM CDT [facility] Blood Tumor Mutational Bath Note bTMB cannot be calculated due to insufficient circulating tumor DNA. 06/12/2025 2:16 PM CDT [facility] Genomic Variant Note No reportable pathogenic variants were found. 06/12/2025 2:16 PM CDT [facility] Microsatellite Instability Note MSI-High not detected 06/12/2025 2:16 PM CDT [facility] Treatment Implications Note No reportable treatment options found. 06/12/2025 2:16 PM CDT [facility] Blood specimen (specimen) 06/01/2025 11:28 PM CDT Narrative This result has genomic variants that were not included in this document. us Sonali Pearce MD MOLECULAR ORDERABLES Final Result [facility] [address] [facility], [address] [place] [address], [facility] [address] [facility], [address] [place] [address] * COMPREHENSIVE METABOLIC PANEL (05/31/2025 3:48 PM CDT) Only the most recent of3 resultswithin the time period is included. Blood us Frederick Aldana MD CHEMISTRY ORDERABLES Final Resu lt * BASIC METABOLIC PANEL (05/31/2025 3:35 PM CDT) Only the most recent of2 resultswithin the time period is included. Blood us Frederick Aldana MD CHEMISTRY ORDERABLES Final Resu lt * CBC WITH AUTODIFFERENTIAL (05/31/2025 3:33 PM CDT) Blood us Frederick Aldana MD HEMATOLOGY ORDERABLES Final Res ult * [facility] NORMAL BLOOD (05/31/2025 9:36 AM CDT) [facility] 05/31/2025 11:00 PM CDT [facility] Comment:See NGS Report for R esults. Blood specimen (specimen) 05/31/2025 9:36 AM CDT 05/31/2025 9:37 AM CDT Sonali Pearce MD MOLECULAR ORDERABLES Final Result [facility] [address], [address] [place] [address], [facility] [address] [facility], [address] [place] [address] * [facility] DNA AND RNA SOLID TUMOR (05/31/2025 9:36 AM CDT) Reason for Study To identify somatic and germline mutations relevant to patient's cancer. 07/13/2025 1:31 PM CDT [facility] Genetic Diseases Assessed Cancer 07/13/2025 1:31 PM CDT [facility] Description of Ranges of DNA Sequences Examined 648 gene panel 07/13/2025 1:31 PM CDT [facility] Overall Interpretation positive 07/13/2025 1:31 PM CDT [facility] MSI Stable 07/13/2025 1:31 PM CDT [facility] TMB 3.2 m/MB 07/13/2025 1:31 PM CDT [facility] [email or web address] [email or web address] 07/13/2025 1:31 PM CDT [facility] Comment:[facility] link Pertinent Negatives KRAS, BRAF, NRAS 07/13/2025 1:31 PM CDT [facility] Low Coverage Regions EPHB2, KDM5D, TGFBR1 07/13/2025 1:31 PM CDT [facility] Therapy Count 1 07/13/2025 1:31 PM CDT [facility]: Potential Therapy 1 Gene: N/A Variant: Wild type: KRAS, NRAS Match Type: wildType Match Type Description: Wild type: KRAS, NRAS Agent: Cetuximab or Panitumumab Drug Class: Anti-EGFR MAb Tissue: Colorectal Cancer Association: Response Evidence Status: Consensus Evidence ID: NCCN NCCN Associated Evidence: Consensus, Colorectal Cancer MSK Associated Evidence: MSK OncoKB, Level 1 Label: FDA On Label FDA Approved?: Yes On label?: Yes 07/13/2025 1:31 PM CDT [facility] Trial Count 3 07/13/2025 1:31 PM CDT [facility]: Clinical Trial Match 1 Clinical Trial NCT ID: [id number] Clinical Trial Title: FOG-001 in Locally Advanced or Metastatic Solid Tumors Clinical Trial URL: https://clinicaltri als.gov/ct2/show/NC [email or web address] Clinical Phase: Phase 1/Phase 2 Clinical Trial Matches: APC p.E1397* mutation, APC p.Q793* mutation Clinical Trial Distance and Location: [address] [place], [place] 07/13/2025 1:31 PM CDT [facility]: Clinical Trial Match 2 Clinical Trial NCT ID: [id number] Clinical Trial Title: A Odjve-Ox-Hfhxm, Phase 1 Study Evaluating Oral TACC3 PPI Inhibitor, AO-252, in Advanced Solid Tumors With or Without Brain Metastases Clinical Trial URL: https://clinicaltri als.gov/ct2/show/NC [email or web address] Clinical Phase: Phase 1 Clinical Trial Matches: 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 Clinical Trial Distance and Location: [address] [place], [place] 07/13/2025 1:31 PM CDT [facility]: Clinical Trial Match 3 Clinical Trial NCT ID: [id number] Clinical Trial Title: Trifluridine/Tipira cil and Talazoparib for the Treatment of Patients With Locally Advanced or Metastatic Colorectal or Gastroesophageal Cancer Clinical Trial URL: https://clinicaltri als.gov/ct2/show/NC I37179324 Clinical Phase: Phase 1 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 No gene rearrangements nor reportable altered splicing events were identified from RNA sequencing. 07/13/2025 1:31 PM CDT [facility] Germline Variant Note No potential germline variants were found in the limited set of genes on which we report. 07/13/2025 1:31 PM CDT [facility] Tissue specimen (specimen) 05/31/2025 9:36 AM CDT 06/25/2025 2:44 PM CDT Narrative This result has genomic variants that were not included in this document. Sonali Pearce MD MOLECULAR ORDERABLES Edite d Result - Final [facility] [address] [facility], [address] [address], [facility] [address] [facility], [address] [address] * CT CHEST ABDOMEN PELVIS W CONT (05/24/2025 11:07 AM CDT) Anatomical Region Laterality Modality Chest Computed Tomogra phy Frederick Aldana MD CT ORDERABLES Final Result from Last 3 Months Insurance MEDICARE PART A AND B BCBS SUPP MEDICARE PART A AND B BCBS SUPP RX EXPRESS SCRIP[employer] Medicare Part D Advance Directives For more information, please contact: [phone] * Full Code (Latest Code Status on File) Date Activated Date Inactivated Comments 02/02/2025 12:47 PM 02/02/2025 7:32 PM
--- OUTSIDE RECORDS SUMMARY | 2025-07-21 12:02 | XMS_ITS | Encounter Summary ---
Author Organization [facility] Address [address] [place] [address] Care Team Providers Care Geodetic Technician Name Role Phone Unavailable Primary Care Provider Unavailabl e Encounter Details Date Type Department Care Team (Late Contact Info) Description 07/20/2025 External Device Data STL ABSTRACTION Provider, Abstract NO ADDRESS ON FILE Social History Tobacco Use Types Packs/Day Years [...] Encounters Date Type Department Care Team (Late Contact Info) Description 07/28/2025 4:35 PM LEAD TRAINER Telephone Check Up [facility] Oncology and Hematology - Jovani [address] [facility] [address] [place] [address] Frederick Aldana MD [address] [facility] [address] [place] [address] documented as of this encounter Visit Diagnoses Not on filedocumented in this encounter
== END 2025-07-21 10:53 | disposition home or self-care (01) ==
LOC: ANHIMG 10:54
PROVIDERS: PCP Internal Medicine; Visit Provider Internal Medicine Hematology & Oncology
DX: C18.7 Malignant neoplasm of sigmoid colon (principal); C78.7 Secondary malignant neoplasm of liver and intrahepatic bile duct; N20.0 Calculus of kidney; N21.0 Calculus in bladder
CPT/HCPCS: 78815; A9552